=== PATIENT | female | born 1940 | race Caucasian/White ===

== ENCOUNTER → 2017-10-30 09:32 | Outpatient (CLI) | payer MEDICARE, OTHER, SELFPAY ==
--- NOTE | 2017-10-30 09:38 | RAD_ITS ---
STUDY: X-RAY CHEST REASON FOR EXAM: Female, 76 years old. Dyspnea. Chest pain. TECHNIQUE: PA and lateral views of the chest. COMPARISON: Comparison is made with prior study dated September 09, 2012. FINDINGS: Hyperinflation. Scattered calcified granulomas. There is no demonstrated pleural abnormality. Normal size heart. Normal mediastinum and zaida. Normal visualized pulmonary arteries. Normal visualized aortic arch and descending thoracic aorta. There are diffuse degenerative changes of the visualized thoracic spine. Normal visualized ribs, clavicles, and shoulders. There is no demonstrated abnormality of the visualized soft tissue structures of the upper abdomen. RAD/Chest PA and Lateral IMPRESSION: Hyperinflation. No acute abnormality is seen. Electronically Signed: Franco Garcia MD at 20:01 EST Tel [phone], Service support ,
[2017-10-30 12:08] LABS: Absolute Lymphocyte Count 1.08 X10^3/ul (0.83-4.51); Absolute Neutrophil Count 3.4 X10^3/uL (2.0-7.7); Basophil# 0.01 X10^3/uL; Basophil% 0.2 % (0-1); Eosinophil# 0.13 X10^3/uL; Eosinophils% 2.6 % (0-5); Hematocrit 43.2 % (37-47); Hemoglobin 13.6 g/dl (12.0-15.0); Lymphocyte # 1.08 X10^3/ul (4.0); Lymphocyte % 21.3 % (19-41); Mean Corp Hgb Conc 31.5 g/gl (32-36); Mean Corpuscular Hgb 29.6 pg (27.0-32.0); Mean Corpuscular Volume 93.9 fL (81-99); Mean Platelet Vol. 11.4 fl (6.2-12.0); Monocyte# 0.46 X10^3/uL; Monocyte% 9.1 % (0-10); Neutrophil # 3.38 X10^3/uL (2.7-7.7); Neutrophil % 66.6 % (47-70); Platelet Count 188 K/mm3 (150-450); RBC Distribution Width CV 13.9 % (11.6-14.6); RBC Distribution Width SD 47.3 fl (35.1-43.9); White Blood Count 5.1 K/mm3 (4.4-11.0)
[2017-10-30 12:23] LABS: POSITIVE COUNT NO; POSITIVE DIFFERENTIAL NO; POSITIVE MORPHOLOGY NO
[2017-10-30 12:39] LABS: ALB/GLOB Ratio 0.9 RATIO (0.9-2.4); AST(SGOT) 26 U/L (15-37); Alanine Aminotransfer ALT/SGPT 31 U/L (13-56); Albumin, Serum 3.7 g/dL (3.2-5.0); Alkaline Phosphatase 64 U/L (45-117); Anion Gap 4 (5-15); BUN 15 mg/dL (7-18); BUN/Creat Ratio 12.7 RATIO (10-20); Chloride 104 mmol/L (98-107); Creatinine, Serum 1.18 mg/dL (0.55-1.02); EST Glomerular Filtration Rate 47 mL/min (>60); Est Glom Filt Rate - Afr Amer 57 mL/min (>60); Globulin 4.1 g/dL (2.2-4.2); Glucose 130 mg/dL (74-106); Lipase 356 U/L (73-393); Potassium 3.7 mmol/L (3.5-5.1); Protein, Total 7.8 g/dL (6.4-8.2); Sodium Level 140 mmol/L (136-145); Thyroid Stim Hormone (TSH) 3.09 uIU/mL (0.358-3.74)
[2017-10-31 10:29] LABS: Vitamin B12 413 pg/mL (211-911)
== END ==
PROVIDERS: Family Provider Family Medicine; PCP Family Medicine; Visit Provider Family Medicine
DX: K29.00 Acute gastritis without bleeding (principal); R07.89 Other chest pain; M54.9 Dorsalgia, unspecified; E88.81 Metabolic syndrome and other insulin resistance; E53.8 Deficiency of other specified B group vitamins
CPT/HCPCS: 36415; 71046; 80053; 82607; 83690; 84443; 85025; 87086

== ENCOUNTER 2017-12-14 14:00 | Outpatient (RCR) | payer MEDICARE, OTHER, SELFPAY ==
--- NOTE | 2017-11-14 16:36 | HP.PTEVAL_ITS ---
Patient's Visit Information BUD DIAMOND is a 76 year old F referred to Physical Therapy by Andrés ROMEO with a diagnosis of CHRONIC UPPER AND LOWER BACK PAIN. Date of Evaluation: 11/14/17 Physical Therapist: Edyta Aldana - Visit Plan Frequency: 1x/Week Duration: 7 WEEKS Plan: CONSIDER DRY NEEDLING. LAND AND AQUATIC THERAPY FOR POSTURE CORRECTION/ STRENGTHENING, INSTRUCTION IN APPROPRIATE BODY MECHANICS AND ACTIVITY MODIFICATIONS. DLS STARTING WITH A NEUTRAL SPINE PROGRESSING ROM TOLERATED. MAKENNA LE ROM, STRETCHING AND STRENGTHENING. HEP INSTRUCTION. INCLUDE VERTICAL HANG TRIAL IN POOL. 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 Disability: NO. Present symptoms: PATIENT REPORTS HER CONSTANT CHRONIC UPPER AND LOWER BACK PAIN WORSENING WITH PAIN, NUMBNESS AND TINGLING DOWN LEFT LE ALL THE WAY TO THE FOOT INTERMITTENTLY. Present since: MANY YEARS. Pain Scale: WORST 8/10, LEAST 2/10. Currently: 8/10. Commenced as a result of: NO APPARENT REASON. Symptoms at onset: LOW BACK. Worse: STANDING DOING DISHES, VACUMING, GROCERY SHOPPING, SWEEPING, HITTING BUMPS WHEN RIDING IN THE CAR. Better: GOING UP AND DOWN STAIRS RELEASES IT A LITTLE BIT. SOMETIMES ICY HOT. ALEVE. ICE PACK. Disturbed sleep: YES. Previous history/Previous treatment: PT A LONG TIME AGO - LAND AND POOL. POOL HELPED MORE. STATES SHE TRIED TENS IN THE PAST AND THERE WAS NO LASTING RELIEF. Coughing/sneezing/ straining: POSITIVE. Gait: OK FOR THE FIRST FEW MINUTES BUT THE LONGER SHE GOES THE WORSE IT GETS. Difficulty initiating urinatin: NO. Accidents: NO. Unexplained weight loss: NO. Imaging: X-RAYS FALL OF 2017 OF BACK SHOWING: Generalized osteopenia with stable postfusion changes at L4-5. There is intervertebral disc. space narrowing at L2-3, L3-4 and L4-5, relatively unchanged from the. comparison 2012 MRI study. No new or acute pathology identified. - Objective Sitting Posture: POOR. Standing Posture: POOR. STANDS WITH INCREASED TRUNK FLEXION. INCREASED KYPHOSIS, FORWARD HEAD AND ROUNDED SHOULDERS. Lordosis: DECREASED. Lateral shift: NO. Relevant shift: NO. Active Correction of posture: WORSE. Other Observations: INDEP GAIT INTO PT WITHOUT ASSITIVE DEVICE WITH DECREASED CADANCE, INCREASED TRUNK FLEXION AND DECREASED MAKENNA STRIDE LENGTH AND LEFT HIP HIKE. DECREASED LEFT HEEL STRIKE AND TOE OFF. INDEP TRANSFER SIT TO STAND WITHOUT UE ASSIST BUT VERY DIFFICULT. DIFFICULTY APPEARS TO COME MORE FROM LE WEAKNESS THAN BACK PAIN. Motor deficit: RIGHT LE 5/5 WITH MMT EXCEPT HIP 4/5. LLE: HIP FLEX 4-/5, KNEE EXT 4-/5, KNEE FLEX 4-/5, ANKLE DORSIFLEXION 2/5. Sensory deficit: MAKENNA LE LIGHT TOUCH SENSATION IS INTACT AND SYMMETRICAL WITH TESTING IN CLINIC TODAY - EVEN LEFT FOOT. ROM deficit: TIGHT MAKENNA HS'S AND GASTROC SOLEUS COMPLEX'S ALONG WITH HIP FLEXORS AND ROTATORS. Reflexes: 2/2 MAKENNA LE'S EXCEPT LEFT ACHILLES - ABSENT. Dural Signs: POSITIVE LLE. Lumbar mvmt loss: flex - MOD. ext - SAÚL. R SG - SAÚL. L SG - SAÚL. T/S MVMT LOSS: MAKENNA ROTATION - MODERATE. FLEX - MOD. EXT - SAÚL. PATIENT WITH C/O INCREASED BACK PAIN - ESPECIALLY LOW BACK, WITH SPINE ROM TESTING ALL PLANES. Core strength: POOR. Palpation: PATIENT IS VERY TENDER TODAY IN LUMBAR SPINE BUT NOT THORACIC. INCREASED MUSCLE TONE MAKENNA PARASPINALS THROUGHOUT. - Goals Goal 1:: DECREASE C/O BACK PAIN Goal Time Frame: 6-8 Weeks Goal 2:: IMPROVE LIFTING, WALKING, SITTING, STANDING, SOCIAL LIFE, TRAVEL AND HOMEMAKING FUNCTION Goal Time Frame: 6-8 Weeks Goal 3:: INSTRUCT IN PROPHYLAXIS Goal Time Frame: 6-8 Weeks - Rehabilitation Potential Rehabilitation Potential: Fair - Anticipated Interventions Patient/Client Instruction: Educate patient on: Condition, Plan of Care, Risk Factors, Benefits of Fitness Program For the Purpose of:: To improve self management Therapeutic Exercise to Include: Strength training, Body mechanics, Postural training, Flexibilty training, In an aquatic setting, Dynamic Lumbar Stabilization, Scapular Strength/Stabilization For the Purpose of:: To decrease pain, To improve ability of physical actions for home/community/work/leisure Manual Therapy Techniques to Include: Functional dry needling For the Purpose of:: To decrease pain Pelvic traction supine: Yes For the Purpose of:: To decrease pain Thank you for the opportunity to evaluate your patient. For Medicare and Medicare HMO plans, please review the plan of care and approve it. It will need to be FAXED BACK to us at [phone] for Medicare purposes. Please let me know if there are questions or concerns regarding this plan of care. Physician Signature: Date:
--- NOTE | 2017-12-14 14:44 | HP.PTDCSUM ---
HP - PT D/C Summary It has been my pleasure to treat BUD DIAMOND under orders from DR.ESMITH Zach for the diagnosis of CHRONIC UPPER AND LOWER BACK PAIN for a total of 10 visit(s). Discharge Date: 12/14/17 Please see the following information for a summary of their discharge status. - Subjective Subjective: PATIENT REPORTS SHE IS DOING A LOT BETTER. PATIENT REPORTS SHE FEELS MORE LIMBER AND ALL OF THE THERAPY HAS HELPED. PATIENT REPORTS SHE IS MUCH MORE AWARE OF HER POSTURE AND BODY MECHANICS NOW AND SHE PLANS TO CONTINUE HER HEP AND EX IN A POOL WHEN SHE CAN. - Pain LOW BACK Pain Intensity (Out of 10): 1 UPPER BACK Pain Intensity (Out of 10): 0 NECK\ Pain Intensity (Out of 10): 0 LEFT ANKLE/HEEL Pain Intensity (Out of 10): 0 - Overall Improvement % Improvement: 80 - Objective Objective/Function: ALL GOALS MET. UPON EXAM: INDEP GAIT INTO PT WITHOUT ASSITIVE DEVICE FAIR CADANCE AND SYMMETRICAL GAIT. SHE IS NO LONGER HIKING HER HIP OR LIMPING ON THE LLE. SHE STATES IT IS GOOD TODAY. INDEP TRANSFER SIT TO STAND WITHOUT UE ASSIST WITH EASE TODAY. Motor deficit: RIGHT LE 5/5 WITH MMT. LLE: HIP FLEX 4/5, KNEE EXT 4/5, KNEE FLEX 4/5, ANKLE DORSIFLEXION 3/5. PATIENT IS NOW ABLE TO FULLY DORSIFLEX HER LEFT ANKLE AGAINST GRAVITY. Sensory deficit: MAKENNA LE LIGHT TOUCH SENSATION IS INTACT AND SYMMETRICAL WITH TESTING IN CLINIC TODAY - EVEN LEFT FOOT. ROM deficit: MILD LE TIGHTNESS BUT IMPROVING. Reflexes: 2/2 MAKENNA LE'S EXCEPT LEFT ACHILLES - ABSENT. Dural Signs: NEGATIVE MAKENNA LE'S. Lumbar mvmt loss: flex - NIL. ext - SAÚL - PROVOKES INCREASED LBP. R SG - MOD. L SG - MOD - PROVOKES MILD RIGHT LOW BACK PAIN. T/S MVMT LOSS: MAKENNA ROTATION - MODERATE. FLEX - MOD. EXT - SAÚL - NO INCREASED PAIN WITH THORACIC ROM TESTING. Core strength: POOR. 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 PATIENT IS NOW ABLE TO SLS ON MAKENNA LE'S WITHOUT UE ASSIST X > 20 SEC EACH BUT A LITTLE MORE UNSTEADY ON LLE. - Goals Goal 1:: DECREASE C/O BACK PAIN Goal Progress: Goal Met Goal 2:: IMPROVE LIFTING, WALKING, SITTING, STANDING, SOCIAL LIFE, TRAVEL AND HOMEMAKING FUNCTION Goal Progress: Goal Met Goal 3:: INSTRUCT IN PROPHYLAXIS Goal Progress: Goal Met - Plan Plan: D/C TO INDEP EX - PATIENT IS CONSIDERING WATER EX AT THE [facility]. - D/C Information Discharge Comments: PATIENT IS LEAVING FOR VACATION TOMORROW. If there are questions or concerns regarding this patient's physical therapy, please feel free to call me at [phone]. Thank you for the referral of this patient. Sincerely, Edyta Aldana
== END 2017-12-14 19:00 | disposition home or self-care (01) ==
LOC: PT 14:00
PROVIDERS: Family Provider Family Medicine; PCP Family Medicine; Visit Provider Family Medicine
DX: M54.9 Dorsalgia, unspecified (principal); M54.5 Low back pain; G89.29 Other chronic pain
CPT/HCPCS: 97110; 97113; 97162; 97530

== ENCOUNTER → 2018-01-31 08:03 | Outpatient (CLI) | payer MEDICARE, OTHER, SELFPAY ==
[2018-01-31 10:15] LABS: Absolute Lymphocyte Count 1.19 X10^3/ul (0.83-4.51); Absolute Neutrophil Count 2.6 X10^3/uL (2.0-7.7); Basophil# 0.01 X10^3/uL; Basophil% 0.2 % (0-1); Eosinophil# 0.14 X10^3/uL; Eosinophils% 3.2 % (0-5); Hematocrit 40.6 % (37-47); Hemoglobin 13.1 g/dl (12.0-15.0); Lymphocyte # 1.19 X10^3/ul (4.0); Lymphocyte % 27.2 % (19-41); Mean Corp Hgb Conc 32.3 g/gl (32-36); Mean Corpuscular Volume 92.9 fL (81-99); Mean Platelet Vol. 11.5 fl (6.2-12.0); Monocyte# 0.43 X10^3/uL; Monocyte% 9.8 % (0-10); Neutrophil # 2.59 X10^3/uL (2.7-7.7); Neutrophil % 59.4 % (47-70); POSITIVE COUNT NO; POSITIVE DIFFERENTIAL NO; POSITIVE MORPHOLOGY NO; Platelet Count 162 K/mm3 (150-450); RBC Distribution Width CV 14.1 % (11.6-14.6); RBC Distribution Width SD 46.4 fl (35.1-43.9); Red Blood Count 4.37 M/mm3 (4.2-5.4); White Blood Count 4.4 K/mm3 (4.4-11.0)
[2018-01-31 11:26] LABS: Cholesterol 236 mg/dL (200); High Density Lipoprotein 38 mg/dL; Thyroid Stim Hormone (TSH) 0.54 uIU/mL (0.358-3.74); Triglycerides 157 mg/dL; Uric Acid 5.1 mg/dL (2.6-6.0); Very Low Density Lipoprotein 31 mg/dL (5-40)
[2018-01-31 11:40] LABS: Hemoglobin A1c 6.2 % (4.2-6.3)
[2018-02-01 10:34] LABS: Vitamin B12 357 pg/mL (211-911); Vitamin D,25 Hydroxy 33.1 ng/mL (29.95-100.01)
[2018-02-01 10:40] LABS: PTHIN 103.5 pg/mL (18.4-80.1)
== END ==
PROVIDERS: Family Provider Family Medicine; PCP Family Medicine; Visit Provider Family Medicine
DX: N18.3 Chronic kidney disease, stage 3 (moderate) (principal); E03.9 Hypothyroidism, unspecified; E53.8 Deficiency of other specified B group vitamins; E88.81 Metabolic syndrome and other insulin resistance; E78.00 Pure hypercholesterolemia, unspecified
CPT/HCPCS: 36415; 80061; 82043; 82306; 82570; 82607; 82746; 83036; 83970; 84443; 84550; 85025

== ENCOUNTER → 2018-02-11 10:10 | Outpatient (CLI) | payer MEDICARE, OTHER, SELFPAY ==
--- NOTE | 2018-02-11 10:10 | DT_ITS ---
This patient was seen during an EMR downtime February 11, 2018 - February 18, 2018. This patient may have a combination of paper and electronic documentation or all paper documentation. All documentation is viewable within the e-chart portion of [facility] for each patient visit.
--- NOTE | 2018-02-11 10:15 | US_ITS ---
STUDY: THYROID ULTRASOUND REASON FOR EXAM: Female, 77 years old. Hyperparathyroidism. TECHNIQUE: Ultrasound evaluation of the thyroid was performed with real-time and static cifuentes-scale imaging. COMPARISON: None. FINDINGS: RIGHT LOBE: The right lobe of the thyroid gland measures 3 x 0.9 x 0.9 cm. There is a heterogeneous echotexture. There are no demonstrated solid, cystic or complex lesions. There is normal vascularity on Doppler imaging. LEFT LOBE: The left lobe of the thyroid gland measures 2.3 x 0.7 x 0.6 cm. There is a heterogeneous echotexture. There are no demonstrated solid, cystic or complex lesions. There is normal vascularity on Doppler imaging. ISTHMUS: The isthmus measures 0.1 cm. The regional lymph nodes are normal. US/Thyroid IMPRESSION: Small heterogenous thyroid. There is no visualized masses. Electronically Signed: Leonard Howard DO at 16:10 EDT Tel [phone], Service support ,
== END ==
PROVIDERS: Family Provider Family Medicine; PCP Family Medicine; Visit Provider Family Medicine
DX: N25.81 Secondary hyperparathyroidism of renal origin (principal)
CPT/HCPCS: 76536

== ENCOUNTER → 2018-03-19 09:39 | Outpatient (CLI) | payer MEDICARE, OTHER, SELFPAY ==
[2018-03-19 09:47] VITALS: BP 162/84; PULSE 76; RESP 18; TEMP 36.1; O2SAT 96; BMI 31.5
[2018-03-19] MEDS: Zoledronic Acid 5 MG 100 ML 300 MG IV (10:04)
== END ==
PROVIDERS: Family Provider Family Medicine; PCP Family Medicine; Visit Provider Family Medicine
DX: M81.0 Age-related osteoporosis without current pathological fracture (principal)
CPT/HCPCS: 96365; A4216; J3489

== ENCOUNTER → 2018-03-25 15:15 | Outpatient (CLI) | payer MEDICARE, OTHER, SELFPAY ==
--- NOTE | 2018-03-25 15:17 | BI_ITS ---
MAMMOGRAPHY - BILATERAL SCREENING REASON FOR EXAM: Female, 77 years old. Routine annual screening examination. PERTINENT HISTORY: Non-contributory. TECHNIQUE: Digital bilateral breast nona (3D mammographic acquisition) in the CC and MLO projections. 2-D mediolateral oblique (MLO) and craniocaudad (CC) views of both breasts were obtained. CAD: Full Field Digital Mammography with Computer Added Detection was performed. COMPARISON: Comparison is made with prior study dated October 13, 2013 and December 14, 2011. FINDINGS: Breast Composition: The breasts are almost entirely fatty. There are no dominant masses or suspicious calcifications. Stable appearance of the benign-appearing bilateral axillary lymph nodes. No other significant abnormalities are identified. There has been no significant change since the prior study. BI/SCREENING MAMM (CAD), BILAT IMPRESSION: Stable bilateral screening mammogram. Yearly follow-up mammogram recommended. (A) ASSESSMENT CATEGORY: BIRADS Category 2: Benign. A letter regarding these results will be sent to the patient by the facility within 30 days. Approximately 10% of breast cancers are not detected by mammography. A normal mammogram should not delay biopsy of a clinically suspicious abnormality. [id number] Electronically Signed: Franco Garcia MD at 7:52 EDT Tel [phone], Service support ,
== END ==
PROVIDERS: Family Provider Family Medicine; PCP Family Medicine; Visit Provider Family Medicine
DX: Z12.31 Encounter for screening mammogram for malignant neoplasm of breast (principal)
CPT/HCPCS: 77063; 77067

== ENCOUNTER → 2018-09-13 08:17 | Outpatient (CLI) | payer MEDICARE, OTHER, SELFPAY ==
[2018-03-19 09:47] VITALS: BMI 31.5
[2018-09-13 10:18] LABS: Absolute Lymphocyte Count 1.32 X10^3/ul (0.83-4.51); Absolute Neutrophil Count 2.5 X10^3/uL (2.0-7.7); Eosinophil# 0.15 X10^3/uL; Eosinophils% 3.4 % (0-5); Hematocrit 41.2 % (37-47); Lymphocyte # 1.32 X10^3/ul (4.0); Lymphocyte % 29.9 % (19-41); Mean Corp Hgb Conc 31.6 g/gl (32-36); Mean Corpuscular Hgb 29.1 pg (27.0-32.0); Mean Corpuscular Volume 92.2 fL (81-99); Mean Platelet Vol. 10.4 fl (6.2-12.0); Monocyte# 0.39 X10^3/uL; Monocyte% 8.8 % (0-10); Neutrophil # 2.54 X10^3/uL (2.7-7.7); Neutrophil % 57.7 % (47-70); Platelet Count 174 K/mm3 (150-450); RBC Distribution Width CV 14.2 % (11.6-14.6); RBC Distribution Width SD 48.4 fl (35.1-43.9); Red Blood Count 4.47 M/mm3 (4.2-5.4); White Blood Count 4.4 K/mm3 (4.4-11.0)
[2018-09-13 10:21] LABS: POSITIVE COUNT NO; POSITIVE DIFFERENTIAL NO; POSITIVE MORPHOLOGY NO
[2018-09-13 10:32] LABS: Vitamin D,25 Hydroxy 49.9 ng/mL (29.95-100.01)
[2018-09-13 10:34] LABS: BUN 16 mg/dL (7-18); BUN/Creat Ratio 13.6 RATIO (10-20); Calcium,Total 8.8 mg/dL (8.5-10.1); Chloride 105 mmol/L (98-107); Cholesterol 266 mg/dL (200); Creatinine, Serum 1.18 mg/dL (0.55-1.02); EST Glomerular Filtration Rate 47 mL/min (>60); Est Glom Filt Rate - Afr Amer 57 mL/min (>60); Glucose 112 mg/dL (74-106); Potassium 4.2 mmol/L (3.5-5.1); Sodium Level 142 mmol/L (136-145); Triglycerides 186 mg/dL
[2018-09-13 10:35] LABS: Anion Gap 9 (5-15); High Density Lipoprotein 39 mg/dL; Thyroid Stim Hormone (TSH) 2.07 uIU/mL (0.358-3.74); Very Low Density Lipoprotein 37 mg/dL (5-40)
[2018-09-13 10:43] LABS: Microalbumin,Random Urine 12.4 mg/L (NO RANGE EST.)
== END ==
PROVIDERS: Family Provider Family Medicine; PCP Family Medicine; Visit Provider Family Medicine
DX: E03.9 Hypothyroidism, unspecified (principal); N18.3 Chronic kidney disease, stage 3 (moderate); N25.81 Secondary hyperparathyroidism of renal origin
CPT/HCPCS: 36415; 80048; 80061; 82043; 82306; 83970; 84443; 85025

== ENCOUNTER → 2019-01-23 | Outpatient (CLI) | payer MEDICARE, OTHER, SELFPAY ==
[2018-03-19 09:47] VITALS: BMI 31.5
[2019-01-23 17:39] LABS: Hematocrit 40.3 % (37-47); Hemoglobin 12.9 g/dl (12.0-15.0); Mean Corpuscular Hgb 29.2 pg (27.0-32.0); Mean Corpuscular Volume 91.2 fL (81-99); Platelet Count 163 K/mm3 (150-450); RBC Distribution Width CV 14.5 % (11.6-14.6); RBC Distribution Width SD 47.6 fl (35.1-43.9); Red Blood Count 4.42 M/mm3 (4.2-5.4); White Blood Count 5.2 K/mm3 (4.4-11.0)
[2019-01-23 17:44] LABS: Scan Indicated on CBC? Y/N NO
[2019-01-23 18:00] LABS: Albumin, Serum 3.6 g/dL (3.2-5.0); BUN 19 mg/dL (7-18); BUN/Creat Ratio 15.1 RATIO (10-20); Creatinine, Serum 1.26 mg/dL (0.55-1.02); EST Glomerular Filtration Rate 44 mL/min (>60); Est Glom Filt Rate - Afr Amer 53 mL/min (>60); Glucose 145 mg/dL (74-106); Protein, Total 6.9 g/dL (6.4-8.2)
[2019-01-23 18:01] LABS: ALB/GLOB Ratio 1.1 RATIO (0.9-2.4); AST(SGOT) 40 U/L (15-37); Alanine Aminotransfer ALT/SGPT 36 U/L (13-56); Alkaline Phosphatase 58 U/L (45-117); Anion Gap 7 (5-15); Calcium,Total 8.9 mg/dL (8.5-10.1); Chloride 105 mmol/L (98-107); Globulin 3.3 g/dL (2.2-4.2); Magnesium 2.4 mg/dL (1.6-2.6); Potassium 4.1 mmol/L (3.5-5.1); Sodium Level 142 mmol/L (136-145); Thyroid Stim Hormone (TSH) 1.16 uIU/mL (0.358-3.74)
[2019-01-27 11:17] LABS: H. PYLORI STOOL AG Negative (Negative)
== END | disposition home or self-care (01) ==
LOC: MFPLAB 15:39
PROVIDERS: Family Provider Family Medicine; PCP Family Medicine; Referring Provider Family Medicine; Visit Provider Family Medicine
DX: K21.9 Gastro-esophageal reflux disease without esophagitis (principal); R19.7 Diarrhea, unspecified
CPT/HCPCS: 36415; 80053; 83735; 84443; 85027

== ENCOUNTER → 2019-09-04 09:33 | Outpatient (CLI) | payer MEDICARE, OTHER, SELFPAY ==
[2019-09-04 10:51] LABS: Anion Gap 5 (5-15); BUN 15 mg/dL (7-18); BUN/Creat Ratio 13.9 RATIO (10-20); Calcium,Total 8.7 mg/dL (8.5-10.1); Chloride 108 mmol/L (98-107); Cholesterol 229 mg/dL (200); Creatinine, Serum 1.08 mg/dL (0.55-1.02); EST Glomerular Filtration Rate 52 mL/min (>60); Est Glom Filt Rate - Afr Amer 63 mL/min (>60); Glucose 101 mg/dL (74-106); High Density Lipoprotein 41 mg/dL; Potassium 3.9 mmol/L (3.5-5.1); Sodium Level 142 mmol/L (136-145); Thyroid Stim Hormone (TSH) 0.18 uIU/mL (0.358-3.74); Triglycerides 170 mg/dL; Very Low Density Lipoprotein 34 mg/dL (5-40)
== END ==
PROVIDERS: Nurse Practitioner Family; Family Provider Family Medicine; PCP Family Medicine; Visit Provider Family Medicine
DX: N18.3 Chronic kidney disease, stage 3 (moderate) (principal); E78.00 Pure hypercholesterolemia, unspecified; E03.9 Hypothyroidism, unspecified
CPT/HCPCS: 36415; 80048; 80061; 84443

== ENCOUNTER 2019-09-23 19:50 | Observation (INO) | payer MEDICARE, OTHER, SELFPAY ==
[2019-09-23 19:51] VITALS: BP 218/102; PULSE 121; RESP 17; TEMP 36.9; O2SAT 98; BMI 27.4
--- NOTE | 2019-09-23 19:53 | ED.RN ---
RN CALLED FOR EKG, PULLED OLD EKGS FOR
--- NOTE | 2019-09-23 20:42 | EKG12_ITS ---
Test Reason : CP Blood Pressure : / mmHG Vent. Rate : 144 BPM Atrial Rate : 144 BPM P-R Int : 130 ms QRS Dur : 082 ms QT Int : 288 ms P-R-T Axes : 076 042 033 degrees QTc Int : [address] & T wave abnormality, consider inferior ischemia Abnormal ECG Confirmed by ARPIT HOPSON, MILLIE ([id number]), sound editor ARMINDA MEDINA ([id number]) on 09/26/2019 9:57:43 AM Referred By: HEBERT Confirmed By:CLARISSA MUNSON MD
--- NOTE | 2019-09-23 20:44 | RAD_ITS ---
STUDY: X-RAY CHEST REASON FOR EXAM: Female, 78 years old. chest pain TECHNIQUE: AP COMPARISON: September 09, 2012 FINDINGS: Lungs are mildly hyperinflated but clear.. There is no demonstrated pleural abnormality. Normal size heart. Normal mediastinum and zaida. Normal visualized pulmonary arteries. Normal visualized aortic arch and descending thoracic aorta. Dorsal spine demonstrates mild degenerative change. Normal visualized ribs, clavicles, and shoulders. There is no demonstrated abnormality of the visualized soft tissue structures of the upper abdomen. RAD/Chest 1 View (Portable) IMPRESSION: Mild hyperinflation. No acute disease Electronically Signed: Jin Maxwell MD at 21:12 EST , Service support ,
[2019-09-23 20:53] LABS: Absolute Lymphocyte Count 2.96 X10^3/uL (0.83-4.51); Basophil# 0.02 X10^3/uL; Basophil% 0.3 % (0-1); Eosinophil# 0.15 X10^3/uL; Eosinophils% 2.2 % (0-5); Hematocrit 44.5 % (37-47); Hemoglobin 14.3 g/dL (12.0-15.0); Lymphocyte # 2.96 X10^3/ul (4.0); Lymphocyte % 43.9 % (19-41); Mean Corp Hgb Conc 32.1 g/dL (32-36); Mean Corpuscular Hgb 29.7 pg (27.0-32.0); Mean Corpuscular Volume 92.5 fL (81-99); Mean Platelet Vol. 11.1 fl (6.2-12.0); Monocyte# 0.59 X10^3/uL; Monocyte% 8.7 % (0-10); NRBC Flagged by Analyzer 0 % (0-5); Neutrophil # 3.02 X10^3/uL (2.7-7.7); Neutrophil % 44.8 % (47-70); Platelet Count 185 K/mm3 (150-450); RBC Distribution Width CV 13.3 % (11.6-14.6); RBC Distribution Width SD 44.9 fl (35.1-43.9); Red Blood Count 4.81 M/mm3 (4.2-5.4); White Blood Count 6.8 K/mm3 (4.4-11.0)
[2019-09-23] MEDS: Aspirin 81 MG TAB.CHEW 324 MG PO (20:54)
[2019-09-23 21:07] LABS: Anion Gap 7 (5-15); BUN 14 mg/dL (7-18); BUN/Creat Ratio 10.1 RATIO (10-20); Calcium,Total 9.4 mg/dL (8.5-10.1); Chloride 106 mmol/L (98-107); Creatinine, Serum 1.38 mg/dL (0.55-1.02); EST Glomerular Filtration Rate 39 mL/min (>60); Est Glom Filt Rate - Afr Amer 48 mL/min (>60); Glucose 151 mg/dL (74-106); Potassium 3.2 mmol/L (3.5-5.1); Sodium Level 140 mmol/L (136-145)
[2019-09-23 22:00] VITALS: BP 149/89; PULSE 99; RESP 14; O2SAT 95
--- NOTE | 2019-09-23 22:31 | ED.DCSUM_ITS ---
- ER Visit Summary Date of Service: 09/23/19 Chief Complaint: Left shoulder pain History of Present Illness: The patient is a 78 F presenting with left shoulder pain and elevated blood pressure. Her symptoms been intermittent for the past 2 days. She has left shoulder pain that radiates to her left arm and left side of her jaw. She has intermittent left arm tingling. She denies shortness of breath. She has nausea with no vomiting. She has had a mild headache. She has a history of hypertension, hypercholesterolemia. She is not a smoker. No recent injury Physical Examination: Vitals are stable. Blood pressure 218/102. Patient is afebrile. Alert no acute distress. HEENT exam is unremarkable. Neck is supple. Lungs are clear and equal bilaterally. Heart is regular rate and rhythm. Abdomen is soft nontender nondistended. Extremities are unremarkable. Skin is warm and dry. No focal neurologic deficit. Remainder of exam is unremarkable. Emergency Department Course and Treatment: EKG is sinus tachycardia rate of 114 with no acute ischemic changes. Chest x-ray shows no acute process. CBC, chemistries unremarkable other than potassium 3.2, creatinine 1.38. Troponin is negative. Patient was given aspirin on arrival. She is pain-free on reevaluation. Discussed with hospitalist for admission. Disposition: Admission Impression: Left shoulder and jaw pain, hypertension This note was generated with [employer] dictation software. It may contain incorrect words, spelling, and punctuation that were not noted in review of the chart prior to signing ED Disposition - Plan for ED Patient: Referrals: Andrés Sagastume MD [Primary Care Provider] -
--- NOTE | 2019-09-23 22:50 | HP.PCM_ITS ---
Problem List (1) Chest pain Status: Acute Qualifiers: Ischemic chest pain type: unspecified angina pectoris type (2) GERD (gastroesophageal reflux disease) Status: Chronic Qualifiers: Esophagitis presence: esophagitis presence not specified Qualified Code(s): K21.9 - Gastro-esophageal reflux disease without esophagitis (3) HLD (hyperlipidemia) Status: Chronic Qualifiers: Hyperlipidemia type: unspecified Qualified Code(s): E78.5 - Hyperlipidemia, unspecified (4) HTN (hypertension) Status: Chronic Qualifiers: Hypertension type: essential hypertension Qualified Code(s): I10 - Essential (primary) hypertension (5) Hypothyroidism Status: Chronic Qualifiers: Hypothyroidism type: unspecified Qualified Code(s): E03.9 - Hypothyroidism, unspecified (6) History of throat cancer Status: Chronic History of Present Illness Date of Admission: 09/23/19 Chief Complaint: Chest pain, neck pain The patient is a 78 y/o F w/ PMHx: Hx Throat CA s/p resection and radiation, HTN, Hypothyroidism, CKD stage III who presents to the [facility] ED on 09/23/19 with history of intermittent diffuse L shoulder pain, LUE and L jaw, nausea without emesis with malaise, fatigue, noted she felt terrible but no specific descriptor, not worse with movement nor any improvement with interventions, no associated dyspnea, diaphoresis, worse on day of ED presentation, described as a tightness and a pressure, 2-3 out of 10 at its worse noted is in discomfort more than a pain. Upon evaluation patient noted she had mildly improved to 0-1 out of 10 in severity. Work-up in the ED included T 98.5, heart rate initially 121 with improvement to 99, BP initially 218/102 with improvement to 149/89, respiratory rate 17, 98% on room air, CBC with WBC 6.8, hemoglobin 14.3, platelet 185 without evidence of left shift, BMP with potassium 3.2, BUN/creatinine 14/1.38, glucose 151, troponin less than 0.015, chest x-ray with mild hyperinflation with no acute cardiopulmonary findings, EKG with sinus tachycardia with no acute evidence of ischemia. In the ED patient ministered aspirin 324 mg p.o. x1. Past Medical History Past Medical History (Chronic Problems): Chronic Problems History of throat cancer (Chronic) History of chest pain (Chronic) Osteoporosis (Chronic) Lumbago (Chronic) Hypothyroidism (Chronic) HTN (hypertension) (Chronic) HLD (hyperlipidemia) (Chronic) GERD (gastroesophageal reflux disease) (Chronic) Type II diabetes mellitus, uncontrolled (Chronic) Allergies No Known Allergies Allergy (Verified 09/23/19 19:58) Home Medications: Ambulatory Orders Medication Instructions Recorded Aspirin 81 mg PO DAILY 03/19/18 Febuxostat [Uloric] 20 mg PO DAILY 03/19/18 Levothyroxine [Synthroid] 75 mcg PO DAILY 03/19/18 Lisinopril [Zestril] 10 mg PO DAILY 03/19/18 Metoprolol Tartrate [Lopressor 25 mg PO DAILY 03/19/18 (Beta Mathew)] Surgical History: cholecystectomy, - - Cataract surgery, lumbar back surgery with hardware, cholecystectomy. 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 Denies: Chills, Fever, Weight Change HEENT: Reports: Head Aches. Denies: Sinus Congestion, Sinus Drainage Cardiovascular: Reports: Chest Pain, Chest Pressure, Chest Tightness. Denies: Edema, Heaviness, Light Headedness, Orthopnea, Palpitations, Syncope Respiratory: Denies: Cough, Shortness of Breath, Shortness of breath at rest, Shortness of breath upon exertion, Sputum production, Wheezing Gastrointestinal: Denies: Abdominal Pain, Nausea, Vomiting Genitourinary: Denies: Dysuria Musculoskeletal: Reports: Arm Pain, Joint Pain, Neck Pain, Shoulder Pain. Denies: Joint Tenderness Skin: Denies: Rash, Wounds Neurological: Denies: Numbness, Tingling, Focal weakness Psychiatric: Denies: Anxiety, Depression, Homicidal Ideations, Suicidal Ideations Hematologic/ Lymphatic: Denies: Easy Bruising, Easy Bleeding VTE Information - Inpt Only VTE Present on Admission: No VTE Mechan Device Prophylaxis: SCD's VTE Pharm Prophylaxis ordered?: Yes Patient Problems: Active and Suspected Problems Chest pain (Acute) Subjective: Seated upright in ED bed, mildly fatigued appearance, notes chest discomfort has mildly improved, 0-1 out of 10 in severity currently. Objective: Physical Examination: General: awake, alert, oriented x 3 and cooperative, seated upright in the ED bed in no apparent distress, notes chest discomfort has lessened, fatigued appearing. Skin: normal color, turgor, no icterus, cyanosis. HEENT: AT/NC, EOMI, PERRLA, dry MM, no carotid bruits or JVD noted, no reproducible discomfort with palpation of the neck and upper back as well as shoulder on the left side. Lungs: CTA bilaterally, moderate effort, daughter at decrease BL bases, no rales, ronchi or wheezing. Heart: Regular rate and rhythm; no gallop, rub audible. Abdomen: soft, NTTP, ND, normal BS, no HSM. Extremities: no cyanosis, clubbing, or edema. Neurological: patient awake, alert, oriented x 3; cognitive function intact; pupils equally reactive to light and accomodation; cranial nerves II-XII grossly normal, moving all 4 extremities, no focal deficits, strength mildly globally Carmita secondary to acute presentation and complaints. Psychiatric: affect appears fatigued, no acute evidence of depressive or anxiety feelings. - Physical Exam Vitals/I&O's: Vital Signs Temp Pulse Resp BP Pulse Ox 98.5 F 99 14 149/89 H 95 09/23/19 19:51 09/23/19 22:00 09/23/19 22:00 09/23/19 22:00 09/23/19 22:00 Oxygen Delivery Method Room Air Weight: 150 lb Body Mass Index (BMI) 27.4 Laboratory Results 09/23/19 20:00: WBC 6.8, RBC 4.81, Hgb 14.3, Hct 44.5, MCV 92.5, MCH 29.7, MCHC 32.1, RDW Std Deviation 44.9 H, RDW Coeff of Claude 13.3, Plt Count 185, MPV 11.1, Immature Gran % (Auto) 0.100, Neut % (Auto) 44.8 L, Lymph % (Auto) 43.9 H, Hinds % (Auto) 8.7, Eos % (Auto) 2.2, Baso % (Auto) 0.3, Absolute Neuts (auto) 3.0, Absolute Lymphs (auto) 2.96, Nucleated RBC % 0 01/14/20 20:00: Sodium 140, Potassium 3.2 L, Chloride 106, Carbon Dioxide 27.0, Anion Gap 7, BUN 14, Creatinine 1.38 H, Estim Creat Clear Calc 27.00, Est GFR (MDRD) Af Amer 48 L, Est GFR (MDRD) Non-Af 39 L, BUN/Creatinine Ratio 10.1, Glucose 151 H, Calcium 9.4, Troponin I < 0.015 Assessment/Plan All Active Problems Chest pain (Acute) The patient is a 78 y/o F w/ PMHx: Hx Throat CA s/p resection and radiation, HTN, Hypothyroidism, CKD stage III who presents to the [facility] ED on 09/23/19 with history of intermittent diffuse L shoulder pain, LUE and L jaw, nausea without emesis with malaise, fatigue, noted she felt terrible but no specific descriptor, not worse with movement nor any improvement with interventions, no associated dyspnea, diaphoresis, worse on day of ED presentation. 1. Chest Pain: EKG in ED with sinus tachycardia with no acute evidence of ischemia, CXR w/ no acute cardiopulmonary findings, initial trop x1. Will admit to CCU, place on a monitored bed to assure no acute myocardial infarction with serial cardiac enzymes and EKGs. If repeat EKGs and cardiac enzymes remain unremarkable will pursue a.m. cardiac stress testing. ASA, NG, morphine. FLP in AM. Mag pending. 2. Hypokalemia: Admission K+ 3.2, supplementation given, repeat level in AM. 3. Hyperglycemia w/ ? Prior Noted Diabetes mellitus type II: Prior noted DM in the chart, not on regimen, discussed and did not admit to DM history. Admission glucose 151, likely stress response, will obtain hemoglobin A1c to be cautious. 4. Chronic Kidney Disease Stage III: Admission BUN/Cr 14/1.38, baseline renal function 1.1-1.2, repeat BMP in AM. 5. Hypertension: Continue home regimen including metoprolol, lisinopril, PRN hydralazine. 6. Hypothyroidism: Continue home synthroid regimen, TSH and FT4 pending. 7. History of throat cancer: Status post resection as well as radiation, remission. 8. DVT prophylaxis: SCDs, heparin. 9. CODE status: Patient's who is present is her healthcare power of claims attorney and she does have a living will in place. Discussed CODE status at length including difference between FULL code, DNR-CCA and DNR-CC status. Following discussions about the differences in these status, requested Full Code status; however, notes that if her prognosis was poor she would prefer to then transition to a DNR CCA. Discussed that if this were the case her living will and her will take over decision making at that time she notes understanding and agrees. Advanced Care Planning Face to Face Time: 16 minutes. Code Visit OBSV E&M: [id number] Initial observation care L3 Procedures: [id number] Advncd Care Plan 30 Min
[2019-09-23 23:30] VITALS: BP 187/93; PULSE 100; RESP 18; O2SAT 98
[2019-09-23] MEDS: hydrALAZINE 20 MG/ML Vial 10 MG IV (23:57)
[2019-09-24] VITALS (18 sets, daily range): BP systolic 128–208; BP diastolic 68–99; PULSE 79–149; RESP 10–27; TEMP 36.3–37.1; O2SAT 95–100; BMI 26.7
[2019-09-24] MEDS: Ondansetron 4 MG/2 ML Vial IV (00:35)
[2019-09-24] MEDS: Morphine 4 MG/ML Syringe IV (00:35)
--- NOTE | 2019-09-24 00:36 | ED.RN ---
pt called out with sudden onset chest tightness, flushing, and shivering. Dr lee called to bedside. RT at bedside for EKG. pt HR 140's. Pt in moderate amount distress. order received for zofran and morphine. See NOV.
--- NOTE | 2019-09-24 00:51 | EKG12_ITS ---
Test Reason : CP ADMISSION Blood Pressure : / mmHG Vent. Rate : 099 BPM Atrial Rate : 099 BPM P-R Int : 178 ms QRS Dur : 092 ms QT Int : 370 ms P-R-T Axes : 076 046 056 degrees QTc Int : 474 ms Normal sinus rhythm Normal ECG When compared with ECG of 09-SEP-2012 07:18, T wave inversion no longer evident in Inferior leads Nonspecific T wave abnormality no longer evident in Anterior leads Confirmed by LUMA KELLEY ([id number]), news copy editor ARMINDA MEDINA ([id number]) on 09/25/2019 8:50:25 AM Referred By: LANNY Confirmed By:LUMA KELLEY
--- NOTE | 2019-09-24 00:55 | CT_ITS ---
HISTORY: CP. Hx of hypothyroid, HTN, diabetes(uncontrolled) and cancer of vocal cordsI TECHNIQUE: Helically acquired images were obtained of the chest following the intravenous administration of 75 ML of Isovue-370 Iodinated contrast. as per pulmonary angiogram protocol with 2D MIP reconstructions. A radiation dose optimization technique was used for this scan. COMPARISON: Chest x-ray from just over 4 hours earlier. Abdomen pelvis CT most recently is from July 24, 2017. No previous chest CT is available at this institution FINDINGS: # of images incl. paperwork: [id number] The vocal cords are more cranial than imaged. Lungs are clear and hyperexpanded. Evidence for mild chronic bronchitis. Right lower lobe and to a lesser degree left lateral costophrenic sulcal scarring. No effusions. Within the thoracic spinethere is a mild kyphosis. Degenerative disc disease is present at several levels. Many bridging anterior enthesophytes. Endplate sclerosis. Vertebral body height is normal. Facets are well aligned. No rib lesions are perceived. Heart is not enlarged. Thoracic aorta disease with minimal atherosclerotic plaque. Calcific plaque is also present within the coronary arteries. No aneurysms, stenoses, dissections, nor occlusions. No axillary or mediastinal adenopathy. No pulmonary emboli. The thyroid gland is not identified. This could be that it is more cranial than imaged, or that it is severely atrophic Visualized portions of the upper abdomen are without identified acute pathology. CT/CTA Chest W/WO Contrast IMPRESSION: No pulmonary embolism, aortic aneurysm, or aortic dissection. Individualized dose optimization techniques were used for this CT. at 0219 Reported and signed by: Kimani Bedoya MD Electronically Signed: Kimani Bedoya MD at 2:18 EST Tel , Service support ,
--- NOTE | 2019-09-24 00:55 | ED.RN ---
Dr Alexander called and updated on patients change in status. Dr alexander states to give pt Nitro paste 1 inch and send her to PCU. Dr Kerns does not want Nitropaste given. States she will talk to Dr Alexander before patient going upstairs. Pt care reported to Samuel Pérez RN at this time.
--- NOTE | 2019-09-24 02:38 | EKG12_ITS ---
Test Reason : Blood Pressure : / mmHG Vent. Rate : 114 BPM Atrial Rate : 114 BPM P-R Int : 158 ms QRS Dur : 092 ms QT Int : 336 ms P-R-T Axes : 072 015 036 degrees QTc Int : 463 ms Sinus tachycardia Nonspecific ST abnormality Abnormal ECG Confirmed by ARPIT HOPSON, MILLIE ([id number]), news copy editor ARMINDA MEDINA ([id number]) on 09/26/2019 9:57:54 AM Referred By: Confirmed By:CLARISSA MUNSON MD
[2019-09-24] MEDS: 0.9% Normal Saline 1,000 ML 75 ML IV ×2 (03:52→14:46)
[2019-09-24 03:54] LABS: Prothrombin Time (Protime)PT. 13.4 SECONDS (11.7-14.9)
[2019-09-24] MEDS: Heparin Injection (Vial) 5,000 UNIT/ML VIAL 4500 UNIT IV (04:26)
[2019-09-24] MEDS: HEPARIN/D5w 25,000 UNITS 25,000 UNITS/250 ML IV.SOLN. 10 UNITS IV (04:32)
[2019-09-24 05:11] LABS: Magnesium 2.1 mg/dL (1.6-2.6); T4 Free Direct 1.02 ng/dL (0.76-1.46); Thyroid Stim Hormone (TSH) 3.78 uIU/mL (0.358-3.74)
[2019-09-24 06:44] LABS: Absolute Lymphocyte Count 1.71 X10^3/uL (0.83-4.51); Absolute Neutrophil Count 4.1 X10^3/uL (2.0-7.7); Basophil# 0.01 X10^3/uL; Basophil% 0.2 % (0-1); Eosinophils% 1.5 % (0-5); Hemoglobin 13.5 g/dL (12.0-15.0); Lymphocyte # 1.71 X10^3/ul (4.0); Lymphocyte % 26.1 % (19-41); Mean Corp Hgb Conc 32.1 g/dL (32-36); Mean Corpuscular Hgb 29.6 pg (27.0-32.0); Mean Corpuscular Volume 92.1 fL (81-99); Mean Platelet Vol. 10.3 fl (6.2-12.0); Monocyte% 9.1 % (0-10); NRBC Flagged by Analyzer 0 % (0-5); Neutrophil # 4.12 X10^3/uL (2.7-7.7); Neutrophil % 62.8 % (47-70); Platelet Count 159 K/mm3 (150-450); RBC Distribution Width CV 13.4 % (11.6-14.6); RBC Distribution Width SD 45.2 fl (35.1-43.9); Red Blood Count 4.56 M/mm3 (4.2-5.4); White Blood Count 6.6 K/mm3 (4.4-11.0)
[2019-09-24] MEDS: Aspirin 81 MG TAB.CHEW PO (06:49)
[2019-09-24] MEDS: Lisinopril 10 MG Tablet PO (06:49)
[2019-09-24] MEDS: Levothyroxine 75 MCG Tablet PO (06:49)
[2019-09-24 07:02] LABS: Anion Gap 5 (5-15); BUN 11 mg/dL (7-18); BUN/Creat Ratio 9.5 RATIO (10-20); Calcium,Total 8.6 mg/dL (8.5-10.1); Chloride 109 mmol/L (98-107); Cholesterol 241 mg/dL (200); Creatinine, Serum 1.16 mg/dL (0.55-1.02); EST Glomerular Filtration Rate 48 mL/min (>60); Est Glom Filt Rate - Afr Amer 58 mL/min (>60); Estimated Creatinine Clearance 32.12 ml/min; Glucose 109 mg/dL (74-106); High Density Lipoprotein 42 mg/dL; Potassium 3.8 mmol/L (3.5-5.1); Sodium Level 142 mmol/L (136-145); Triglycerides 85 mg/dL; Very Low Density Lipoprotein 17 mg/dL (5-40)
[2019-09-24 07:44] LABS: Hemoglobin A1c 6.2 % (4.2-6.3)
--- NOTE | 2019-09-24 08:32 | PCM.CONS.C ---
<Dane Pruitt - Last Filed: 09/24/19 09:01> Problem List (1) History of chest pain Status: Chronic (2) HTN (hypertension) Status: Chronic Qualifiers: Hypertension type: essential hypertension Qualified Code(s): I10 - Essential (primary) hypertension (3) HLD (hyperlipidemia) Status: Chronic Qualifiers: Hyperlipidemia type: unspecified Qualified Code(s): E78.5 - Hyperlipidemia, unspecified Reason for Consult Date of Consultation: 09/24/19 Reason for Consultation: Rule out CAD, HTN, HLD History of Present Illness: The patient is a 78 year old F who presented to [facility] emergency department 09/23/2019 for 2 days of left shoulder pain and elevated blood pressure associated with mild headache and nausea. He has a past medical history of hypertension, hyperlipidemia, throat cancer status post resection and radiation, hypothyroidism, and chronic kidney disease. Her Emergency Department work-up revealed a blood pressure of 218/102, EKG showing sinus tachycardia without acute ST or T wave changes, negative troponin, hemoglobin of 14.3, and creatinine of 1.38. Given her symptoms, there was concerns for coronary artery disease component. She was admitted for further evaluation. Cardiology was consulted for further input. Past Medical History Allergies/Adverse Reactions: Allergies No Known Allergies Allergy (Verified 09/23/19 19:58) Home Medications: Ambulatory Orders Medication Instructions Recorded Aspirin 81 mg PO DAILY 03/19/18 Febuxostat [Uloric] 20 mg PO DAILY 03/19/18 Levothyroxine [Synthroid] 75 mcg PO DAILY 03/19/18 Lisinopril [Zestril] 10 mg PO DAILY 03/19/18 Metoprolol Tartrate [Lopressor 25 mg PO DAILY 03/19/18 (Beta Mathew)] Past Medical History (Chronic Problems): Chronic Problems History of throat cancer (Chronic) History of chest pain (Chronic) Osteoporosis (Chronic) Lumbago (Chronic) Hypothyroidism (Chronic) HTN (hypertension) (Chronic) HLD (hyperlipidemia) (Chronic) GERD (gastroesophageal reflux disease) (Chronic) Type II diabetes mellitus, uncontrolled (Chronic) Surgical History: cholecystectomy, - - Cataract surgery, lumbar back surgery with hardware, cholecystectomy. Psychiatric History: No pertinent psych hx CLINICAL EXERCISE PHYSIOLOGIST History: No pertinent CLINICAL EXERCISE PHYSIOLOGIST history - *Family History Maternal History Items: Hypertension Paternal History Items: Heart Disease, Hypertension Lives: Spouse/ Significant Other Smoking Status: Never smoker Tobacco Use: Non-smoker Alcohol: None Drugs: None Review of Systems - Review of Systems General: Reports: Fatigue. Denies: Fever, Malaise HEENT: Denies: Vision Change Cardiovascular: Reports: Chest Discomfort, Chest Discomfort at Rest, Chest Heaviness, Dizziness. Denies: Chest Discomfort with Exertion, Chest Pressure, Chest Tightness, Shortness of Breath, Shortness of Breath at Rest, Shortness of Breath with Exertion, Orthopnea, PND, Peripheral Edema, Palpitations, Lightheadedness, Near Syncope, Syncope, Orthostatic Symptoms, Claudication Respiratory: Denies: Cough Neurological: Reports: Dizziness Subjectve: Patient seen and evaluated. She states that her left arm,jaw, and neck pain has resolved. She does acknowledge center chest discomfort of 2 out of 10. She denies any shortness of breath. She acknowledges a mild headache. She denies nausea. She acknowledges dizziness with position changes. Objective: Vital Signs Temp Pulse Resp BP Pulse Ox 98.4 F 95 16 156/86 H 96 09/24/19 08:04 09/24/19 08:04 09/24/19 08:04 09/24/19 08:04 09/24/19 08:04 Oxygen Delivery Method Room Air Weight: 146 lb 2.664 oz Body Mass Index (BMI) 26.7 Intake and Output for Last 24 Hours 09/22/19 09/23/19 09/24/19 23:59 23:59 23:59 Intake Total 0 / 0 Balance 0 / 0 General: Healthy Appearing, Awake, Alert, Oriented x 3, Cooperative HEENT: Atraumatic Oral: Moist Mucosa Neck: No JVD Lungs: Clear to auscultation Cardiovascular: Regular Rhythm, Normal S1, Normal S2, No Murmurs, No Rubs, No Gallops Vascular: No Carotid Bruits Extremities: No Cyanosis, No Clubbing, No edema, Normal Capillary Refill Neurological: No Focal Motor or Sensory Deficit Psych/Mental Status: Appropriate 09/23/19 20:00: WBC 6.8, RBC 4.81, Hgb 14.3, Hct 44.5, MCV 92.5, MCH 29.7, MCHC 32.1, Plt Count 185, MPV 11.1, Immature Gran % (Auto) 0.100, Neut % (Auto) 44.8 L, Lymph % (Auto) 43.9 H, [place] % (Auto) 8.7, Eos % (Auto) 2.2, Baso % (Auto) 0.3, Absolute Neuts (auto) 3.0, Nucleated RBC % 0 09/23/19 20:00: Sodium 140, Potassium 3.2 L, Chloride 106, Carbon Dioxide 27.0, Anion Gap 7, BUN 14, Creatinine 1.38 H, Est GFR (MDRD) Af Amer 48 L, Est GFR (MDRD) Non-Af 39 L, BUN/Creatinine Ratio 10.1, Glucose 151 H, Calcium 9.4, Troponin I < 0.015 09/24/19 00:45: Troponin I 0.029 09/24/19 03:08: Magnesium 2.1, Troponin I 0.038 09/24/19 03:08: PT 13.4, INR 1.0, APTT 29.0 09/24/19 06:35: Sodium 142, Potassium 3.8, Chloride 109 H, Carbon Dioxide 28.0, Anion Gap 5, BUN 11, Creatinine 1.16 H, Est GFR (MDRD) Af Amer 58 L, Est GFR (MDRD) Non-Af 48 L, BUN/Creatinine Ratio 9.5 L, Glucose 109 H, Calcium 8.6, Troponin I 0.031, Triglycerides 85, Cholesterol 241 H, LDL Cholesterol 182 H, VLDL Cholesterol 17, HDL Cholesterol 42 09/24/19 06:35: Hemoglobin A1c 6.2 09/24/19 06:35: WBC 6.6, RBC 4.56, Hgb 13.5, Hct 42.0, MCV 92.1, MCH 29.6, MCHC 32.1, Plt Count 159, MPV 10.3, Immature Gran % (Auto) 0.300, Neut % (Auto) 62.8, Lymph % (Auto) 26.1, [place]os % (Auto) 9.1, Eos % (Auto) 1.5, Baso % (Auto) 0.2, Absolute Neuts (auto) 4.1, Nucleated RBC % 0 Rhythm: EKG: ECHO: 09/09/2012 Ejection action 55%. Negative for ischemia. Stress Test: Cardiac Cath: PCI: CT Surgery: Holter monitor: EPS: PPM: CXR: Chest CT Scan: Assessment/Plan 1. Chest pain Patient's troponin has remained relatively flat. She does note improvement in symptoms that initially brought her to the Emergency Department. However, she acknowledges center chest pain this morning, which she did not note previously. She does acknowledge previous cardiac work-up prior to back surgery approximately 15 years ago and denies needed future cardiac follow-up. She denies history of diabetes or smoking. She continues with fatigue. She denies significant family history of coronary artery disease. Her EKG has not revealed any acute ST or T wave changes. Her CTA of the chest showed mild chronic bronchitis and was negative for pulmonary embolism, aneurysm, and dissection. Her blood pressure is improved this morning. She will undergo stress test this morning to further evaluate coronary artery disease component. If this considered to be negative and her echocardiogram is unremarkable, her symptoms may be related to hypertension. She will continue with heparin therapy in the interim. She received aspirin 325 mg p.o. in the Emergency Department. 2. Hypertension Patient's blood pressure is improved this morning. However, it remains elevated. She may require further advancements of her lisinopril, bearing in mind history of chronic kidney disease, and appropriate adjustment with her metoprolol to twice a day. Currently she takes metoprolol 25 mg p.o. daily and is unsure as to why daily versus BID. She will also undergo an echocardiogram to evaluate LV function and structural changes associated with longstanding hypertension. 3. Hyperlipidemia Lipid panel from 09/24/2019 showed cholesterol: 241, HDL: 42, LDL: 182, and triglycerides: 85. She states that she has tried statin medications previously but did not tolerate this due to myalgia. She should be considered for non-statin cholesterol-lowering medication such as Zetia 10 mg p.o. daily. Patient's case will be discussed further with Dr. Wheeler, who will also personally evaluate patient. Thank you for allowing us to participate in the patients plan of care, if you have any questions please do not hesitate to call. This note was generated using a voice recognition system and there may be incorrect words, spelling or punctuation that were not noted when reviewing the office note prior to saving. <Alberto Wheeler - Last Filed: 09/24/19 09:27> Problem List (1) Chest pain Status: Acute Qualifiers: Ischemic chest pain type: unspecified angina pectoris type (2) HTN (hypertension) Status: Chronic Qualifiers: Hypertension type: essential hypertension Qualified Code(s): I10 - Essential (primary) hypertension (3) HLD (hyperlipidemia) Status: Chronic Qualifiers: Hyperlipidemia type: unspecified Qualified Code(s): E78.5 - Hyperlipidemia, unspecified (4) Type II diabetes mellitus, uncontrolled Status: Chronic Reason for Consult History of Present Illness: The patient is a 78 year old F, with above past medical history, hypertension, hypercholesterolemia, diabetes, no previous known coronary artery disease, previous catheterization about 15 years ago at an outside facility where she was told that at that time she discovered she had a hole in her heart. This was under the auspices of back surgery. Apparently she did not require any angioplasty, stenting, or bypass surgery. Patient states that over the last several days she has had both exertional and nonexertional chest pain, and finally took her blood pressure at home where was found to be about 235/115. At the beckoning of her she came to the emergency room where she was evaluated. Patient was ruled out for myocardial infarction EKG was performed showed normal sinus rhythm, no acute changes, no previous myocardial infarction. Echocardiogram and stress test are pending. Patient states that she has not missed any of her antihypertensive medications. [] Objective: Vital Signs Temp Pulse Resp BP Pulse Ox 98.4 F 95 16 156/86 H 96 09/24/19 08:04 09/24/19 08:04 09/24/19 08:04 09/24/19 08:04 09/24/19 08:04 Oxygen Delivery Method Room Air Weight: 146 lb 2.664 oz Body Mass Index (BMI) 26.7 Intake and Output for Last 24 Hours 09/22/19 09/23/19 09/24/19 23:59 23:59 23:59 Intake Total 0 / 0 Balance 0 / 0 09/23/19 20:00: WBC 6.8, RBC 4.81, Hgb 14.3, Hct 44.5, MCV 92.5, MCH 29.7, MCHC 32.1, Plt Count 185, MPV 11.1, Immature Gran % (Auto) 0.100, Neut % (Auto) 44.8 L, Lymph % (Auto) 43.9 H, [place] % (Auto) 8.7, Eos % (Auto) 2.2, Baso % (Auto) 0.3, Absolute Neuts (auto) 3.0, Nucleated RBC % 0 09/23/19 20:00: Sodium 140, Potassium 3.2 L, Chloride 106, Carbon Dioxide 27.0, Anion Gap 7, BUN 14, Creatinine 1.38 H, Est GFR (MDRD) Af Amer 48 L, Est GFR (MDRD) Non-Af 39 L, BUN/Creatinine Ratio 10.1, Glucose 151 H, Calcium 9.4, Troponin I < 0.015 09/24/19 00:45: Troponin I 0.029 09/24/19 03:08: Magnesium 2.1, Troponin I 0.038 09/24/19 03:08: PT 13.4, INR 1.0, APTT 29.0 09/24/19 06:35: Sodium 142, Potassium 3.8, Chloride 109 H, Carbon Dioxide 28.0, Anion Gap 5, BUN 11, Creatinine 1.16 H, Est GFR (MDRD) Af Amer 58 L, Est GFR (MDRD) Non-Af 48 L, BUN/Creatinine Ratio 9.5 L, Glucose 109 H, Calcium 8.6, Troponin I 0.031, Triglycerides 85, Cholesterol 241 H, LDL Cholesterol 182 H, VLDL Cholesterol 17, HDL Cholesterol 42 09/24/19 06:35: Hemoglobin A1c 6.2 09/24/19 06:35: WBC 6.6, RBC 4.56, Hgb 13.5, Hct 42.0, MCV 92.1, MCH 29.6, MCHC 32.1, Plt Count 159, MPV 10.3, Immature Gran % (Auto) 0.300, Neut % (Auto) 62.8, Lymph % (Auto) 26.1, [place] % (Auto) 9.1, Eos % (Auto) 1.5, Baso % (Auto) 0.2, Absolute Neuts (auto) 4.1, Nucleated RBC % 0 Rhythm: EKG: ECHO: Pending Stress Test: Pending Cardiac Cath: PCI: CT Surgery: Holter monitor: EPS: PPM: CXR: Chest CT Scan: Assessment/Plan Interventional cardiology addendum: Patient seen and examined and agree with above findings by Dane pruitt. Patient has been evaluated with an EKG which showed no acute changes, no previous myocardial infarction. Troponins are negative. Patient is currently on a heparin drip. I agree with proceeding with 2D echo with Doppler to evaluate her LV function and pulmonary pressures as well as a noninvasive nuclear stress test to evaluate for possible coronary ischemia. If either 1 of these are grossly abnormal, the patient may require diagnostic coronary angiogram. If her stress test is negative, I would recommend medical management. In addition I would recommend discontinuation of her metoprolol and switch her to Coreg 6.25 mg p.o. twice daily and titrate up from there to a maximum 25 mg p.o. twice daily. In addition I would recommend increasing her lisinopril to 40 mg a day combined with hydrochlorothiazide 12.5 mg daily. Would recommend a follow-up blood pressure in 2 weeks time. If the patient's echo and stress test did not show any overt abnormalities, and that she does not require catheterization, she may be discharged home tomorrow morning after blood pressures been optimized. 2. Hyperlipidemia: Her lipid profile from 09/24/2019 showed an LDL of 182. Recommend starting p.o. twice daily and repeat lipid profile in 6 weeks time. 3. Thank you very much for the opportunity to participate in the cardiac care of your patient. Consultation time took place between 9 AM and 9:30 AM. Code Visit Inpatient E&M: 26661 Init Hosp L2
--- NOTE | 2019-09-24 08:54 | ECHOD_ITS ---
Reason For Study: CHEST PAIN Procedure This was a 2D Doppler, Color Flow transthoracic echocardiogram. Exam performed in department. Left Ventricle Normal size and thickness. The estimated ejection fraction is 65 %. Stage 1 diastolic dysfunction. No regional wall motion abnormalities noted. Right Ventricle Normal size and thickness. Normal systolic function. Atria Normal left atrium. Normal right atrium. Normal atrial septum. Mitral Valve The mitral valve is structurally normal. No prolapse or stenosis seen. Trivial mitral valve insufficiency. Tricuspid Valve Normal tricuspid valve. Trivial tricuspid valve insufficiency. Right ventricular systolic pressure estimated to be 29 mmHg. Aortic Valve Normal aortic valve. Trisinus/trileaflet aortic valve. Pulmonic Valve Normal pulmonic valve. Great Vessels Normal aortic root. Normal arch. Normal inferior vena cava. Inferior vena cava collapse with sniff. Pericardium/Pleural No pericardial effusion. MMode/2D Measurements & Calculations LVIDd: 3.9 cm IVSd: 1.00 cm Ao root diam: 2.3 cm LVIDs: 2.6 cm LVPWd: 1.1 cm RVDd: 2.8 cm FS: 33.3 % LAV(MOD-bp): 35.0 ml LA A4 area: 15.9 cm2 LA dimension(2D): 2.8 cm LAV(MOD-bp) Indexed: 20.9 ml/m2 LAV(MOD-sp2): 25.9 ml LAV(MOD-sp4): 44.4 ml RA A4 area: 9.5 cm2 Time Measurements MV dec time: 0.29 sec Doppler Measurements & Calculations MV E max kevin: 62.1 cm/sec Lat Peak E' Kevin: 6.3 cm/sec Med Peak E' Kevin: 5.2 cm/sec MV A max kevin: 101.5 cm/sec E/E' lat: 9.8 E/E' med: 11.9 MV E/A: 0.61 Ao V2 max: 111.6 cm/sec LV V1 max: 91.9 cm/sec TR max kevin: 234.4 cm/sec Ao max P.0 mmHg LV V1 max P.4 mmHg TR max P.0 mmHg Interpretation Summary The estimated ejection fraction is 65 %. Stage 1 diastolic dysfunction. Trivial mitral valve insufficiency. Trivial tricuspid valve insufficiency. Right ventricular systolic pressure estimated to be 29 mmHg. Compared to echo report dated 12/02/2009, no appreciable changes noted. Ordering Physician: Alberto Wheeler Referring Physician: KAM VALERO Performed By: Merle Holcomb RDCS, RVT
--- NOTE | 2019-09-24 10:11 | STRESSREP ---
Stress Test Report Date: 09-24-2019 Procedure: Pharmacologic stress nuclear imaging study Indications: Chest pain/jaw pain/shoulder pain Consent: Per the patient Procedure: The patient underwent pharmacologic (Regadenoson) evaluation with a peak heart rate of 127 beats per minute (88 %predicted maximal heart rate) and a peak blood pressure of 170/62 mmHg. The baseline ECG demonstrated normal sinus rhythm. The peak pharmacologic ECG demonstrated no obvious ECG changes. There was an isolated premature ectopic complex during infusion. There was no complaint of chest discomfort during pharmacologic infusion or recovery. The examination was discontinued secondary to completion of protocol. Impression: 1. Pharmacologic (Regadenoson) evaluation 2. Peak pharmacologic ECG with no obvious ECG changes. 3. There was an isolated premature ectopic complex during infusion. 4. Nuclear images pending Myocardial perfusion imaging study: Technique: The patient was injected with millicuries of technetium 99m Cardiolite and subsequently rest SPECT Cardiolite nuclear imaging was obtained in the horizontal long, vertical long, and short axis views. The patient underwent pharmacologic (Regadenoson) evaluation with a peak heart rate of 127 beats per minute (88 % percent predicted maximal heart rate) and a peak blood pressure of 170/62 mmHg. The patient was injected with millicuries of technetium 99m Cardiolite and subsequently stress SPECT Cardiolite nuclear imaging was obtained in the horizontal long, vertical long, and short axis views. A gated Cardiolite study at peak stress was obtained. Interpretation: Rest and stress SPECT Cardiolite nuclear imaging status post realignment, normalization, and attenuation correction demonstrate relative uniform tracer uptake and myocardial perfusion appearing within normal limits. There is end systolic thickening and brightening. The gated Cardiolite study demonstrates myocardial thickening and inward wall motion. The reported LVEF is 69 %. Impression: 1. Rest and stress SPECT Cardiolite nuclear imaging demonstrate relative uniform tracer uptake and myocardial perfusion appearing within normal limits. 2. The gated Cardiolite study reports an LVEF of 69 %. This note was generated with [employer] software. It may contain incorrect words, spelling, and punctuation that were not noted in checking the note before signing.
[2019-09-24 11:59] LABS: Partial Thromboplast Time 179.7 Seconds (24.1-36.2)
[2019-09-24] MEDS: Mag Hydrox/Al Hydrox/Simeth 30 ML UDC PO (12:24)
[2019-09-24] MEDS: hydroCHLOROthiazide 12.5mg 12.5 MG PO (12:28)
[2019-09-24] MEDS: Carvedilol 6.25 MG Tablet PO ×2 (12:28→21:55)
[2019-09-24] MEDS: Lisinopril 40 MG Tablet PO (12:29)
--- NOTE | 2019-09-24 13:06 | CASEMGMT ---
LW/POA not on chart. Pt had said when she came in this morning to admitting RN she would bring them in, and that her Dane Martin is healthcare POA. LIAM Fitzgerald
--- NOTE | 2019-09-24 13:30 | PCM.PN.HOSP ---
<Sukhwinder Green - Last Filed: 09/24/19 13:30> Patient Problems: Active and Suspected Problems Chest pain (Acute) Reason for Visit: chest pain Subjective: ongoing chest pain this AM described as 4/10 midsternal aching and stabbing. She did also have SOB with LH yesterday when chest pain occurred. Today she had chest pain and SOB with stress test, however the stress was negative. She denies recent illness/infection. She is resting comfortably in bed NAD. Vitals/I&O's: Vital Signs Temp Pulse Resp BP Pulse Ox 97.3 F L 89 16 141/68 H 97 09/24/19 12:21 09/24/19 12:21 09/24/19 12:21 09/24/19 12:21 09/24/19 12:21 Oxygen Delivery Method Room Air Weight: 146 lb 2.664 oz Body Mass Index (BMI) 26.7 Intake and Output for Last 24 Hours 09/22/19 09/23/19 09/24/19 23:59 23:59 23:59 Intake Total 74.67 / 74.67 Balance 74.67 / 74.67 General: Alert, Oriented x3, Cooperative HEENT: Atraumatic, PERRLA, EOMI, Normocephalic Neck: Supple, No JVD, Negative Carotid Bruits Lungs: Clear to auscultation, Normal air movement Cardiovascular: Regular rate, No murmurs Abdomen: Bowel Sounds Present, Soft, Non Tender Extremities: No edema, Capillary Refill Less than 3 Seconds Skin: No rashes, No breakdown Musculoskeletal: No Tenderness to Palpation of Joints or Extremities Neurological: Cranial nerves II-XII grossly intact Psych/Mental Status: Normal Affect, Appropriate, Alert and oriented to time, place, person, mood and affect Laboratory Results 09/23/19 20:00: WBC 6.8, RBC 4.81, Hgb 14.3, Hct 44.5, MCV 92.5, MCH 29.7, MCHC 32.1, RDW Std Deviation 44.9 H, RDW Coeff of Claude 13.3, Plt Count 185, MPV 11.1, Immature Gran % (Auto) 0.100, Neut % (Auto) 44.8 L, Lymph % (Auto) 43.9 H, Evangeline % (Auto) 8.7, Eos % (Auto) 2.2, Baso % (Auto) 0.3, Absolute Neuts (auto) 3.0, Absolute Lymphs (auto) 2.96, Nucleated RBC % 0 09/23/19 20:00: Sodium 140, Potassium 3.2 L, Chloride 106, Carbon Dioxide 27.0, Anion Gap 7, BUN 14, Creatinine 1.38 H, Estim Creat Clear Calc 27.00, Est GFR (MDRD) Af Amer 48 L, Est GFR (MDRD) Non-Af 39 L, BUN/Creatinine Ratio 10.1, Glucose 151 H, Calcium 9.4, Troponin I < 0.015 09/24/19 00:45: Troponin I 0.029 09/24/19 03:08: Magnesium 2.1, Troponin I 0.038, TSH 3.78 H, Free T4 1.02 09/24/19 03:08: PT 13.4, INR 1.0, APTT 29.0 09/24/19 06:35: Sodium 142, Potassium 3.8, Chloride 109 H, Carbon Dioxide 28.0, Anion Gap 5, BUN 11, Creatinine 1.16 H, Estim Creat Clear Calc 32.12, Est GFR (MDRD) Af Amer 58 L, Est GFR (MDRD) Non-Af 48 L, BUN/Creatinine Ratio 9.5 L, Glucose 109 H, Calcium 8.6, Troponin I 0.031, Triglycerides 85, Cholesterol 241 H, LDL Cholesterol 182 H, VLDL Cholesterol 17, HDL Cholesterol 42 09/24/19 06:35: Hemoglobin A1c 6.2 09/24/19 06:35: WBC 6.6, RBC 4.56, Hgb 13.5, Hct 42.0, MCV 92.1, MCH 29.6, MCHC 32.1, RDW Std Deviation 45.2 H, RDW Coeff of Claude 13.4, Plt Count 159, MPV 10.3, Immature Gran % (Auto) 0.300, Neut % (Auto) 62.8, Lymph % (Auto) 26.1, Evangeline % (Auto) 9.1, Eos % (Auto) 1.5, Baso % (Auto) 0.2, Absolute Neuts (auto) 4.1, Absolute Lymphs (auto) 1.71, Nucleated RBC % 0 09/24/19 11:38: APTT 179.7 H* Current Medications Acetaminophen (Tylenol) 650 mg PO Q4H PRN PRN PRN Reason: Pain Score 1-10/Temp > 100.7 F Al Hydroxide/Mg Hydroxide (Mylanta Ii) 30 ml PO Q6H PRN PRN PRN Reason: Gastric Burning Albuterol Sulfate (Ventolin Aerosols) 2.5 mg INHALATION Q2H PRN PRN PRN Reason: SOB/Wheezing Aspirin ([facility], [facility]) [facility] Last Admin: 09/24/19 06:49 Dose: 81 mg Documented by: Carvedilol (Coreg) 6.25 mg PO BID [facility] Last Admin: 09/24/19 12:28 Dose: 6.25 mg Documented by: Gemfibrozil (Lopid) 600 mg PO BIDAC [facility] Glucagon () 1 mg IM .X1 PRN PRN Reason: Hypoglycemia Guaifenesin (Robitussin) 20 ml PO Q4H PRN PRN PRN Reason: COUGH Hydralazine HCl (Apresoline Iv) 10 mg IV Q4H PRN PRN PRN Reason: SBP > 160 Hydrochlorothiazide () 12.5 mg PO DAILY [facility] Last Admin: 09/24/19 12:28 Dose: 12.5 mg Documented by: Sodium Chloride () 1,000 mls @ 75 mls/hr IV .[id number] [facility] Last Admin: 09/24/19 03:52 Dose: 75 mls/hr Documented by: Dextrose (Dextrose 10%-Water) 250 mls @ 999 mls/hr IV .Q16M PRN; Protocol PRN Reason: HYPOGLYCEMIA Sodium Chloride () 250 mls @ 15 mls/hr IV .[id number] PRN PRN Reason: Saline Flush Sodium Chloride () 250 mls @ 15 mls/hr IV .[id number] PRN PRN Reason: Additional IVPB Infusion Levothyroxine Sodium (Synthroid) 75 mcg PO DAILY@0600 [facility] Last Admin: 09/24/19 06:49 Dose: 75 mcg Documented by: Lisinopril (Zestril) 40 mg PO DAILY [facility] Last Admin: 09/24/19 12:29 Dose: 40 mg Documented by: Melatonin (Melatonin) 3 mg PO QHS PRN PRN PRN Reason: INSOMNIA Morphine Sulfate () 2 mg IV Q3H PRN PRN PRN Reason: Pain Score 6-10/10 Nitroglycerin (Nitrobid) 1 inch TRANSDERM. Q6 JOSE L Last Admin: 09/24/19 12:29 Dose: Not Given Documented by: Ondansetron HCl (Zofran) 4 mg IV Q8H PRN PRN PRN Reason: NAUSEA/VOMITING Oxycodone HCl (Oxyir) 5 mg PO Q4H PRN PRN PRN Reason: Pain Score 4-5/10 Prochlorperazine Edisylate (Compazine Iv) 5 mg IV Q4H PRN PRN PRN Reason: Breakthrough Nausea/Vomiting Psyllium Hydrophilic Mucilloid (Metamucil) 1 packet PO DAILY PRN PRN PRN Reason: Constipation Sodium Chloride () 10 - 40 ml IV UD PRN PRN Reason: SALINE FLUSH Throat Lozenges (Cepacol Sore Throat Lozenge) 1 lozenge MUCOUS MEM Q2H PRN PRN PRN Reason: Sore Throat/Cough STROKE Vital Signs/Narrative: Vital Signs Temp Pulse Resp BP Pulse Ox 09/24/19 12:21 97.3 F L 89 16 141/68 H 97 Medical Necessity - Tobacco Use Smoking Status: Never smoker Tobacco Use: Non-smoker Assessment/Plan All Active Problems Chest pain (Acute) 1. Chest pain - suspect 2/2 uncontrolled HTN. Cardiology is following and medication changes have been made. Stress test negative. Echo with EF65%, St1 diastolic dysfunction. RVSP 29mmHg. CXR mild hyperinflation. CTA chest negative. DC heparin. Trial GI cocktail. 2. HLD - cardiology started gemfibrozil as she has myalgias from statins. 3. hypothyroid - synthroid. tsh mildly elevated but ft4 normal. 4. gout - uloric DVT ppx: dc heparin drip. SCDs tonight DC planning: monitor on tele overnight, trend BP This patient was seen by Sukhwinder Grene PA-C under the supervision of Doctor Lakshmi. <Aleksandar Martins E - Last Filed: 09/24/19 13:58> Vitals/I&O's: Vital Signs Temp Pulse Resp BP Pulse Ox 97.3 F L 89 16 141/68 H 97 09/24/19 12:21 09/24/19 12:21 09/24/19 12:21 09/24/19 12:21 09/24/19 12:21 Oxygen Delivery Method Room Air Weight: 146 lb 2.664 oz Body Mass Index (BMI) 26.7 Intake and Output for Last 24 Hours 09/22/19 09/23/19 09/24/19 23:59 23:59 23:59 Intake Total 74.67 / 74.67 Balance 74.67 / 74.67 Laboratory Results 09/23/19 20:00: WBC 6.8, RBC 4.81, Hgb 14.3, Hct 44.5, MCV 92.5, MCH 29.7, MCHC 32.1, RDW Std Deviation 44.9 H, RDW Coeff of Claude 13.3, Plt Count 185, MPV 11.1, Immature Gran % (Auto) 0.100, Neut % (Auto) 44.8 L, Lymph % (Auto) 43.9 H, Evangeline % (Auto) 8.7, Eos % (Auto) 2.2, Baso % (Auto) 0.3, Absolute Neuts (auto) 3.0, Absolute Lymphs (auto) 2.96, Nucleated RBC % 0 09/23/19 20:00: Sodium 140, Potassium 3.2 L, Chloride 106, Carbon Dioxide 27.0, Anion Gap 7, BUN 14, Creatinine 1.38 H, Estim Creat Clear Calc 27.00, Est GFR (MDRD) Af Amer 48 L, Est GFR (MDRD) Non-Af 39 L, BUN/Creatinine Ratio 10.1, Glucose 151 H, Calcium 9.4, Troponin I < 0.015 09/24/19 00:45: Troponin I 0.029 09/24/19 03:08: Magnesium 2.1, Troponin I 0.038, TSH 3.78 H, Free T4 1.02 09/24/19 03:08: PT 13.4, INR 1.0, APTT 29.0 09/24/19 06:35: Sodium 142, Potassium 3.8, Chloride 109 H, Carbon Dioxide 28.0, Anion Gap 5, BUN 11, Creatinine 1.16 H, Estim Creat Clear Calc 32.12, Est GFR (MDRD) Af Amer 58 L, Est GFR (MDRD) Non-Af 48 L, BUN/Creatinine Ratio 9.5 L, Glucose 109 H, Calcium 8.6, Troponin I 0.031, Triglycerides 85, Cholesterol 241 H, LDL Cholesterol 182 H, VLDL Cholesterol 17, HDL Cholesterol 42 09/24/19 06:35: Hemoglobin A1c 6.2 09/24/19 06:35: WBC 6.6, RBC 4.56, Hgb 13.5, Hct 42.0, MCV 92.1, MCH 29.6, MCHC 32.1, RDW Std Deviation 45.2 H, RDW Coeff of Claude 13.4, Plt Count 159, MPV 10.3, Immature Gran % (Auto) 0.300, Neut % (Auto) 62.8, Lymph % (Auto) 26.1, Evangeline % (Auto) 9.1, Eos % (Auto) 1.5, Baso % (Auto) 0.2, Absolute Neuts (auto) 4.1, Absolute Lymphs (auto) 1.71, Nucleated RBC % 0 09/24/19 11:38: APTT 179.7 H* Current Medications Acetaminophen (Tylenol) 650 mg PO Q4H PRN PRN PRN Reason: Pain Score 1-10/Temp > 100.7 F Al Hydroxide/Mg Hydroxide (Mylanta Ii) 30 ml PO Q6H PRN PRN PRN Reason: Gastric Burning Albuterol Sulfate (Ventolin Aerosols) 2.5 mg INHALATION Q2H PRN PRN PRN Reason: SOB/Wheezing Aspirin [facility], Baby) [facility] Last Admin: 09/24/19 06:49 Dose: 81 mg Documented by: Carvedilol (Coreg) 6.25 mg PO BID [facility] Last Admin: 09/24/19 12:28 Dose: 6.25 mg Documented by: Gemfibrozil (Lopid) 600 mg PO BIDAC [facility] Glucagon () 1 mg IM .X1 PRN PRN Reason: Hypoglycemia Guaifenesin (Robitussin) 20 ml PO Q4H PRN PRN PRN Reason: COUGH Hydralazine HCl (Apresoline Iv) 10 mg IV Q4H PRN PRN PRN Reason: SBP > 160 Hydrochlorothiazide () 12.5 mg PO DAILY [facility] Last Admin: 09/24/19 12:28 Dose: 12.5 mg Documented by: Sodium Chloride () 1,000 mls @ 75 mls/hr IV .[id number] [facility] Last Admin: 09/24/19 03:52 Dose: 75 mls/hr Documented by: Dextrose (Dextrose 10%-Water) 250 mls @ 999 mls/hr IV .Q16M PRN; Protocol PRN Reason: HYPOGLYCEMIA Sodium Chloride () 250 mls @ 15 mls/hr IV .[id number] PRN PRN Reason: Saline Flush Sodium Chloride () 250 mls @ 15 mls/hr IV .[id number] PRN PRN Reason: Additional IVPB Infusion Levothyroxine Sodium (Synthroid) 75 mcg PO DAILY@0600 [facility] Last Admin: 09/24/19 06:49 Dose: 75 mcg Documented by: Lisinopril (Zestril) 40 mg PO DAILY [facility] Last Admin: 09/24/19 12:29 Dose: 40 mg Documented by: Melatonin (Melatonin) 3 mg PO QHS PRN PRN PRN Reason: INSOMNIA Nitroglycerin (Nitrobid) 1 inch TRANSDERM. Q6 [facility] Last Admin: 09/24/19 12:29 Dose: Not Given Documented by: Ondansetron HCl (Zofran) 4 mg IV Q8H PRN PRN PRN Reason: NAUSEA/VOMITING Oxycodone HCl (Oxyir) 5 mg PO Q4H PRN PRN PRN Reason: Pain Score 4-5/10 Prochlorperazine Edisylate (Compazine Iv) 5 mg IV Q4H PRN PRN PRN Reason: Breakthrough Nausea/Vomiting Psyllium Hydrophilic Mucilloid (Metamucil) 1 packet PO DAILY PRN PRN PRN Reason: Constipation Sodium Chloride () 10 - 40 ml IV UD PRN PRN Reason: SALINE FLUSH Throat Lozenges (Cepacol Sore Throat Lozenge) 1 lozenge MUCOUS MEM Q2H PRN PRN PRN Reason: Sore Throat/Cough STROKE Vital Signs/Narrative: Vital Signs Temp Pulse Resp BP Pulse Ox 09/24/19 12:21 97.3 F L 89 16 141/68 H 97 Assessment/Plan Hospitalist note: I am seeing this patient in conjunction with Sukhwinder Green. I independently seen and examined the patient. Progress note above, laboratory data and imaging studies reviewed and I concur with the above treatment and work-up plan. Patient still complaining of chest pain, retrosternal, constant, no associated symptoms. Blood pressure improved, it was very high upon admission. Other vital signs are stable. EKG revealed no acute hemic changes. Patient mentioned that she had a history of GERD. - Physical Exam General: Alert, Oriented x3, Cooperative, No apparent distress. HEENT: Atraumatic, PERRLA, EOMI. Neck: Supple, No JVD, Negative Carotid Bruits, Trachea Midline, Thyroid Normal. Lungs: Clear to auscultation, Normal air movement, No rhonchi, No wheeze, No rales. Cardiovascular: Regular rate, Regular Rhythm, Normal S1, Normal S2, PMI Normal. Abdomen: Bowel Sounds Present, Soft, Non Tender, Non-Distended, No Hepato-splenomegaly. Extremities: No clubbing, No cyanosis, No edema Skin: No rashes, No breakdown Neurological: Cranial nerves are intact, neuro grossly intact. Assessment and plan: #1 chest pain: Probably due to uncontrolled hypertension versus GERD. EKG without acute chronic changes. Troponin was negative. Stress test reported as negative without evidence of stress-induced myocardial ischemia. ACS ruled out. CTA chest showed no evidence of PE or dissection. Will give her a trial of GI cocktail and Mylanta as needed. #2 hypertensive urgency: Upon arrival to ED, blood pressure was 218/102. Today, it is improving, systolic down to 150. She is on Coreg, lisinopril increased to 40 mg p.o. daily and started on HCTZ. She is on IV hydralazine PRN. Plan to monitor blood pressure, adjust medication as needed, possible DC home tomorrow. #3 other chronic medical problems: Stable, continue current medications as above. This note was generated with [employer] software. It may contain incorrect words, spelling, and punctuation that were not noted in checking the note before signing. Code Visit OBSV E&M: 83842 Subsequent observation care L2
[2019-09-24] MEDS: Gemfibrozil 600 MG Tablet PO (18:03)
[2019-09-24] MEDS: Acetaminophen 325 MG Tablet 650 MG PO (22:00)
[2019-09-25 03:04] VITALS: PULSE 78
[2019-09-25 03:57] VITALS: BP 126/64; PULSE 92; RESP 14; TEMP 37.5; O2SAT 95
[2019-09-25] MEDS: 0.9% Normal Saline 1,000 ML 75 ML IV (04:07)
[2019-09-25] MEDS: Levothyroxine 75 MCG Tablet PO (06:48)
[2019-09-25] MEDS: Gemfibrozil 600 MG Tablet PO (06:48)
[2019-09-25 07:02] VITALS: PULSE 87
[2019-09-25 08:00] VITALS: O2SAT 92
--- NOTE | 2019-09-25 08:39 | PCM.PN.CARD ---
Subjectve: Patient doing very well, no 24-hour events. Blood pressure is much better controlled today. Telemetry negative. Stress test yesterday negative. Objective: Vital Signs Temp Pulse Resp BP Pulse Ox 99.5 F H 87 14 126/64 H 92 09/25/19 03:57 09/25/19 07:02 09/25/19 03:57 09/25/19 03:57 09/25/19 08:00 Oxygen Delivery Method Room Air Weight: 146 lb 2.664 oz Body Mass Index (BMI) 26.7 Intake and Output for Last 24 Hours 09/23/19 09/24/19 09/25/19 23:59 23:59 23:59 Intake Total 1392.17 / 1392.17 1170 / 1170 Balance 1392.17 / 1392.17 1170 / 1170 General: Awake, Alert, Oriented x 3 HEENT: PERRL, EOMI, Sclera Non Icteric Neck: Supple, Good ROM, No Lymph Node Enlargement Lungs: Clear to auscultation Cardiovascular: Regular Rhythm, Normal S1, Normal S2, No Murmurs, No Rubs, No Gallops Vascular: No Carotid Bruits, Normal Femoral Pulses, Normal Radial Pulses, Normal Dorsalis Pedal Pulse, Normal Posterior Tibial Pulses Abdomen: Bowel Sounds Present, Soft, Non Tender, No HSM, No Organomegaly Extremities: No Cyanosis, No Clubbing, No edema Neurological: No Focal Motor or Sensory Deficit 09/24/19 11:38: APTT 179.7 H* Rhythm: EKG: ECHO:The estimated ejection fraction is 65 %. Stage 1 diastolic dysfunction. Trivial mitral valve insufficiency. Trivial tricuspid valve insufficiency. Right ventricular systolic pressure estimated to be 29 mmHg. Compared to echo report dated 12/02/2009, no appreciable changes noted. Stress Test: Cardiac Cath: PCI: CT Surgery: Holter monitor: EPS: PPM: CXR: Chest CT Scan: Medical Necessity - Tobacco Use Smoking Status: Never smoker Tobacco Use: Non-smoker Assessment/Plan 1. Hypertension: The patient's blood pressure is much better controlled on her antihypertensive therapy as outlined in the [facility]. Her echocardiogram showed normal LV size and function with an RVSP of 29 mmHg. Her stress test is negative for inducible ischemia. Would not recommend catheterization at this time. In addition I would recommend discontinuation of her metoprolol and switch her to Coreg 6.25 mg p.o. twice daily and titrate up from there to a maximum 25 mg p.o. twice daily. In addition I would recommend increasing her lisinopril to 40 mg a day combined with hydrochlorothiazide 12.5 mg daily. Would recommend a follow-up blood pressure in 2 weeks time. 2. Hyperlipidemia: Her lipid profile from 09/24/2019 showed an LDL of 182. Recommend starting gemfibrozil p.o. twice daily and repeat lipid profile in 6 weeks time. 3. Thank you very much for the opportunity to participate in the cardiac care of your patient. Patient may be discharged home. Code Visit Inpatient E&M: 59590 Subs Hosp L2
[2019-09-25 09:29] VITALS: BP 157/71; PULSE 89; RESP 16; TEMP 37.3; O2SAT 95
[2019-09-25] MEDS: Carvedilol 6.25 MG Tablet PO (09:33)
[2019-09-25] MEDS: Aspirin 81 MG TAB.CHEW PO (09:33)
[2019-09-25] MEDS: hydroCHLOROthiazide 12.5mg 12.5 MG PO (09:33)
[2019-09-25] MEDS: Lisinopril 40 MG Tablet PO (09:33)
[2019-09-25 13:51] VITALS: BP 122/62; PULSE 78; RESP 16; TEMP 37.3; O2SAT 95
--- NOTE | 2019-09-25 14:27 | PCM.DC ---
- Discharge Diagnoses Current Active Problems: Current Active and Chronic Problems Chest pain (Acute) History of throat cancer (Chronic) You will use the following diet at home:: No restrictions Your food should be the consistency of: Regular Your liquids should be the consistency of: Regular/Thin Discharge Activity: Return to Normal Activity Weight Bearing Status: Full weight bearing Allergies/Adverse Reactions: Allergies No Known Allergies Allergy (Verified 09/23/19 19:58) Medications to take at Discharge Levothyroxine [Synthroid] 75 mcg PO DAILY 03/19/18 Carvedilol [Coreg (Beta Mathew)] 6.25 mg PO BID #60 tab 09/25/19 Gemfibrozil [Lopid] 600 mg PO BIDAC #60 tab 09/25/19 Lisinopril [Zestril] 40 mg PO DAILY #30 tab 09/25/19 hydroCHLOROthiazide [Hydrochlorothiazide] 12.5 mg PO DAILY #30 cap 09/25/19 The following prescriptions were given: Carvedilol [Coreg (Beta Mathew)] 6.25 mg PO BID #60 tab Transmission Status: Pending to [facility]/pharmacy #[id number] hydroCHLOROthiazide [Hydrochlorothiazide] 12.5 mg PO DAILY #30 cap Transmission Status: Pending to [facility]/pharmacy #[id number] Gemfibrozil [Lopid] 600 mg PO BIDAC #60 tab Transmission Status: Pending to [facility]/pharmacy #[id number] Lisinopril [Zestril] 40 mg PO DAILY #30 tab Transmission Status: Pending to [facility]/pharmacy #[id number] Primary Care Physician: Andrés Sagastume MD [Primary Care Provider] - Please follow up with your Primary Care Physician in: next appointment Test Results: Test results from this visit will be discussed in further detail at your follow-up appointment, if applicable. Please Follow Up With: Dane Chairez NP-C
--- NOTE | 2019-09-28 09:06 | PCM.DC.SUM ---
Discharge Date and Diagnosis Date of Admission: 09/23/19 Date of Discharge: 09/25/19 - Primary Discharge Diagnosis #1 chest pain-musculoskeletal in nature #2 uncontrolled hypertension #3 hyperlipidemia #4 hypokalemia #5 chronic kidney disease stage III - Secondary Discharge Diagnosis Chronic Problems History of throat cancer (Chronic) History of chest pain (Chronic) Osteoporosis (Chronic) Lumbago (Chronic) Hypothyroidism (Chronic) HTN (hypertension) (Chronic) HLD (hyperlipidemia) (Chronic) GERD (gastroesophageal reflux disease) (Chronic) Type II diabetes mellitus, uncontrolled (Chronic) Hospital Course and Treatment Operations: None Procedures: 2-D Echocardiogram, Stress test Summary of Care Provided: The patient is a 78 year old F emergency room at [facility] with a chief complaint of left shoulder pain radiating into her left arm and left side of her jaw. Admitting physician also stated the patient had chest pain. Work-up in the emergency room revealed the patient to be hypertensive with a blood pressure of 218/102, potassium was low at 3.2, troponin was unremarkable. EKG showed a sinus tachycardia with no evidence of ischemia, chest x-ray showed no acute finding. Patient was placed in observation status on Medrg 3, she underwent an echocardiogram which was unremarkable, serial cardiac isoenzymes were unremarkable, and her blood pressure medications were adjusted. Patient underwent a nuclear stress test which was negative for reversible ischemia. On 09/25/2019, patient was seen and examined: On examination she appeared in good health and spirits. Vital signs as documented. Skin warm and dry and without overt rashes. Neck without JVD. Lungs clear. Heart exam notable for regular rhythm, normal sounds and absence of murmurs, rubs or gallops. Abdomen unremarkable and without evidence of organomegaly, masses, or abdominal aortic enlargement. Extremities nonedematous. Neuro: Cranial nerves II through XII are grossly intact, no focal motor deficits were noted, sensation to light touch and pinprick is intact. Psych: Patient is alert and oriented x3, she does not appear anxious or depressed On 09/25/2019, patient was seen and examined and felt to be in stable condition for discharge home - Physical Exam Vitals/I&O's: Vital Signs Temp Pulse Resp BP Pulse Ox 99.2 F H 78 16 122/62 H 95 09/25/19 13:51 09/25/19 13:51 09/25/19 13:51 09/25/19 13:51 09/25/19 13:51 Oxygen Delivery Method Room Air Weight: 66.3 kg Body Mass Index (BMI) 26.7 Discharge Activity: Return to Normal Activity Weight Bearing Status: Full weight bearing Home Medications: Medications to take at Discharge Levothyroxine [Synthroid] 75 mcg PO DAILY 03/19/18 Carvedilol [Coreg (Beta Mathew)] 6.25 mg PO BID #60 tab 09/25/19 Gemfibrozil [Lopid] 600 mg PO BIDAC #60 tab 09/25/19 Lisinopril [Zestril] 40 mg PO DAILY #30 tab 09/25/19 hydroCHLOROthiazide [Hydrochlorothiazide] 12.5 mg PO DAILY #30 cap 09/25/19 Following Prescrptions Were Given to Patient: Carvedilol [Coreg (Beta Mathew)] 6.25 mg PO BID #60 tab Transmission Status: Received by [facility]/pharmacy #[id number] hydroCHLOROthiazide [Hydrochlorothiazide] 12.5 mg PO DAILY #30 cap Transmission Status: Received by [facility]/pharmacy #[id number] Gemfibrozil [Lopid] 600 mg PO BIDAC #60 tab Transmission Status: Received by [facility]/pharmacy #[id number] Lisinopril [Zestril] 40 mg PO DAILY #30 tab Transmission Status: Received by [facility]/pharmacy #[id number] Primary Care Physician: Andrés Sagastume MD [Primary Care Provider] - Please follow up with your Primary Care Physician in: next appointment Please Follow Up With: Dane Chairez, FELTMAKER[employer]C Disposition: Home Minutes spent on discharge:: 30 Patient Condition:: Stable Medical Necessity - Tobacco Use Smoking Status: Never smoker Tobacco Use: Non-smoker Meaningful Use Info Meaningful Use Diagnoses (Choose all that apply): None applicable Code Visit OBSV E&M: 19217 Observation care discharge
== END 2019-09-25 14:28 | disposition home or self-care (01) ==
LOC: ED 20:23 → PCU 23:17
PROVIDERS: Admitting Provider Family Medicine; Emergency Provider Emergency Medicine; Family Provider Family Medicine; PCP Family Medicine; Visit Provider Internal Medicine
DX: R07.89 Other chest pain (principal); I16.0 Hypertensive urgency; Z23 Encounter for immunization; E78.5 Hyperlipidemia, unspecified; I12.9 Hypertensive chronic kidney disease with stage 1 through stage 4 chronic kidney disease, or unspecified chronic kidney disease; N18.3 Chronic kidney disease, stage 3 (moderate); M10.9 Gout, unspecified; E87.6 Hypokalemia; M25.512 Pain in left shoulder; R20.2 Paresthesia of skin; E11.22 Type 2 diabetes mellitus with diabetic chronic kidney disease; E11.65 Type 2 diabetes mellitus with hyperglycemia; R00.0 Tachycardia, unspecified; R68.84 Jaw pain; K21.9 Gastro-esophageal reflux disease without esophagitis; E03.9 Hypothyroidism, unspecified; Z79.899 Other long term (current) drug therapy; Z79.82 Long term (current) use of aspirin; Z85.819 Personal history of malignant neoplasm of unspecified site of lip, oral cavity, and pharynx
CPT/HCPCS: 36415; 71045; 71275; 78452; 80048; 80061; 83036; 83735; 84439; 84443; 84484; 85025; 85610; 85730; 93005; 93017; 93306; 96361; 96365; 96366; 96375; 96376; 99218; 99251; 99285; A9500; G0008; J7030; Q9967; 90686; A4216; G0378; G0463; J2405; J2785

== ENCOUNTER → 2019-10-03 11:09 | Outpatient (CLI) | payer MEDICARE, OTHER, SELFPAY ==
[2019-09-24 03:04] VITALS: BMI 26.7
[2019-10-03 11:54] LABS: AST(SGOT) 18 U/L (15-37); Alanine Aminotransfer ALT/SGPT 22 U/L (13-56); Albumin, Serum 3.6 g/dL (3.2-5.0); Alkaline Phosphatase 64 U/L (45-117); Amylase 117 U/L (25-115); Bilirubin, Direct 0.16 mg/dL (0.00-0.30); Globulin 4.1 g/dL (2.2-4.2); Lipase 911 U/L (73-393); Protein, Total 7.7 g/dL (6.4-8.2)
== END ==
PROVIDERS: PCP Family Medicine; Referring Provider Nurse Practitioner Family; Visit Provider Nurse Practitioner Family
DX: K80.50 Calculus of bile duct without cholangitis or cholecystitis without obstruction (principal); R19.5 Other fecal abnormalities; R14.2 Eructation; R11.0 Nausea; M25.512 Pain in left shoulder
CPT/HCPCS: 36415; 80076; 82150; 83690

== ENCOUNTER 2019-10-03 12:37 | Observation (INO) | payer MEDICARE, OTHER, SELFPAY ==
[2019-09-24 03:04] VITALS: BMI 26.7
[2019-10-03 12:38] VITALS: BP 171/90; PULSE 78; RESP 18; TEMP 36.6; O2SAT 100; BMI 26.2
--- NOTE | 2019-10-03 13:40 | US_ITS ---
STUDY: ABDOMINAL ULTRASOUND - RIGHT UPPER QUADRANT REASON FOR VISIT: Female, 78 years old ELEVATED LIPASE TECHNIQUE: Ultrasound evaluation of the right upper quadrant was performed with real-time and static cifuentes-scale imaging. TECHNICAL QUALITY: Limited. Examination limited by bowel gas. COMPARISON: None. FINDINGS: Liver: The liver measures 13.2 cm. There is normal echogenicity of the liver. The bile ducts are within normal limits. There is hepatic color flow. The direction of portal flow is hepatopetal. There is no demonstrated mass lesion. Gallbladder: The patient is status post cholecystectomy. Common Bile Duct (C.B.D.): The common bile duct measures 5.4 mm. Pancreas: Normal size of the head, body and tail of the pancreas. There is increased echogenicity of the pancreas. There is no demonstrated pancreatic mass or cyst. Right Kidney: Normal size of the right kidney. The right kidney measures 9.2 cm x 5.4 cm x 4.3 cm. Normal renal cortex. The right cortex measures 1.2 cm. There is no demonstrated renal mass or cyst. There is no right hydronephrosis. US/Abdomen Limited IMPRESSION: Normal right upper quadrant ultrasound examination. Electronically Signed: Franco Garcia, at 15:42 EST , Service support ,
--- NOTE | 2019-10-03 13:41 | ED.VIS.GEN ---
History of Present Illness Chief Complaint: Abn Labs Informant: Patient Narrative: Patient has not felt well for the past week and a half or so. She was admitted to the hospital last week with significantly elevated blood pressure and chest pain. Blood pressure medications were adjusted. She states since discharge in the hospital she has had episodes of lightheadedness. This morning her blood pressure was low at 106/64. Patient states she continues to have upper abdominal pain with some intermittent nausea. She called her cardiology office this morning because she was feeling lightheaded and her blood pressure was so much lower than it had been. In talking with the nurse there patient believes the nurse felt she may be having trouble with her gallbladder. Nurse practitioner from the cardiology office ordered the patient to have liver function test and lipase. Lipase returns elevated at 911. Primary care physician gets these lab results and send the patient to the emergency room. Patient reports having a prior cholecystectomy. - Past Medical History (1) GERD (gastroesophageal reflux disease) Status: Chronic (2) HLD (hyperlipidemia) Status: Chronic (3) History of throat cancer Status: Chronic (4) Hypothyroidism Status: Chronic (5) Lumbago Status: Chronic (6) Osteoporosis Status: Chronic (7) Type II diabetes mellitus, uncontrolled Status: Chronic Past Medical History - Allergies and Home Meds Allergies/Adverse Reactions: Allergies No Known Allergies Allergy (Verified 10/03/19 12:40) Primary Care Physician: Andrés Sagastume MD [Primary Care Provider] - Prior records reviewed: Yes Surgical History: cholecystectomy, - - Cataract surgery, lumbar back surgery with hardware, cholecystectomy. Lives: Spouse/ Significant Other Smoking Status: Never smoker Alcohol: None - Family History Maternal Family History: Reports: Hypertension Paternal Family History: Reports: Heart Disease, Hypertension Review of Systems General: Denies: Chills, Fever Eyes: Denies: Visual changes - bilaterally ENT: Denies: Bilateral ear pain Cardiovascular: Reports: Chest pain - Pain radiates to left shoulder and chest. Respiratory: Denies: Dyspnea, Cough Gastrointestinal: Reports: Abdominal pain, Nausea. Denies: Vomiting Musculoskeletal: Reports: Back pain. Denies: Extremity Pain Skin: Denies: Rash Neurological: Denies: Headache Allergy: Denies: Uticaria Physical Exam Vital Signs/Narrative: Vital Signs Temp Pulse Resp BP Pulse Ox 10/03/19 12:38 98 F 78 18 171/90 H 100 Inital Vital Signs reviewed: Yes General: Well nourished, Well developed Head: Normocephalic ENT: Moist mucous membranes Neck: Supple Cardiovascular: Regular rate, Regular rhythm Respiratory: No distress, CTA bilaterally Abdomen: Soft, Tender - Tenderness in the epigastrium., Hypoactive bowel sounds. Negative for: Guarding, Rebound tenderness Extremities: Nontender Skin: Normal color Neurological: Alert, Oriented x3 Psychological: Normal affect Diagnostic/Tx/Re-eval Impressions Abdomen Ultrasound 10/03/19 13:40 IMPRESSION: Normal right upper quadrant ultrasound examination. Electronically Signed: Franco Garcia, at 15:42 EST , Service support , 10/03/19 13:40 US Abd [Abdomen Limited] [US] Stat Laboratory Results 10/03/19 10/03/19 14:00 14:00 WBC 4.6 RBC 4.42 Hgb 13.3 Hct 40.8 MCV 92.3 MCH 30.1 MCHC 32.6 RDW Std Deviation 46.5 H RDW Coeff of Claude 13.5 Plt Count 185 MPV 10.8 Immature Gran % (Auto) 0.400 Neut % (Auto) 55.9 Lymph % (Auto) 31.2 [place] % (Auto) 10.3 H Eos % (Auto) 2.0 Baso % (Auto) 0.2 Absolute Neuts (auto) 2.6 Absolute Lymphs (auto) 1.43 Nucleated RBC % 0 Sodium 139 Potassium 4.2 Chloride 105 Carbon Dioxide 27.0 Anion Gap 7 BUN 26 H Creatinine 1.75 H Estim Creat Clear Calc 21.29 Est GFR (MDRD) Af Amer 36 L Est GFR (MDRD) Non-Af 30 L BUN/Creatinine Ratio 14.9 Glucose 90 Calcium 9.3 - Medical Decision Making Patient declined pain or nausea medication. CBC and chemistry studies today are unremarkable. Ultrasound of the pancreas is unremarkable. Patient does not have her gallbladder and she does not drink alcohol. I reviewed her medication list and do not see that on her current list that would typically trigger pancreatitis. I will speak with hospitalist regarding admission for further treatment. ED Disposition - Plan for ED Patient: Disposition: Acute Care Hospital [facility] Diagnosis: Pancreatitis Referrals: Andrés Sagastume MD [Primary Care Provider] -
[2019-10-03 14:09] LABS: Absolute Lymphocyte Count 1.43 X10^3/uL (0.83-4.51); Absolute Neutrophil Count 2.6 X10^3/uL (2.0-7.7); Basophil# 0.01 X10^3/uL; Basophil% 0.2 % (0-1); Eosinophil# 0.09 X10^3/uL; Hematocrit 40.8 % (37-47); Hemoglobin 13.3 g/dL (12.0-15.0); Lymphocyte # 1.43 X10^3/ul (4.0); Lymphocyte % 31.2 % (19-41); Mean Corp Hgb Conc 32.6 g/dL (32-36); Mean Corpuscular Hgb 30.1 pg (27.0-32.0); Mean Corpuscular Volume 92.3 fL (81-99); Mean Platelet Vol. 10.8 fl (6.2-12.0); Monocyte# 0.47 X10^3/uL; Monocyte% 10.3 % (0-10); NRBC Flagged by Analyzer 0 % (0-5); Neutrophil # 2.56 X10^3/uL (2.7-7.7); Neutrophil % 55.9 % (47-70); Platelet Count 185 K/mm3 (150-450); RBC Distribution Width CV 13.5 % (11.6-14.6); RBC Distribution Width SD 46.5 fl (35.1-43.9); Red Blood Count 4.42 M/mm3 (4.2-5.4); White Blood Count 4.6 K/mm3 (4.4-11.0)
[2019-10-03] MEDS: 0.9% Normal Saline 1,000 ML 150 ML IV (14:15)
[2019-10-03 14:17] LABS: Anion Gap 7 (5-15); BUN 26 mg/dL (7-18); BUN/Creat Ratio 14.9 RATIO (10-20); Calcium,Total 9.3 mg/dL (8.5-10.1); Chloride 105 mmol/L (98-107); Creatinine, Serum 1.75 mg/dL (0.55-1.02); EST Glomerular Filtration Rate 30 mL/min (>60); Est Glom Filt Rate - Afr Amer 36 mL/min (>60); Estimated Creatinine Clearance 21.29 ml/min; Glucose 90 mg/dL (74-106); Potassium 4.2 mmol/L (3.5-5.1); Sodium Level 139 mmol/L (136-145)
--- NOTE | 2019-10-03 16:21 | PCM.HP.STD ---
Problem List (1) DAGO (acute kidney injury) Status: Acute (2) Medication reaction Status: Acute (3) Hypothyroidism Status: Chronic Qualifiers: Hypothyroidism type: unspecified Qualified Code(s): E03.9 - Hypothyroidism, unspecified (4) HTN (hypertension) Status: Chronic Qualifiers: Hypertension type: essential hypertension Qualified Code(s): I10 - Essential (primary) hypertension (5) HLD (hyperlipidemia) Status: Chronic Qualifiers: Hyperlipidemia type: unspecified Qualified Code(s): E78.5 - Hyperlipidemia, unspecified (6) GERD (gastroesophageal reflux disease) Status: Chronic Qualifiers: Esophagitis presence: esophagitis presence not specified Qualified Code(s): K21.9 - Gastro-esophageal reflux disease without esophagitis (7) Type II diabetes mellitus, uncontrolled Status: Chronic History of Present Illness Date of Admission: 10/03/19 Chief Complaint: abnormal labs The patient is a 78 year old F with pmhx of HTN, HLD, CKDIII, who presents to the ER with abnormal labs. She went to go see her granulating blender today because she checked her Blood pressure this morning and it was 104/60 which she thought was too low. The granulating blender had lipase and CMP drawn and she was found to have mildly elevated Lipase, BUN, and Creatinine. This past week she has had increased nausea without vomiting, diarrhea, and some mid abdominal discomfort when having diarrhea. About a week prior she started taking lopid, HCTZ, and coreg. She has no hx of pancreatitis. She does not have a gall bladder. She does not drink any alcohol. She does not take statins. [] Past Medical History Past Medical History (Chronic Problems): Chronic Problems (Last Updated 10/03/19 @ 10:47 by Anitha Jones) History of throat cancer (Chronic) History of chest pain (Chronic) Osteoporosis (Chronic) Lumbago (Chronic) Hypothyroidism (Chronic) HTN (hypertension) (Chronic) HLD (hyperlipidemia) (Chronic) GERD (gastroesophageal reflux disease) (Chronic) Type II diabetes mellitus, uncontrolled (Chronic) Medical History: Medical History (Last Updated 10/03/19 @ 10:47 by Anitha Jones) Stool color abnormal (Acute) R19.5 Belching (Acute) R14.2 Nausea (Acute) R11.0 Left shoulder pain (Acute) M25.512 Biliary colic symptom (Acute) K80.50 Chest pain (Acute) R07.9 Allergies No Known Allergies Allergy (Verified 10/03/19 12:40) Home Medications: Ambulatory Orders Medication Instructions Recorded Levothyroxine [Synthroid] 75 mcg PO DAILY 03/19/18 Carvedilol [Coreg (Beta Mathew)] 6.25 mg PO BID 10/03/19 Gemfibrozil [Lopid] 600 mg PO BIDAC 10/03/19 Lisinopril [Zestril] 40 mg PO DAILY 10/03/19 hydroCHLOROthiazide 12.5 mg PO DAILY 10/03/19 [Hydrochlorothiazide] Surgical History: cholecystectomy, - - Cataract surgery, lumbar back surgery with hardware, cholecystectomy. 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 Denies: Vomiting Genitourinary: Denies: Dysuria Musculoskeletal: Denies: Joint Pain, Joint Tenderness Skin: Denies: Rash, Wounds Neurological: Denies: Numbness, Tingling, Focal weakness Psychiatric: Denies: Anxiety, Depression, Homicidal Ideations, Suicidal Ideations Hematologic/ Lymphatic: Denies: Easy Bruising, Easy Bleeding VTE Information - Inpt Only VTE Present on Admission: No VTE Mechan Device Prophylaxis: None VTE Pharm Prophylaxis ordered?: Yes Patient Problems: Active and Suspected Problems (Last Updated 10/03/19 @ 10:47 by Anitha Jones) Pancreatitis (Acute) DAGO (acute kidney injury) (Acute) Medication reaction (Acute) - Physical Exam Vitals/I&O's: Vital Signs Temp Pulse Resp BP Pulse Ox 98 F 78 18 171/90 H 100 10/03/19 12:38 10/03/19 12:38 10/03/19 12:38 10/03/19 12:38 10/03/19 12:38 Oxygen Delivery Method Room Air Weight: 143 lb Body Mass Index (BMI) 26.2 General: Alert, Oriented x3, Cooperative HEENT: Atraumatic, PERRLA, EOMI, Normocephalic Neck: Supple, No JVD, Negative Carotid Bruits Lungs: Clear to auscultation, Normal air movement Cardiovascular: Regular rate, No murmurs Abdomen: Bowel Sounds Present, Soft, Non Tender Extremities: No edema, Capillary Refill Less than 3 Seconds Skin: No rashes, No breakdown Musculoskeletal: No Tenderness to Palpation of Joints or Extremities Neurological: Cranial nerves II-XII grossly intact Psych/Mental Status: Normal Affect, Appropriate, Alert and oriented to time, place, person, mood and affect Laboratory Results 10/03/19 14:00: WBC 4.6, RBC 4.42, Hgb 13.3, Hct 40.8, MCV 92.3, MCH 30.1, MCHC 32.6, RDW Std Deviation 46.5 H, RDW Coeff of Claude 13.5, Plt Count 185, MPV 10.8, Immature Gran % (Auto) 0.400, Neut % (Auto) 55.9, Lymph % (Auto) 31.2, [place] % (Auto) 10.3 H, Eos % (Auto) 2.0, Baso % (Auto) 0.2, Absolute Neuts (auto) 2.6, Absolute Lymphs (auto) 1.43, Nucleated RBC % 0 10/03/19 14:00: Sodium 139, Potassium 4.2, Chloride 105, Carbon Dioxide 27.0, Anion Gap 7, BUN 26 H, Creatinine 1.75 H, Estim Creat Clear Calc 21.29, Est GFR (MDRD) Af Amer 36 L, Est GFR (MDRD) Non-Af 30 L, BUN/Creatinine Ratio 14.9, Glucose 90, Calcium 9.3 Current Medications Sodium Chloride () 1,000 mls @ 150 mls/hr IV .[id number] [facility] Last Admin: 10/03/19 14:15 Dose: 150 mls/hr Documented by: Assessment/Plan All Active Problems (Last Updated 10/03/19 @ 10:47 by Anitha Jones) Pancreatitis (Acute) DAGO (acute kidney injury) (Acute) Medication reaction (Acute) Stool color abnormal (Acute) Belching (Acute) Nausea (Acute) Left shoulder pain (Acute) Biliary colic symptom (Acute) Chest pain (Acute) 1. Abnormal labs, mildly elevated lipase, elevated BUN / CR - pt started taking lopid 1 week ago and has since had diarrhea with associated mild abd discomfort and nausea without vomiting. She appears to have DAGO (on CKDIII) likely 2/2 diarrhea, which is likely a medication reaction to the lopid. Hold HCTZ/Lefty. She will be given IV fluids overnight and supportive care. Recheck lipase and BMP in AM. -Abd US is negative. No fever/leukocytosis. -LFTs normal. -Lipase 911 -recent LDL 182, total cholesterol 241, triglycerides 85. 2. HTN - she went to see the granulating blender for low bp today (104/60). She started taking coreg and hctz earlier this week and they seem to be working well, I explained that 104/60 is much better controlled than her normal which she says is 140s systolic. HCTZ and LEFTY held for DAGO. Consider alternative agent like norvasc. 3. HLD - statin intolerant - severe muscle aches. Lopid stopper per #1. 4. Hypothyroidism - continue synthroid. recent thyroid studies slightly elevated TSH and normal T4. DVT ppx: heparin DC planning: home no needs possibly tomorrow This patient was seen by Sukhwinder Green PA-C under the supervision of Dr. Pavon.
[2019-10-03 16:23] VITALS: RESP 18
[2019-10-03 17:16] VITALS: BMI 26.4
[2019-10-03 17:23] VITALS: BMI 26.5
[2019-10-03 17:42] VITALS: BP 158/83; PULSE 71; RESP 16; TEMP 36.6; O2SAT 97
[2019-10-03 20:56] VITALS: BP 149/78; PULSE 68; RESP 15; TEMP 36.6; O2SAT 95
[2019-10-03 21:30] VITALS: PULSE 68; RESP 15; O2SAT 95
[2019-10-03] MEDS: 0.9% Normal Saline 1,000 ML 125 ML IV (22:45)
[2019-10-04 04:00] VITALS: PULSE 76; RESP 15; O2SAT 98
[2019-10-04 04:01] VITALS: BP 125/70; PULSE 76; RESP 15; TEMP 36.6; O2SAT 98
[2019-10-04] MEDS: 0.9% Normal Saline 1,000 ML 125 ML IV (07:34)
[2019-10-04 07:55] LABS: AST(SGOT) 17 U/L (15-37); Alanine Aminotransfer ALT/SGPT 20 U/L (13-56); Albumin, Serum 3.1 g/dL (3.2-5.0); Alkaline Phosphatase 55 U/L (45-117); Anion Gap 5 (5-15); BUN 18 mg/dL (7-18); BUN/Creat Ratio 14.2 RATIO (10-20); Calcium,Total 8.6 mg/dL (8.5-10.1); Chloride 112 mmol/L (98-107); Creatinine, Serum 1.27 mg/dL (0.55-1.02); EST Glomerular Filtration Rate 43 mL/min (>60); Est Glom Filt Rate - Afr Amer 52 mL/min (>60); Estimated Creatinine Clearance 29.34 ml/min; Globulin 3.2 g/dL (2.2-4.2); Glucose 89 mg/dL (74-106); Lipase 505 U/L (73-393); Potassium 4.1 mmol/L (3.5-5.1); Protein, Total 6.3 g/dL (6.4-8.2); Sodium Level 144 mmol/L (136-145)
[2019-10-04 09:31] VITALS: BP 150/85; PULSE 77; RESP 14; TEMP 36.6; O2SAT 97
--- NOTE | 2019-10-04 11:46 | DCINST_ITS ---
- Discharge Diagnoses Current Active Problems: Current Active and Chronic Problems (Last Updated 10/03/19 @ 10:47 by Anitha Jones) Pancreatitis (Acute) DAGO (acute kidney injury) (Acute) Medication reaction (Acute) You will use the following diet at home:: Cardiac Your food should be the consistency of: Regular Your liquids should be the consistency of: Regular/Thin Discharge Activity: Return to Normal Activity Allergies/Adverse Reactions: Allergies No Known Allergies Allergy (Verified 10/03/19 12:40) Medications to take at Discharge Levothyroxine [Synthroid] 75 mcg PO DAILY 03/19/18 Carvedilol [Coreg (Beta Mathew)] 6.25 mg PO BID 10/03/19 Acetaminophen [Tylenol Tablet] 650 mg PO Q6H PRN PRN tablet 10/04/19 Amlodipine [Norvasc] 5 mg PO DAILY #30 tab 10/04/19 The following prescriptions were given: Amlodipine [Norvasc] 5 mg PO DAILY #30 tab Transmission Status: Pending to [facility]/pharmacy #[id number] Primary Care Physician: Andrés Sagastume MD [Primary Care Provider] - Please follow up with your Primary Care Physician in: 1-2 weeks Test Results: Test results from this visit will be discussed in further detail at your follow- up appointment, if applicable. Please Follow Up With: Alberto Wheeler MD When: as directed Proposed Discharge Date: 10/04/19
--- NOTE | 2019-10-04 12:45 | PCM.DC.SUM ---
<Sukhwinder Green - Last Filed: 10/04/19 12:45> Discharge Date and Diagnosis - Problem List Patient Problems: Active and Suspected Problems (Last Updated 10/03/19 @ 10:47 by Anitha Jones) DAGO (acute kidney injury) (Acute) Medication reaction (Acute) Date of Admission: 10/03/19 Date of Discharge: 10/04/19 - Primary Discharge Diagnosis Active and Suspected Problems (Last Updated 10/03/19 @ 10:47 by Anitha Jones) DAGO Elevated lipase Medication reaction HTN HLD Hypothyroidism - Secondary Discharge Diagnosis Chronic Problems (Last Updated 10/03/19 @ 10:47 by Anitha Jones) History of throat cancer (Chronic) History of chest pain (Chronic) Osteoporosis (Chronic) Lumbago (Chronic) Hypothyroidism (Chronic) HTN (hypertension) (Chronic) HLD (hyperlipidemia) (Chronic) GERD (gastroesophageal reflux disease) (Chronic) Type II diabetes mellitus, uncontrolled (Chronic) Hospital Course and Treatment Imaging Results: US/Abdomen Limited IMPRESSION: Normal right upper quadrant ultrasound examination. Operations: None Procedures: None Summary of Care Provided: Hospital Course: The patient is a 78 year old F with pmhx of HTN, HLD, hypothyroidism who presented to the ER with c/o abnormal labs. She went to her retail stock clerk because she thought her BP was low at 104/60. Cardiology checked lipase and CMP finding a lipase of 911 and BMP c/w DAGO. She was sent to the ER. Abdominal US was unremarkable. She does not drink, does not have a gallbladder, does not take statins and does not have significant hypertriglyceridemia. The patient a week prior had started new meds including lopid, HCTZ, and lisinopril. After starting these she had nausea, and diarrhea associated with crampy abdominal pain. She was taken off of these and admitted for DAGO. She was placed on clear liquids She did well overnight and had no symptoms by the AM. Lipase and Renal function all improved. Coreg was continued, and norvasc was added as an alternative to HCTZ and lisinopril. Lopid is discontinued for now as it may be the source of her diarrhea and dehydration resulting in DAGO and elevated lipase, HCTZ may also increase the lipase or cause pancreatitis and should not be resumed. She should follow up with her PCP in 1-2 weeks. She should follow up with cardiology as directed. She was discharged home in stable condition. This patient was seen by Sukhwinder Green PA-C under the supervision of Dr. Martins. [] Patient Problems: Active and Suspected Problems (Last Updated 10/03/19 @ 10:47 by Anitha Jones) DAGO (acute kidney injury) (Acute) Medication reaction (Acute) - Physical Exam Vitals/I&O's: Vital Signs Temp Pulse Resp BP Pulse Ox 97.9 F 77 14 150/85 H 97 10/04/19 09:31 10/04/19 09:31 10/04/19 09:31 10/04/19 09:31 10/04/19 09:31 Oxygen Delivery Method Room Air Weight: 144 lb 11.2 oz Body Mass Index (BMI) 26.4 Intake and Output for Last 24 Hours 10/02/19 10/03/19 10/04/19 23:59 23:59 23:59 Intake Total 1000 / 1100 1100 / 1100 Output Total 350 / 350 Balance 1000 / 900 750 / 750 General: Alert, Oriented x3, Cooperative HEENT: Atraumatic, PERRLA, EOMI, Normocephalic Neck: Supple, No JVD, Negative Carotid Bruits Lungs: Clear to auscultation, Normal air movement Cardiovascular: Regular rate, No murmurs Abdomen: Bowel Sounds Present, Soft, Non Tender Extremities: No edema, Capillary Refill Less than 3 Seconds Skin: No rashes, No breakdown Musculoskeletal: No Tenderness to Palpation of Joints or Extremities Neurological: Cranial nerves II-XII grossly intact Psych/Mental Status: Normal Affect, Appropriate Laboratory Results 10/03/19 14:00: WBC 4.6, RBC 4.42, Hgb 13.3, Hct 40.8, MCV 92.3, MCH 30.1, MCHC 32.6, RDW Std Deviation 46.5 H, RDW Coeff of Claude 13.5, Plt Count 185, MPV 10.8, Immature Gran % (Auto) 0.400, Neut % (Auto) 55.9, Lymph % (Auto) 31.2, Monroe % (Auto) 10.3 H, Eos % (Auto) 2.0, Baso % (Auto) 0.2, Absolute Neuts (auto) 2.6, Absolute Lymphs (auto) 1.43, Nucleated RBC % 0 10/03/19 14:00: Sodium 139, Potassium 4.2, Chloride 105, Carbon Dioxide 27.0, Anion Gap 7, BUN 26 H, Creatinine 1.75 H, Estim Creat Clear Calc 21.29, Est GFR (MDRD) Af Amer 36 L, Est GFR (MDRD) Non-Af 30 L, BUN/Creatinine Ratio 14.9, Glucose 90, Calcium 9.3 10/04/19 06:15: Sodium 144, Potassium 4.1, Chloride 112 H, Carbon Dioxide 27.0, Anion Gap 5, BUN 18, Creatinine 1.27 H, Estim Creat Clear Calc 29.34, Est GFR (MDRD) Af Amer 52 L, Est GFR (MDRD) Non-Af 43 L, BUN/Creatinine Ratio 14.2, Glucose 89, Calcium 8.6, Total Bilirubin 0.50, AST 17, ALT 20, Alkaline Phosphatase 55, Total Protein 6.3 L, Albumin 3.1 L, Globulin 3.2, Albumin/Globulin Ratio 1.0, Lipase 505 H Current Medications Acetaminophen (Tylenol) 650 mg PO Q6H PRN PRN PRN Reason: Pain or Fever Carvedilol (Coreg) 6.25 mg PO BID [facility] Sodium Chloride () 1,000 mls @ 125 mls/hr IV .Q8H [facility] Last Admin: 10/04/19 07:34 Dose: 125 mls/hr Documented by: Ondansetron HCl (Zofran) 4 mg IV Q6H PRN PRN PRN Reason: NAUSEA Oxycodone HCl (Oxyir) 5 mg PO Q6H PRN PRN PRN Reason: Pain Score 6-10/10 Sodium Chloride () 10 - 40 ml IV UD PRN PRN Reason: SALINE FLUSH Zolpidem Tartrate (Ambien (Generic)) 5 mg PO QHS PRN PRN PRN Reason: INSOMNIA Discharge Diet: Low fat/ Low Cholesterol, 2000 mg Sodium Diet Discharge Activity: Return to Normal Activity Home Medications: Medications to take at Discharge Levothyroxine [Synthroid] 75 mcg PO DAILY 03/19/18 Carvedilol [Coreg (Beta Mathew)] 6.25 mg PO BID 10/03/19 Acetaminophen [Tylenol Tablet] 650 mg PO Q6H PRN PRN tab 10/04/19 Amlodipine [Norvasc] 5 mg PO DAILY #30 tab 10/04/19 Following Prescrptions Were Given to Patient: Amlodipine [Norvasc] 5 mg PO DAILY #30 tab Transmission Status: Received by [facility]/pharmacy #[id number] Primary Care Physician: Andrés Sagastume MD [Primary Care Provider] - Please follow up with your Primary Care Physician in: 1-2 weeks Please Follow Up With: Alberto Wheeler MD When: as directed Disposition: Home Patient Condition:: Stable Medical Necessity - Tobacco Use Smoking Status: Never smoker Tobacco Use: Non-smoker Meaningful Use Info Meaningful Use Diagnoses (Choose all that apply): None applicable <Aleksandar Martins E - Last Filed: 10/04/19 13:04> Discharge Date and Diagnosis - Primary Discharge Diagnosis Active and Suspected Problems (Last Updated 10/03/19 @ 10:47 by Anitha Jones) Pancreatitis (Acute) DAGO (acute kidney injury) (Acute) Medication reaction (Acute) - Secondary Discharge Diagnosis Chronic Problems (Last Updated 10/03/19 @ 10:47 by Anitha Jones) History of throat cancer (Chronic) History of chest pain (Chronic) Osteoporosis (Chronic) Lumbago (Chronic) Hypothyroidism (Chronic) HTN (hypertension) (Chronic) HLD (hyperlipidemia) (Chronic) GERD (gastroesophageal reflux disease) (Chronic) Type II diabetes mellitus, uncontrolled (Chronic) Hospital Course and Treatment Summary of Care Provided: Hospitalist note: Discharge summary above reviewed and I concur with the above treatment and discharge plan. Patient was sent to ED by her retail stock clerk because of abnormal blood work. 1 week ago, patient was started on Lopid, HCTZ and lisinopril. After started on those medications, she started having nausea with diarrhea. She was found to have BUN of 26, creatinine of 1.75 and lipase of 911. She was found to have acute kidney injury which was treated with IV fluids and her new medications held including HCTZ and lisinopril as well as Lopid. Ultrasound liver and gallbladder revealed normal liver, status post cholecystectomy, CBD is 5.4 mm, normal pancreas and normal kidneys. With IV fluids, kidney function improved. Creatinine came down from 1.75 on admission to 1.27 today. Lipase came down from 911 down to 505. LFT was unremarkable. Patient denied any significant pain. This elevated lipase attributed to hydrochlorothiazide. Acute kidney injury attributed to lisinopril and HCTZ. Patient did very well. Her vital signs were stable. She was started on Norvasc for hypertension and continued on Coreg. Patient discharged home in a stable condition, discharged on Norvasc and Coreg for hypertension, HCTZ and lisinopril discontinued, recommended follow-up with PCP in 1 to 2 weeks. - Physical Exam General: Alert, Oriented x3, Cooperative, No apparent distress. HEENT: Atraumatic, PERRLA, EOMI. Neck: Supple, No JVD, Negative Carotid Bruits, Trachea Midline, Thyroid Normal. Lungs: Clear to auscultation, Normal air movement, No rhonchi, No wheeze, No rales. Cardiovascular: Regular rate, Regular Rhythm, Normal S1, Normal S2, PMI Normal. Abdomen: Bowel Sounds Present, Soft, Non Tender, Non-Distended, No Hepato-splenomegaly. Extremities: No clubbing, No cyanosis, No edema Skin: No rashes, No breakdown Neurological: Neuro grossly intact Vital Signs are stable. This note was generated with [employer] dictation software. It may contain incorrect words, spelling, and punctuation that were not noted in checking the note before signing. - Physical Exam Vitals/I&O's: Vital Signs Temp Pulse Resp BP Pulse Ox 97.9 F 77 14 150/85 H 97 10/04/19 09:31 10/04/19 09:31 10/04/19 09:31 10/04/19 09:31 10/04/19 09:31 Oxygen Delivery Method Room Air Weight: 144 lb 11.2 oz Body Mass Index (BMI) 26.4 Intake and Output for Last 24 Hours 10/02/19 10/03/19 10/04/19 23:59 23:59 23:59 Intake Total 1000 / 1100 1756.25 / 1756.25 Output Total 350 / 350 Balance 1000 / 900 1406.25 / 1406.25 Laboratory Results 10/03/19 14:00: WBC 4.6, RBC 4.42, Hgb 13.3, Hct 40.8, MCV 92.3, MCH 30.1, MCHC 32.6, RDW Std Deviation 46.5 H, RDW Coeff of Claude 13.5, Plt Count 185, MPV 10.8, Immature Gran % (Auto) 0.400, Neut % (Auto) 55.9, Lymph % (Auto) 31.2, Monroe % (Auto) 10.3 H, Eos % (Auto) 2.0, Baso % (Auto) 0.2, Absolute Neuts (auto) 2.6, Absolute Lymphs (auto) 1.43, Nucleated RBC % 0 10/03/19 14:00: Sodium 139, Potassium 4.2, Chloride 105, Carbon Dioxide 27.0, Anion Gap 7, BUN 26 H, Creatinine 1.75 H, Estim Creat Clear Calc 21.29, Est GFR (MDRD) Af Amer 36 L, Est GFR (MDRD) Non-Af 30 L, BUN/Creatinine Ratio 14.9, Glucose 90, Calcium 9.3 10/04/19 06:15: Sodium 144, Potassium 4.1, Chloride 112 H, Carbon Dioxide 27.0, Anion Gap 5, BUN 18, Creatinine 1.27 H, Estim Creat Clear Calc 29.34, Est GFR (MDRD) Af Amer 52 L, Est GFR (MDRD) Non-Af 43 L, BUN/Creatinine Ratio 14.2, Glucose 89, Calcium 8.6, Total Bilirubin 0.50, AST 17, ALT 20, Alkaline Phosphatase 55, Total Protein 6.3 L, Albumin 3.1 L, Globulin 3.2, Albumin/Globulin Ratio 1.0, Lipase 505 H Current Medications Acetaminophen (Tylenol) 650 mg PO Q6H PRN PRN PRN Reason: Pain or Fever Carvedilol (Coreg) 6.25 mg PO BID [facility] Sodium Chloride () 1,000 mls @ 125 mls/hr IV .Q8H [facility] Last Infusion: 10/04/19 12:49 Dose: Infused Documented by: Ondansetron HCl (Zofran) 4 mg IV Q6H PRN PRN PRN Reason: NAUSEA Oxycodone HCl (Oxyir) 5 mg PO Q6H PRN PRN PRN Reason: Pain Score 6-10/10 Sodium Chloride () 10 - 40 ml IV UD PRN PRN Reason: SALINE FLUSH Zolpidem Tartrate (Ambien (Generic)) 5 mg PO QHS PRN PRN PRN Reason: INSOMNIA Disposition: Home Minutes spent on discharge:: 26 Patient Condition:: Stable Meaningful Use Info Meaningful Use Diagnoses (Choose all that apply): None applicable Code Visit OBSV E&M: 91412 Observation care discharge
[2019-10-04 12:56] VITALS: BP 151/80; PULSE 86; RESP 16; TEMP 36.9; O2SAT 96
== END 2019-10-04 13:09 | disposition home or self-care (01) ==
LOC: ED 16:51 → MS3 16:55
PROVIDERS: Physician Assistant; Admitting Provider Internal Medicine; Emergency Provider Emergency Medicine; PCP Family Medicine; Visit Provider Hospitalist
DX: N17.9 Acute kidney failure, unspecified (principal); R74.8 Abnormal levels of other serum enzymes; E78.5 Hyperlipidemia, unspecified; K21.9 Gastro-esophageal reflux disease without esophagitis; E03.9 Hypothyroidism, unspecified; I12.9 Hypertensive chronic kidney disease with stage 1 through stage 4 chronic kidney disease, or unspecified chronic kidney disease; E11.22 Type 2 diabetes mellitus with diabetic chronic kidney disease; N18.3 Chronic kidney disease, stage 3 (moderate); Z79.899 Other long term (current) drug therapy; Z85.819 Personal history of malignant neoplasm of unspecified site of lip, oral cavity, and pharynx; T46.4X5A Adverse effect of angiotensin-converting-enzyme inhibitors, initial encounter; T50.2X5A Adverse effect of carbonic-anhydrase inhibitors, benzothiadiazides and other diuretics, initial encounter; K80.50 Calculus of bile duct without cholangitis or cholecystitis without obstruction; R19.5 Other fecal abnormalities; R14.2 Eructation; M25.512 Pain in left shoulder; R11.0 Nausea
CPT/HCPCS: 36415; 76705; 80048; 80053; 80076; 82150; 83690; 85025; 96360; 96361; 99218; 99284; J7030; A4216; G0378

== ENCOUNTER → 2019-10-20 07:57 | Outpatient (CLI) | payer MEDICARE, OTHER, SELFPAY ==
[2019-10-16 13:15] VITALS: BMI 27.4
[2019-10-20 10:14] LABS: Absolute Lymphocyte Count 1.03 X10^3/uL (0.83-4.51); Absolute Neutrophil Count 2.2 X10^3/uL (2.0-7.7); Basophil# 0.01 X10^3/uL; Basophil% 0.3 % (0-1); Eosinophils% 2.7 % (0-5); Hematocrit 38.4 % (37-47); Lymphocyte # 1.03 X10^3/ul (4.0); Lymphocyte % 28.2 % (19-41); Mean Corp Hgb Conc 31.3 g/dL (32-36); Mean Corpuscular Hgb 29.1 pg (27.0-32.0); Mean Platelet Vol. 11.1 fl (6.2-12.0); Monocyte# 0.33 X10^3/uL; NRBC Flagged by Analyzer 0 % (0-5); Neutrophil # 2.18 X10^3/uL (2.7-7.7); Neutrophil % 59.8 % (47-70); Platelet Count 147 K/mm3 (150-450); RBC Distribution Width SD 47.3 fl (35.1-43.9); Red Blood Count 4.13 M/mm3 (4.2-5.4); White Blood Count 3.7 K/mm3 (4.4-11.0)
[2019-10-20 10:52] LABS: AST(SGOT) 19 U/L (15-37); Alanine Aminotransfer ALT/SGPT 23 U/L (13-56); Albumin, Serum 3.6 g/dL (3.2-5.0); Alkaline Phosphatase 48 U/L (45-117); Anion Gap 4 (5-15); BUN 16 mg/dL (7-18); BUN/Creat Ratio 15.2 RATIO (10-20); CRP < 2.90 mg/L (0.0-3.0); Calcium,Total 8.9 mg/dL (8.5-10.1); Chloride 107 mmol/L (98-107); Creatinine, Serum 1.05 mg/dL (0.55-1.02); EST Glomerular Filtration Rate 54 mL/min (>60); Est Glom Filt Rate - Afr Amer 65 mL/min (>60); Globulin 3.7 g/dL (2.2-4.2); Glucose 107 mg/dL (74-106); Lipase 347 U/L (73-393); Magnesium 2.2 mg/dL (1.6-2.6); Protein, Total 7.3 g/dL (6.4-8.2); Sodium Level 141 mmol/L (136-145); T4 Total, Thyroxin 8.7 ug/dL (4.8-13.9); Uric Acid 7.6 mg/dL (2.6-6.0)
== END ==
PROVIDERS: PCP Family Medicine; Referring Provider Family Medicine; Visit Provider Family Medicine
DX: K85.90 Acute pancreatitis without necrosis or infection, unspecified (principal); I10 Essential (primary) hypertension; E03.9 Hypothyroidism, unspecified; N28.9 Disorder of kidney and ureter, unspecified; M10.9 Gout, unspecified
CPT/HCPCS: 36415; 80053; 83690; 83735; 84436; 84481; 84550; 85025; 86140

== ENCOUNTER → 2020-03-17 09:16 | Outpatient (CLI) | payer MEDICARE, OTHER, SELFPAY ==
[2019-10-16 13:15] VITALS: BMI 27.4
--- NOTE | 2020-03-17 09:20 | RAD_ITS ---
STUDY: X-RAY - LUMBAR SPINE REASON FOR EXAM: Female, 79 years old. Worsening back pain TECHNIQUE: 3 view(s) of the lumbar spine were obtained. COMPARISON: 06/26/2017 FINDINGS: There are stable post surgical changes from posterior fusion of L4/L5. The hardware is intact and alignment is satisfactory. There is no evidence of fracture or dislocation in the lumbar spine. The vertebral body heights are well-maintained. There is stable mild multilevel degenerative changes. RAD/L/S Spine Min 4 Views IMPRESSION: No fracture or dislocation in the lumbar spine. Stable postsurgical and degenerative change. Electronically Signed: Lm Springer, at 17:37 EDT Tel , Service support ,
== END ==
PROVIDERS: PCP Family Medicine; Referring Provider Family Medicine; Visit Provider Family Medicine
DX: M54.5 Low back pain (principal)
CPT/HCPCS: 72110

== ENCOUNTER → 2020-04-21 08:32 | Outpatient (CLI) | payer MEDICARE, OTHER, SELFPAY ==
[2019-10-16 13:15] VITALS: BMI 27.4
[2020-04-21 10:03] LABS: Absolute Lymphocyte Count 1.36 X10^3/uL (0.83-4.51); Absolute Neutrophil Count 3.4 X10^3/uL (2.0-7.7); Basophil# 0.02 X10^3/uL; Basophil% 0.4 % (0-1); Eosinophil# 0.16 X10^3/uL; Eosinophils% 2.9 % (0-5); Hematocrit 39.8 % (37-47); Hemoglobin 12.3 g/dL (12.0-15.0); Lymphocyte # 1.36 X10^3/ul (4.0); Lymphocyte % 24.6 % (19-41); Mean Corp Hgb Conc 30.9 g/dL (32-36); Mean Corpuscular Hgb 29.5 pg (27.0-32.0); Mean Corpuscular Volume 95.4 fL (81-99); Monocyte# 0.53 X10^3/uL; Monocyte% 9.6 % (0-10); NRBC Flagged by Analyzer 0 % (0-5); Neutrophil # 3.43 X10^3/uL (2.7-7.7); Neutrophil % 62.1 % (47-70); Platelet Count 201 K/mm3 (150-450); RBC Distribution Width CV 13.6 % (11.6-14.6); RBC Distribution Width SD 48.1 fl (35.1-43.9); Red Blood Count 4.17 M/mm3 (4.2-5.4); White Blood Count 5.5 K/mm3 (4.4-11.0)
[2020-04-21 10:52] LABS: AST(SGOT) 19 U/L (15-37); Alanine Aminotransfer ALT/SGPT 23 U/L (13-56); Albumin, Serum 3.6 g/dL (3.2-5.0); Alkaline Phosphatase 58 U/L (45-117); Anion Gap 8 (5-15); BUN 14 mg/dL (7-18); BUN/Creat Ratio 10.3 RATIO (10-20); CRP 4.82 mg/L (0.0-3.0); Calcium,Total 8.6 mg/dL (8.5-10.1); Chloride 104 mmol/L (98-107); Creatinine, Serum 1.36 mg/dL (0.55-1.02); EST Glomerular Filtration Rate 40 mL/min (>60); Est Glom Filt Rate - Afr Amer 48 mL/min (>60); Globulin 3.7 g/dL (2.2-4.2); Glucose 107 mg/dL (74-106); Potassium 3.8 mmol/L (3.5-5.1); Protein, Total 7.3 g/dL (6.4-8.2); Sodium Level 140 mmol/L (136-145)
== END ==
PROVIDERS: PCP Family Medicine; Referring Provider Family Medicine; Visit Provider Family Medicine
DX: R10.31 Right lower quadrant pain (principal)
CPT/HCPCS: 36415; 80053; 85025; 86140

== ENCOUNTER → 2020-04-26 14:43 | Outpatient (CLI) | payer MEDICARE, OTHER, SELFPAY ==
[2019-10-16 13:15] VITALS: BMI 27.4
--- NOTE | 2020-04-26 14:45 | CT_ITS ---
STUDY: CT ABDOMEN AND PELVIS WITHOUT CONTRAST REASON FOR EXAM: Female, 79 years old. RLQ PAIN X MONTHS. Oral contrast only. Prior cholecystectomy and lumbar surgery. HTN-rx controlled. Hx of vocal cord cancer RADIATION DOSAGE (If Supplied By Facility): CTDIvol = ( 10.92 ) mGy, DLP = ( 524.87 ) mGycm TECHNIQUE: Transaxial images were obtained from the dome of the diaphragm to the symphysis pubis with oral contrast, and without intravenous contrast. Sagittal and coronal images were reconstructed. Individualized dose optimization techniques were used for this CT. COMPARISON: 2016 FINDINGS: There are chronic interstitial fibrotic changes of the lung bases. The visualized portions of the heart are within normal limits. Normal liver. There is non-visualization of the gallbladder, which may be secondary to either contraction or a prior cholecystectomy. Normal spleen. Normal pancreas. Normal bilateral adrenal glands. Normal right kidney. Normal left kidney. Normal visualized stomach. Normal small intestine. Retained stool noted throughout the colon. There is non-visualization of the appendix. Normal abdominal aorta. Normal inferior vena cava. Normal retroperitoneum. Normal urinary bladder. Uterus is still present, the endometrium cannot be accurately evaluated with CT Bilateral fat-containing inguinal hernias. There are diffuse degenerative changes of the visualized lumbar spine, and pelvis. Surgical hardware in the lumbar spine free of complication CT/Abdomen/Pelvis without Cont IMPRESSION: No suspicious solid organ abnormality No free intraperitoneal fluid, air, or suspicious adenopathy Retained stool in the colon Uterus is still present, the endometrium cannot be accurately evaluated with CT. Electronically Signed: Jose Boyd MD at 10:54 EDT , Service support ,
== END ==
PROVIDERS: PCP Family Medicine; Referring Provider Family Medicine; Visit Provider Family Medicine
DX: R10.31 Right lower quadrant pain (principal)
CPT/HCPCS: 74176

== ENCOUNTER 2020-04-27 13:30 | Outpatient (RCR) | payer MEDICARE, OTHER, SELFPAY ==
[2019-10-16 13:15] VITALS: BMI 27.4
--- NOTE | 2020-03-23 09:58 | HP.PTEVAL_ITS ---
Patient's Visit Information BUD DIAMOND is a 79 year old F referred to Physical Therapy by Dr. Andrés Sagastume MD with a diagnosis of CHRONIC LUMBAR PAIN AND SEVERE SPASMS. Date of Evaluation: 03/23/20 Physical Therapist: Edyta Aldana PT, Cert MDT - Visit Plan Frequency: 2-3x /Week Duration: 4-6 Weeks Plan: AQUATIC THERAPY FOR POSTURE CORRECTION/STRENGTHENING, INSTRUCTION IN APPROPRIATE BODY MECHANICS AND ACTIVITY MODIFICATIONS. DLS STARTING WITH A NEUTRAL SPINE PROGRESSING ROM TOLERATED. MAKENNA LE ROM, STRETCHING AND STRENGTHENING. HEP INSTRUCTION. 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 Present symptoms: MAKENNA LOW BACK AND HIP PAIN. MAKENNA THIGH PAIN, NUMBNESS AND TINGLING. IT HURTS ALL THE WAY THROUGH FROM THE FRONT TO THE BACK AND IN THE HIP SOCKETS. TODAY IT IS WORSE ON THE RIGHT. Present since: CHRONIC. FLARED UP IN SEP 2019. Pain Scale: WORSE 9/10, LEAST 2/10. Currently: 5/10. Commenced as a result of: NO APPARENT REASON. Symptoms at onset: LOW BACK. Worse: STOOPING, BENDING, LIFTING, DARLENE ENING, PULLING WEEDS, CHANGING MACK LITTER, STANDING TO COOK, WALKING - GOING TO THE STORE IS HORRIBLE. ANYTIME I AM ON MY FEET. Better: SITTING DOWN, JUST GETTING OFF MY FEET, LYING DOWN. Disturbed sleep: YES. Previous history/Previous treatment: TENS, ICY HOT, PAIN MEDICINE, INJECTIONS YEARS AGO DIDN'T PHASE IT, BACK SURGERY 2012 FUSION IN [place] - HELPED. PATIENT REPORTS THIS IS THE SECOND FLARE UP SHE HAS HAD SINCE SURGERY AND PT HELPED THE OTHER TIME. Treatment this episode: OXICODONE - HELPING - TAKES THE EDGE OFF DURING THE DAY AND HELPS SLEEP. Coughing/sneezing/straining: POSITIVE. Gait: SLOW AND PAINFUL. DISTANCE LIMITED. I NOTICE I DON'T LIFT MY FEET UP AND I TRIP GOING UP THE STAIRS A LOT'. Difficulty initiating urinatin: NO. Accidents: NO. Unexplained weight loss: NO. Imaging: RECENT LUMBAR X-RAY: IMPRESSION: No fracture or dislocation in the lumbar spine. . Stable postsurgical and degenerative change. . PMH: HTN - PATIENT REPORTS SHE WAS IN THE ED Sep FOR HTN. - Objective Sitting Posture: POOR. Standing Posture: POOR. STANDS WITH INCREASED TRUNK FLEXION. INCREASED KYPHOSIS, FORWARD HEAD AND ROUNDED SHOULDERS. Lordosis: DECREASED. Lateral shift: NO. Relevant shift: NO. Active Correction of posture: WORSE. Other Observations: INDEP GAIT INTO PT WITHOUT ASSITIVE DEVICE WITH DECREASED CADANCE, INCREASED TRUNK FLEXION AND DECREASED MAKENNA STRIDE LENGTH. LIMPING ON RIGHT LE. INDEP TRANSFER SIT TO STAND WITHOUT UE ASSIST BUT VERY DIFFICULT. DIFFICULTY APPEARS TO COME MORE FROM LE WEAKNESS THAN BACK PAIN. Motor deficit: RIGHT LE: HIP 3+/5, KNEE EXT 4-/5, KNEE FLEX 4-/5, ANKLE 4/5. LLE: HIP FLEX 4-/5, KNEE EXT 4-/5, KNEE FLEX 4/5, ANKLE DORSIFLEXION 3- /5. Sensory deficit: MAKENNA LE LIGHT TOUCH SENSATION IS INTACT AND SYMMETRICAL WITH TESTING IN CLINIC TODAY - EVEN LEFT FOOT. ROM deficit: TIGHT MAKENNA HS'S AND GASTROC SOLEUS COMPLEX'S ALONG WITH HIP FLEXORS AND ROTATORS. Reflexes: QUADS 2/2, ABSENT MAKENNA ACHILLES. Dural Signs: POSITIVE MAKENNA LE'S. Lumbar mvmt loss: flex - MOD TO SAÚL. ext - SAÚL. R SG - SAÚL. L SG - SAÚL. INCREASED LOW BACK WITH SPINE ROM TESTING ALL PLANES. Core strength: POOR. Palpation: PATIENT IS VERY TENDER TODAY IN LUMBAR SPINE REGION R>L AND INCREASED MUSCLE TONE MAKENNA PARASPINALS THROUGHOUT. TREATMENT: NEUROMUSCULAR REEDUCATION - RETRAINING OF MVMT AND POSTURE FOR SITTING, LYING AND STANDING ACTIVITIES. - Goals Goal 1:: DECREASE C/O BACK AND MAKENNA LE SX'S. Goal Time Frame: 4-6 Weeks Goal 2:: IMPROVE PERSONAL CARE, LIFTING, WALKING, SITTING, STANDING, SLEEP, SOCIAL LIFE TRAVEL AND HOMEMAKING FUNCTION Goal Time Frame: 4-6 Weeks Goal 3:: INSTRUCT IN PROPHYLAXIS Goal Time Frame: 4-6 Weeks - Anticipated Interventions Patient/Client Instruction: Educate patient on: Condition, Plan of Care, Risk Factors, Benefits of Fitness Program For the Purpose of:: To improve self management Therapeutic Exercise to Include: Strength training, Body mechanics, Postural training, Flexibilty training, Gait and locomotor training, Neuromotor development, Dynamic Lumbar Stabilization For the Purpose of:: To decrease pain, To increase ROM, To improve muscle performance and motor function, To increase tolerance to activity/condition/position, To improve ability of physical actions for home/community/work/leisure, To improve gait and locomotor functions Cryotherapy (ice pack, ice massage): Yes Thermo therapy (hot pack): Yes Ultrasound (thermal/non thermal): Yes For the Purpose of:: To decrease pain, To decrease swelling/inflammation, To improve nutrient delivery to tissue Thank you for the opportunity to evaluate your patient. For Medicare and Medicare HMO plans, please review the plan of care and approve it. It will need to be FAXED BACK to us at [phone] for Medicare purposes. For Medicare only, by signing this I certify the plan of care. Please let me know if there are questions or concerns regarding this plan of care. Physician Signature: Date:
--- NOTE | 2020-04-27 13:55 | HP.PTDCSUM ---
It has been my pleasure to treat BUD DIAMOND referred by Dr. Andrés Sagastume MD, with the diagnosis of CHRONIC LUMBAR PAIN AND SEVERE SPASMS for a total of 10 visit(s). Discharge Date: 04/27/20 Please see the following information for a summary of their discharge status. Subjective: PATIENT REPORTS THE STRETCHING IN THE POOL SEEMED TO EASE UP HER PAIN BUT THE PAIN WOULD COME BACK. DOING THE STRETCHES ON LAND MAKES THE PAIN WORSE. STATES SE WENT BACK TO DR. SAGASTUME LAST WEEK AND HE ORDERED A CAT SCAN. SHE REPORTS SHE CAN'T GO ON LIKE THIS. STATES SHE IS STILL VERY LIMITED BY PAIN WALKING TO TRY TO DO THINGS LIKE GROCERY SHOPPING. SHE REPROTS IF SHE PUSHES IT TOO HARD SHE GETS NAUSEATED. SHE REPORTS DR. SAGASTUME THINKS SHE MIGHT HAVE A HERNIA OR A PINCHED NERVE. PATIENT REPORTS THAT OVER-ALL SHE IS NO BETTER SINCE STARTING PT AND RIDING IN TO PT CAUSES HER INCREASED PAIN. PATIENT REPORTS SHE IS NOT WORSE, SHE IS JUST NOT GETTING BETTER. LB Pain Intensity (Out of 10): 4 LLE Pain Intensity (Out of 10): 0 RLE Pain Intensity (Out of 10): 4 % Improvement: 0 Objective/Function: PATIENT WAS SEEN TODAY FOR RE-ASSESSMENT OF PROGRESS TOWARD THE SET PT GOALS AND THE NEED FOR FURTHER PHYSICAL THERAPY VS READINESS FOR DISCHARGE. PATIENT IS NOT GETTING BETTER. SHE REPORTS CONSTANT BURING PAIN WITH INTERMITTENT SHARP PAIN IN THE RIGHT HIP AREA. UPON EXAM TODAY THERE ARE NO SIGNIFICANT CHANGES SINCE INITIAL EVAL EXCEPT PATIENT IS NOW REPORTING DECREASED LIGHT TOUCH SENSATION OF THE RIGHT LE COMPARED TO THE LEFT WITH TESTING. SHE HAS HAD NUMBNESS AND TINGLING SINCE APPROX SEP 2019 IN THE RIGHT LEG PER PATIENT REPORT BUT LIGHT TOUCH APPEARED INTACT AND SYMMETRICAL AT EVAL AND NOW IT IS NOT. THIS PATIENT IS APPROPRIATE FOR DISCHARGE FROM PT AND FOR FOLLOW UP WITH DR. SAGASTUME DUE TO LACK OF IMPROVEMENT. PATIENT IS AWAITING CAT SCAN RESULTS. Goal 1:: DECREASE C/O BACK AND MAKENNA LE SX'S. Goal Progress: Not Progressing Goal 2:: ;. IMPROVE PERSONAL CARE, LIFTING, WALKING, SITTING, STANDING, SLEEP, SOCIAL LIFE TRAVEL AND HOMEMAKING FUNCTION Goal 3:: INSTRUCT IN PROPHYLAXIS Goal Progress: Not Progressing Plan: D/C DUE TO LACK OF IMPROVEMENT. PATIENT IS AGREEABLE. If there are questions or concerns regarding this patient's physical therapy, please feel free to call me at [phone]. Thank you for the referral of this patient. Sincerely, Edyta Aldana PT, Cert MDT
== END 2020-04-27 19:00 | disposition home or self-care (01) ==
LOC: PT 13:30
PROVIDERS: PCP Family Medicine; Referring Provider Family Medicine; Visit Provider Family Medicine
DX: M54.5 Low back pain (principal); G89.29 Other chronic pain; M62.830 Muscle spasm of back
CPT/HCPCS: 97112; 97113; 97162; 97164

== ENCOUNTER → 2020-05-25 12:21 | Outpatient (CLI) | payer MEDICARE, OTHER, SELFPAY ==
[2019-10-16 13:15] VITALS: BMI 27.4
--- NOTE | 2020-05-25 12:35 | RAD_ITS ---
STUDY: X-RAY - PELVIS AND BILATERAL HIPS REASON FOR EXAM: Female, 79 years old. Bilateral hip pain TECHNIQUE: AP view of the pelvis.? 2 views of the right hip, and 2 views of the left hip were obtained. COMPARISON: None. FINDINGS: There is a non-specific bowel gas pattern. Normal visualized soft tissue structures. Postoperative changes lower lumbar spine. Normal bilateral iliac wings, sacroiliac joints and visualized sacrum. Normal bilateral superior and inferior pubic rami. Normal pubic symphysis. Normal bilateral ischial tuberosities. . Normal visualized right femoral head. Normal right acetabulum. There is mild articular joint space narrowing of the right hip. Normal visualized left femoral head. There is osteoarthritic spur formation of the left acetabular rim. There is mild articular joint space narrowing of the left hip. RAD/Hips B/L min 2 views w/ Pelvis IMPRESSION: Degenerative change no visualized acute fracture. Electronically Signed: Rosalina Jeong MD at 6:03 EDT Tel , Service support ,
[2020-05-25 15:46] LABS: Absolute Lymphocyte Count 1.03 X10^3/uL (0.83-4.51); Absolute Neutrophil Count 3.8 X10^3/uL (2.0-7.7); Basophil# 0.01 X10^3/uL; Basophil% 0.2 % (0-1); Eosinophil# 0.12 X10^3/uL; Eosinophils% 2.2 % (0-5); Hematocrit 40.7 % (37-47); Hemoglobin 12.6 g/dL (12.0-15.0); Lymphocyte # 1.03 X10^3/ul (4.0); Lymphocyte % 18.6 % (19-41); Mean Corpuscular Hgb 30.2 pg (27.0-32.0); Mean Corpuscular Volume 97.6 fL (81-99); Mean Platelet Vol. 11.6 fl (6.2-12.0); Monocyte# 0.54 X10^3/uL; Monocyte% 9.7 % (0-10); NRBC Flagged by Analyzer 0 % (0-5); Neutrophil # 3.83 X10^3/uL (2.7-7.7); Neutrophil % 69.1 % (47-70); Platelet Count 197 K/mm3 (150-450); RBC Distribution Width CV 13.8 % (11.6-14.6); RBC Distribution Width SD 49.7 fl (35.1-43.9); Red Blood Count 4.17 M/mm3 (4.2-5.4); White Blood Count 5.5 K/mm3 (4.4-11.0)
[2020-05-25 16:18] LABS: ALB/GLOB Ratio 0.9 RATIO (0.9-2.4); AST(SGOT) 259 U/L (15-37); Alanine Aminotransfer ALT/SGPT 138 U/L (13-56); Albumin, Serum 3.7 g/dL (3.2-5.0); Alkaline Phosphatase 85 U/L (45-117); Anion Gap 6 (5-15); BUN 17 mg/dL (7-18); BUN/Creat Ratio 13.1 RATIO (10-20); CPK Total, Creatine Kinase 96 U/L (26-192); CRP 3.13 mg/L (0.0-3.0); Chloride 104 mmol/L (98-107); EST Glomerular Filtration Rate 42 mL/min (>60); Est Glom Filt Rate - Afr Amer 51 mL/min (>60); Free T3 1.6 pg/mL (2.18-3.98); Globulin 3.9 g/dL (2.2-4.2); Glucose 91 mg/dL (74-106); Magnesium 2.3 mg/dL (1.6-2.6); Potassium 4.4 mmol/L (3.5-5.1); Protein, Total 7.6 g/dL (6.4-8.2); Sodium Level 138 mmol/L (136-145); T4 Free Direct 0.81 ng/dL (0.76-1.46)
[2020-05-26 08:35] LABS: PTHIN 83.7 pg/mL (18.4-80.1)
[2020-05-28 02:13] LABS: ANTINUCLEAR ANTIBODIES DIRECT Negative (Negative)
== END ==
PROVIDERS: PCP Family Medicine; Referring Provider Family Medicine; Visit Provider Family Medicine
DX: R25.2 Cramp and spasm (principal); E03.9 Hypothyroidism, unspecified; M16.10 Unilateral primary osteoarthritis, unspecified hip
CPT/HCPCS: 36415; 73521; 80053; 82550; 83735; 83970; 84439; 84443; 84481; 85025; 86038; 86140

== ENCOUNTER 2020-05-26 04:00 | Emergency (ER) | payer MEDICARE, OTHER, SELFPAY ==
[2019-10-16 13:15] VITALS: BMI 27.4
[2020-05-26 04:01] VITALS: BP 142/78; PULSE 113; RESP 21; TEMP 39.5; O2SAT 91; BMI 28.6
[2020-05-26 04:08] VITALS: BP 142/78; PULSE 109; RESP 14; TEMP 39.5; O2SAT 95
--- NOTE | 2020-05-26 04:20 | EKG12_ITS ---
Test Reason : CP Blood Pressure : / mmHG Vent. Rate : 112 BPM Atrial Rate : 112 BPM P-R Int : 088 ms QRS Dur : 086 ms QT Int : 484 ms P-R-T Axes : 000 008 047 degrees QTc Int : 660 ms Sinus tachycardia with short MA Low voltage QRS (Limb Leads) Nonspecific ST abnormality Prolonged QT Abnormal ECG Confirmed by KATIE HOPSON, BETH ([id number]), movie editor SHELLY SOLIS ([id number]) on 05/27/2020 1:06:18 PM Referred By: KING Confirmed By:BETH WILSON MD
--- NOTE | 2020-05-26 04:20 | RAD_ITS ---
STUDY: X-RAY CHEST REASON FOR EXAM: Female, 79 years old. FEVER, WEAKNESS IN BLE, CHEST PAIN, MUSCLE ACHES, HEADACHE. TECHNIQUE: Single AP portable view of the chest. COMPARISON: September 23, 2019 chest x-ray FINDINGS: The lungs are clear and expanded. There is no demonstrated pleural abnormality. Normal size heart. Normal mediastinum and zaida. Normal visualized pulmonary arteries. Normal visualized aortic arch and descending thoracic aorta. There are diffuse degenerative changes of the visualized thoracic spine. Normal visualized ribs, clavicles, and shoulders. There is no demonstrated abnormality of the visualized soft tissue structures of the upper abdomen. RAD/Chest 1 View (Portable) IMPRESSION: Normal x-ray examination of the chest. Electronically Signed: Rosalina Jeong MD at 5:12 EDT Tel , Service support ,
--- NOTE | 2020-05-26 04:22 | ED.DCSUM_ITS ---
History of Present Illness Chief Complaint: Fever Informant: Patient, Family Narrative: Patient stated she started having fevers and chills and shakes approximately 5 hours ago at home at rest. She felt fine before this came on. She did not take her temperature. No home treatment. She was unable to get warm. She has had some mild weakness. She has a scratchy throat thinks that is from her hypothyroidism. She has had a frontal achy headache this evening. Mild in nature. Gradual onset. Patient stated she has some mild substernal chest tightness. No history of acute coronary syndrome. Stated she had a negative stress test in September of this year. Denies any history of cardiac disease. Denies any sick contacts including coronavirus. Denies any urinary symptoms. Patient stated she had a similar event and earlier this year with no specific cause of her fever found. - Past Medical History (1) DAGO (acute kidney injury) Status: Acute (2) Medication reaction Status: Acute (3) GERD (gastroesophageal reflux disease) Status: Chronic (4) HLD (hyperlipidemia) Status: Chronic (5) HTN (hypertension) Status: Chronic (6) History of chest pain Status: Chronic (7) History of throat cancer Status: Chronic (8) Hypothyroidism Status: Chronic (9) Lumbago Status: Chronic (10) Osteoporosis Status: Chronic (11) Type II diabetes mellitus, uncontrolled Status: Chronic Past Medical History - Allergies and Home Meds Allergies/Adverse Reactions: Allergies No Known Allergies Allergy (Verified 05/26/20 04:04) Primary Care Physician: Andrés Sagastume MD [Primary Care Provider] - Prior records reviewed: Yes Past Medical History: - - See problem list Surgical History: cholecystectomy, - - Cataract surgery, lumbar back surgery with hardware, cholecystectomy. Lives: With Family Smoking Status: Never smoker Alcohol: None Drugs: None - Family History Maternal Family History: Reports: Hypertension Paternal Family History: Reports: Heart Disease, Hypertension Review of Systems General: Reports: Chills, Fever, Malaise. Denies: Sweats Eyes: Denies: Visual changes - bilaterally, Diplopia ENT: Denies: Rhinorrhea, Sore throat Cardiovascular: Reports: Chest pain. Denies: Palpitations Respiratory: Denies: Dyspnea, Cough, Dyspnea on exertion Gastrointestinal: Denies: Abdominal pain, Nausea, Vomiting, Diarrhea, Melena, Hematochezia Genitourinary: Denies: Dysuria, Hematuria, Frequency Musculoskeletal: Reports: Back pain - Patient has chronic back pain. Denies: Extremity Pain Skin: Denies: Rash, Wounds Neurological: Reports: Headache, Weakness. Denies: Numbness Physical Exam Vital Signs/Narrative: Vital Signs Temp Pulse Resp BP Pulse Ox 05/26/20 04:08 103.1 F H 109 H 14 142/78 H 95 05/26/20 04:01 103.1 F H 113 H 21 H 142/78 H 91 General: Well nourished, Well developed, No Acute Distress Head: Normocephalic, Atraumatic Eyes: Perrl, EOMI ENT: Moist mucous membranes, No rhinorrhea Neck: Supple, Nontender Cardiovascular: Regular rate, Regular rhythm, No murmurs Respiratory: No distress, CTA bilaterally, Chest nontender Abdomen: Soft, Nontender, Nondistended, Normal bowel sounds Back: Nontender, Normal Inspection Extremities: Nontender, No edema Skin: Normal color, No rash Neurological: Alert, Oriented x3, Cranial nerves II-XII grossly intact, Normal Strength, Normal Sensation Psychological: Normal affect, Normal Mood Diagnostic/Tx/Re-eval - Medical Decision Making EKG obtained shows sinus tachycardia rate of 112 with no acute ischemia or arrhythmia. I do not appreciate a murmur to suggest endocarditis. Patient g iven IV fluids and Tylenol. Lab work and chest x-ray obtained. Lab work shows no leukocytosis. Positive left shift. Liver function test shows very slight abnormalities in AST and ALT. Lactate negative. Urinalysis shows 3+ bacteria with white blood cells consistent with urinary tract infection. COVID negative. Chest x-ray normal. Patient's fever went away after treatment. She was given IV fluids resting comfortably. Heart rate down to normal rate. Given a dose of ceftriaxone for her urine infection. Blood cultures were sent initially upon arrival. At this time the patient has a complicated urinary tract infection. I offered her admission for IV antibiotic therapy. She declined this. She wants to try oral therapy. She understands if she worsens she needs to return. I did explain to her that we did send a culture but it takes 48 hours to return. She understands is and continues to want to try home treatment. ED Disposition - Plan for ED Patient: Disposition: Home or Assisted Living Diagnosis: Complicated urinary tract infection, Sepsis secondary to UTI Instructions: Understanding Urinary Tract Infections (UTIs) Prescriptions: Amox/Clavulanate Tablet [Augmentin Tablet] 875 mg PO Q12H #20 tab Transmission Status: Pending to [facility]/pharmacy #[id number] Referrals: Andrés Sagastume MD [Primary Care Provider] -
[2020-05-26 04:31] LABS: Absolute Neutrophil Count 9.2 X10^3/uL (2.0-7.7); Basophil# 0.01 X10^3/uL; Basophil% 0.1 % (0-1); Eosinophil# 0.01 X10^3/uL; Eosinophils% 0.1 % (0-5); Hematocrit 38.6 % (37-47); Hemoglobin 12.8 g/dL (12.0-15.0); Lymphocyte % 4.8 % (19-41); Mean Corp Hgb Conc 33.2 g/dL (32-36); Mean Corpuscular Hgb 30.5 pg (27.0-32.0); Mean Corpuscular Volume 91.9 fL (81-99); Mean Platelet Vol. 10.6 fl (6.2-12.0); Monocyte# 0.75 X10^3/uL; Monocyte% 7.1 % (0-10); NRBC Flagged by Analyzer 0 % (0-5); Neutrophil # 9.19 X10^3/uL (2.7-7.7); Neutrophil % 87.4 % (47-70); POSITIVE DIFFERENTIAL YES; Platelet Count 153 K/mm3 (150-450); RBC Distribution Width CV 13.5 % (11.6-14.6); RBC Distribution Width SD 46.4 fl (35.1-43.9); White Blood Count 10.5 K/mm3 (4.4-11.0)
[2020-05-26 04:35] LABS: Differential Indicated SCAN CRITERIA MET
[2020-05-26] MEDS: 0.9% Normal Saline 1,000 ML 999 ML IV (04:42)
[2020-05-26] MEDS: oxyCODONE 5 MG Tablet PO (04:42)
[2020-05-26] MEDS: Acetaminophen 500 MG Tablet 1000 MG PO (04:42)
[2020-05-26 04:46] LABS: AST(SGOT) 95 U/L (15-37); Alanine Aminotransfer ALT/SGPT 96 U/L (13-56); Albumin, Serum 3.9 g/dL (3.2-5.0); Alkaline Phosphatase 82 U/L (45-117); Anion Gap 9 (5-15); BUN 18 mg/dL (7-18); BUN/Creat Ratio 12.4 RATIO (10-20); Calcium,Total 8.7 mg/dL (8.5-10.1); Chloride 99 mmol/L (98-107); Creatinine, Serum 1.45 mg/dL (0.55-1.02); EST Glomerular Filtration Rate 37 mL/min (>60); Est Glom Filt Rate - Afr Amer 45 mL/min (>60); Estimated Creatinine Clearance 25.29 ml/min; Globulin 4.1 g/dL (2.2-4.2); Glucose 181 mg/dL (74-106); Potassium 3.9 mmol/L (3.5-5.1); Sodium Level 134 mmol/L (136-145)
[2020-05-26 04:47] LABS: Lactic Acid 1.6 mmol/L (0.4-1.9)
[2020-05-26 04:51] LABS: International Normalized Ratio 1.1; Prothrombin Time (Protime)PT. 13.9 SECONDS (11.7-14.9)
[2020-05-26 05:00] LABS: Mucous, Urine 0 SEEN /hpf (<or=2+); Squamous Epithelial Cells - UA 0 SEEN /hpf (5-10)
[2020-05-26 05:03] LABS: Color, Urine Yellow (Yellow); Glucose, Dipstick Normal (Normal); Ketone-Dipstick 5 mg/dl (Negative); Leukocyte Esterase-Dipstick 500 /ul (Negative); Nitrite-Dipstick Positive (Negative); Occult Blood-Urine 50 /ul (Negative); Protein-Dipstick 15 mg/dl (Negative); Urine Bilirubin Dipstick Negative (Negative); Urine Clarity Cloudy (Clear); Urine Urobilinogen Normal (Normal)
[2020-05-26 05:04] LABS: Differential Comment SCANNED
[2020-05-26 05:09] LABS: Bacteria 3+ /hpf (None Seen); Red Blood Cells-Urine 0-5 SEEN /hpf (0-5); White Blood Cells 10-25 SEEN /hpf (0-5)
[2020-05-26] MEDS: Ceftriaxone 1 GM/50 ML BAG IV (05:25)
[2020-05-26 06:15] VITALS: BP 111/73; PULSE 89; RESP 17; TEMP 36.6; O2SAT 93
[2020-05-26 06:43] LABS: Probe Check PASS; Specimen Processing Control PASS
[2020-05-26 06:55] VITALS: BP 106/67; PULSE 87; RESP 14; O2SAT 93
== END 2020-05-26 07:14 | disposition home or self-care (01) ==
PROVIDERS: Emergency Provider Emergency Medicine; PCP Family Medicine
DX: N39.0 Urinary tract infection, site not specified (principal); A41.9 Sepsis, unspecified organism; E03.9 Hypothyroidism, unspecified; I10 Essential (primary) hypertension
CPT/HCPCS: 71045; 80053; 81001; 83605; 84484; 85025; 85610; 85730; 87040; 87077; 87086; 87088; 87186; 87635; 93005; 96365; 99285; C9803; J7030; A4216; U0003

== ENCOUNTER → 2020-06-07 09:59 | Outpatient (CLI) | payer MEDICARE, OTHER, SELFPAY ==
[2020-05-26 04:01] VITALS: BMI 28.6
--- NOTE | 2020-06-07 10:03 | MRI_ITS ---
STUDY: MRI LUMBAR SPINE WITHOUT CONTRAST REASON FOR EXAM: Female, 79 years old. pain low back and bilat hips, hx lumbar fusion, and cancer larynx TECHNIQUE: Standardized fat and water weighted pulse sequences were obtained in the sagittal and axial planes. COMPARISON: 09/25/2011 FINDINGS: Normal lumbar lordosis. There is no substantial scoliosis. Normal conus medullaris that terminates at the T12 L1-2: There is minimal disc space narrowing and endplate spondylosis. There is no significant disc herniation, central canal or foraminal stenosis. L2-3: There is increased severe disc space narrowing and endplates spondylosis. There is a increased moderate disc osteophyte complex and hypertrophic facet arthropathy with moderate central canal stenosis. There is mild right and mild left foraminal stenosis. L3-4: There is moderate disc space narrowing and endplates spondylosis. There is mild disc osteophyte complex and moderate facet arthropathy with mild central canal stenosis. There is mild right and mild left foraminal stenosis. Findings are increased since prior examination L4-5: There is mild disc space narrowing and endplates spondylosis. Again noted is the posterior transpedicular screw fusion and decompression laminectomy. The central canal and bilateral neural foramina are widely patent. There is minimal grade 1 anterolisthesis. Findings are stable since prior examination. L5-S1: There is mild disc space narrowing and endplates spondylosis. There is a mild disc osteophyte complex and facet arthropathy without significant central canal stenosis. There is mild right and mild left foraminal cells. Normal visualized sacral ala. Normal visualized paraspinous soft tissue structures. MRI/Spine Lumbar (Routine) IMPRESSION: Increased multilevel degenerative changes. L2/L3: Moderate central canal stenosis. Electronically Signed: Genesis Cope MD at 8:09 EDT Tel , Service support ,
== END ==
PROVIDERS: PCP Family Medicine; Referring Provider Anesthesiology Pain Medicine; Visit Provider Anesthesiology Pain Medicine
DX: M54.9 Dorsalgia, unspecified (principal)
CPT/HCPCS: 72148

== ENCOUNTER → 2020-07-12 12:01 | Outpatient (CLI) | payer MEDICARE, OTHER, SELFPAY ==
[2020-07-12 13:30] LABS: Amphetamine Urine VISTA NEGATIVE (<1000 ng/mL); Barbiturate Urine VISTA NEGATIVE (< 200 ng/mL); Benzodiazepine Urine VISTA NEGATIVE (< 200 ng/mL); Cocaine Urine VISTA NEGATIVE (< 300 ng/mL); Ecstacy Urine VISTA NEGATIVE (< 500 ng/mL); Methadone Urine VISTA NEGATIVE (< 300 ng/mL); PCP Urine VISTA NEGATIVE (< 25 ng/mL); THC Urine VISTA NEGATIVE (< 50 ng/mL); Vista UDS pH Range 6
== END ==
PROVIDERS: PCP Family Medicine; Referring Provider Anesthesiology Pain Medicine; Visit Provider Anesthesiology Pain Medicine
DX: F11.20 Opioid dependence, uncomplicated (principal)
CPT/HCPCS: 80307

== ENCOUNTER 2021-02-27 07:17 | Observation (INO) | payer MEDICARE, OTHER, SELFPAY ==
[2021-02-27] VITALS (13 sets, daily range): BP systolic 111–178; BP diastolic 59–91; PULSE 74–109; RESP 10–16; TEMP 36.7–36.8; O2SAT 95–98; BMI 28.3; BMI 27.7
--- NOTE | 2021-02-27 07:27 | RAD_ITS ---
STUDY: X-RAY CHEST REASON FOR EXAM: Female, 80 years old. Chest pain TECHNIQUE: Frontal view of the chest COMPARISON: 05/26/20 FINDINGS: The lungs are clear. There are no pleural effusions. There is no pneumothorax. The heart is normal in size. The visualized osseous structures are within normal limits. RAD/Chest 1 View (Portable) IMPRESSION: No acute thoracic pathology. Electronically Signed: Lm Springer MD at 8:26 EDT Tel , Service support ,
--- NOTE | 2021-02-27 07:27 | EKG12_ITS ---
Test Reason : Blood Pressure : / mmHG Vent. Rate : 116 BPM Atrial Rate : 116 BPM P-R Int : 174 ms QRS Dur : 086 ms QT Int : 326 ms P-R-T Axes : 066 011 025 degrees QTc Int : 453 ms Sinus tachycardia Nonspecific ST abnormality Abnormal ECG Confirmed by ARPIT HOPSON, MILLIE ([id number]), editor managing newspaper SHELLY SOLIS ([id number]) on 02/28/2021 10:49:36 A M Referred By: AMRIT Confirmed By:CLARISSA MUNSON MD
[2021-02-27 07:39] LABS: Absolute Lymphocyte Count 1.49 X10^3/uL (0.83-4.51); Absolute Neutrophil Count 3.3 X10^3/uL (2.0-7.7); Basophil# 0.02 X10^3/uL; Basophil% 0.4 % (0-1); Eosinophil# 0.12 X10^3/uL; Eosinophils% 2.2 % (0-5); Hematocrit 40.9 % (37-47); Hemoglobin 13.2 g/dL (12.0-15.0); Lymphocyte # 1.49 X10^3/ul (0.83-4.51); Lymphocyte % 26.8 % (19-41); Mean Corp Hgb Conc 32.3 g/dL (32-36); Mean Corpuscular Hgb 28.9 pg (27.0-32.0); Mean Corpuscular Volume 89.7 fL (81-99); Mean Platelet Vol. 10.1 fl (6.2-12.0); Monocyte# 0.59 X10^3/uL; Monocyte% 10.6 % (0-10); NRBC Flagged by Analyzer 0 % (0-5); Neutrophil # 3.31 X10^3/uL (2.7-7.7); Neutrophil % 59.6 % (47-70); Platelet Count 185 K/mm3 (150-450); RBC Distribution Width CV 13.5 % (11.6-14.6); RBC Distribution Width SD 44.5 fl (35.1-43.9); Red Blood Count 4.56 M/mm3 (4.2-5.4); White Blood Count 5.6 K/mm3 (4.4-11.0)
[2021-02-27 07:50] LABS: Anion Gap 8 (5-15); BUN 12 mg/dL (7-18); BUN/Creat Ratio 11.2 RATIO (10-20); Calcium,Total 8.9 mg/dL (8.5-10.1); Chloride 107 mmol/L (98-107); Creatinine, Serum 1.07 mg/dL (0.55-1.02); EST Glomerular Filtration Rate 53 mL/min (>60); Est Glom Filt Rate - Afr Amer 64 mL/min (>60); Estimated Creatinine Clearance 33.72 ml/min; Glucose 132 mg/dL (74-106); Potassium 3.8 mmol/L (3.5-5.1); Sodium Level 142 mmol/L (136-145)
--- NOTE | 2021-02-27 07:52 | EDS_ITS ---
HPI History of Present Illness Chief Complaint: Chest Pain Informant: patient Onset/Context/Timing Onset: Yesterday Activity at onset: gradual (But quickly while sitting at rest) Timing: Continuous Quality: Positive for Pressure (And squeezing, like a band around her chest) Location: Substernal (With radiation up into the jaw and neck) Current Severity: Moderate Maximum Severity: Moderate Worsened By: Nothing Relieved By: Nothing (Has not tried any medications) Associated Symptoms: Positive for Dyspnea (A little); Negative for Nausea, Vomiting, Diaphoresis, Cough, Lightheadedness, Acid Reflux and Palpitations Narrative Narrative: Patient with onset of chest discomfort at rest, she has been feeling well lately prior to this. States she was sitting outside and resting when it started. It has been present all night when she got up it did not go away so she presents to the ER this morning. No history of heart problems that she knows of although she was here with tachycardia wants, unknown if she had a dysrhythmia or not according to her. She does not follow with a energy trader. She denies any recent leg swelling, she has chronic pain in her legs but nothing new or different than usual, she takes gabapentin for that. She denies any cough or fevers, no loss of taste or smell but she has a funny feeling in her mouth since this chest discomfort started. She denies a history of Covid. She has not been vaccinated, nor has she been around anyone with Covid that she knows of recently. Recent Illness/Hospitalization: No CVD Risk Factors: Positive for Hypertension; Negative for Diabetes, Hypercholes terolemia, Family History 1' </=55 and Smoking PE Risk Factors: Negative for Recent Travel/Surgery, Recent Immobilization, Prior DVT or PE, Cancer and OCP + Smoking + >/=35 [facility] Medical History Hypertension Hypothyroidism Home Medications amlodipine 5 mg tablet 5 mg PO DAILY #30 tab 10/16/19 [Rx Last Taken Unknown] carvedilol 3.125 mg tablet 3.125 mg PO BID #60 tab 10/16/19 [Rx Last Taken Unknown] levothyroxine 88 mcg PO DAILY 05/26/20 [History Last Taken Unknown] gabapentin 100 mg PO QHS 02/27/21 [History Last Taken Unknown] Allergy/AdvReac Type Severity Reaction Status Date / Time No Known Allergies Allergy Verified 02/27/21 07:22 Social History Smoking Status: Never smoker ROS ROS ED Constitutional Constitutional ED: Denies chills or fever(s) Eyes Eyes: Denies change in vision or diplopia ENT ENT ED: Denies rhinorrhea or sore throat Cardiovascular Cardiovascular: Reports as per HPI and chest pain; Denies leg edema or palpitations Respiratory/Chest Respiratory/Chest: Reports as per HPI and dyspnea; Denies cough Gastrointestinal Gastrointestinal: Denies abdominal pain, diarrhea, nausea or vomiting Genitourinary Genitourinary ED: Denies dysuria or hematuria Musculoskeletal Musculoskeletal: Denies back pain or neck pain Integumentary Denies abscess or rash Neurologic Neurologic: Denies headache(s), paresthesias or weakness Psychiatric Psychiatric: Denies anxiety or suicidal thoughts EXAM Physical Exam Const Vital Signs: 02/27/21 07:18 02/27/21 07:33 02/27/21 08:11 Temperature 98.2 F Temperature Source Oral Pulse Rate 109 H 77 Respiratory Rate 16 Blood Pressure 178/91 H 129/70 H Blood Pressure Mean 120 Pulse Ox 97 98 Oxygen Delivery Method Room Air Room Air 02/27/21 08:23 Temperature Temperature Source Pulse Rate 88 Respiratory Rate 14 Blood Pressure 129/70 H Blood Pressure Mean 89 Pulse Ox 95 Oxygen Delivery Method Room Air Positive well nourished and well developed General Appearance ED: well developed and NAD HEENT Reports moist mucous membranes normocephalic and atraumatic Eyes PERRL and EOMs intact bilaterally Neck full ROM, no lymphadenopathy, supple and no JVD Resp normal respiratory effort and clear to auscultation bilaterally Cardio regular rate, regular rhythm and no murmurs GI non-tender and non-distended Auscultation: normoactive bowel sounds Palpation: soft Back/Spine no CVA tenderness General Back: other FROM Extremity normal to inspection and no calf tenderness General Extremety ED: Negative for edema, pulses abnormal or tenderness General Extremity: Negative for edema or pulses abnormal Neuro oriented x3, CN's II-XII intact bilaterally and no sensory deficits noted Sensorium / Orientation: awake and alert Motor Exam: strength 5/5 throughout Skin no rashes or lesions noted and no wounds Heart Score History: Highly Suspicious ECG: Normal Age: >/= 65 years Risk Factors: 1 or 2 Risk Factors Troponin: </= Normal Limit Score: 5 MDM MDM MDM Narrative Medical decision making narrative: Patient's pain is much improved after nitroglycerin. Concerned about her history, she has not had a stress test in a long time, she is clinically hemodynamically stable so plan is for admission and further risk ratification, evaluation, and testing. Discussed with hospitalist. Aspirin given. Lab Data Attestation: I reviewed the patient's lab results. Labs: Laboratory Results - last 24 hr 02/27/21 02/27/21 02/27/21 07:20 07:25 07:25 WBC 5.6 RBC 4.56 Hgb 13.2 Hct 40.9 MCV 89.7 MCH 28.9 MCHC 32.3 RDW Std Deviation 44.5 H RDW Coeff of Claude 13.5 Plt Count 185 MPV 10.1 Immature Gran % (Auto) 0.400 Neut % (Auto) 59.6 Lymph % (Auto) 26.8 Larimer % (Auto) 10.6 H Eos % (Auto) 2.2 Baso % (Auto) 0.4 Absolute Neuts (auto) 3.3 Absolute Lymphs (auto) 1.49 Nucleated RBC % 0 APTT 28.9 Sodium 142 Potassium 3.8 Chloride 107 Carbon Dioxide 27.0 Anion Gap 8 BUN 12 Creatinine 1.07 H Estim Creat Clear Calc 33.72 Est GFR (MDRD) Af Amer 64 Est GFR (MDRD) Non-Af 53 L BUN/Creatinine Ratio 11.2 Glucose 132 H Calcium 8.9 Troponin I < 0.015 Radiography Chest X-Ray - ED: 1 View, Read by ED Physician and No Acute Disease EKG Initial EKG: Attestation: I personally reviewed and interpreted this EKG as follows: Interpretation: Sinus Rhythm, No Acute Injury Pattern and Non-Specific ST Changes Discharge Plan Dx/Rx/DC Orders Clinical Impression: Chest pain Disposition Disposition: Acute Care [facility]
[2021-02-27] MEDS: Aspirin 81 MG TAB.CHEW 324 MG PO (08:07)
[2021-02-27] MEDS: Nitroglycerin SL (ED/IMG/CATH) 0.4 MG TABLET SL ×2 (08:11→08:26)
[2021-02-27] MEDS: 0.9% Normal Saline 1,000 ML 150 ML IV (08:12)
[2021-02-27 08:16] LABS: Partial Thromboplast Time 28.9 Seconds (24.1-36.2)
--- NOTE | 2021-02-27 08:33 | HP.PCM.HOS_ITS ---
HPI - General General Date of Admission: 02/27/21 HPI Narrative BUD DIAMOND, is a 80 F with a PMH as outlined who presents with a complaint of chest pain. CHest pain started one night prior to admission and persisted throughout hte night, with associated pressure, and squeezing around her chest. Pain radiated up her neck and jaw. She has no history of chest pain or any cardiac problems. She denied any shortness of breath, palpitations, dizziness, tachycardia, nausea or vomiting. Review of systems was otherwise negative. Vitals in the ED showed temp of 98.2F, VT of 109, RR of 16 and BP of 178/91. Both CNC and BMP were unremarkable, and EKG showed no acute ST changes. CXR showed no acute cardiopulmonary process. She is being admitted to be managed for chest pain to r/o ACS. [facility] Medical History Hypertension Hypothyroidism Home Medications amlodipine 5 mg tablet 5 mg PO DAILY #30 tab 10/16/19 [Rx Last Taken 02/27/21] carvedilol 3.125 mg tablet 3.125 mg PO BID #60 tab 10/16/19 [Rx Last Taken 02/27/21] levothyroxine 88 mcg PO DAILY 05/26/20 [History Last Taken 02/27/21] gabapentin 100 mg PO QHS 02/27/21 [History Last Taken 02/26/21] Allergy/AdvReac Type Severity Reaction Status Date / Time No Known Allergies Allergy Verified 02/27/21 07:22 Social History Smoking Status: Never smoker ROS Constitutional Constitutional: Denies anorexia, chills, fatigue, fever(s), malaise or weakness Eyes Eyes: Denies change in vision, discharge from eye(s) or double vision ENT HEENT: Denies dysphagia, headache(s) or nasal congestion Cardiovascular Cardiovascular: Reports chest pain; Denies claudication, dyspnea on exertion, edema, lightheadedness, orthopnea, palpitations, paroxysmal nocturnal dyspnea, rapid heart rate or syncope Respiratory/Chest Respiratory/Chest: Denies cough, dyspnea, hemoptysis, productive cough, shortness of breath at rest or shortness of breath with exertion Gastrointestinal Gastrointestinal: Denies abdominal pain, coffee ground emesis, constipation, diarrhea, nausea or vomiting Genitourinary Genitourinary: Denies burning urination, difficulty urinating, dysuria or urinary frequency Musculoskeletal Musculoskeletal: Denies arthralgias or back pain Neurologic Neurologic: Denies abnormal gait, dizziness or focal weakness Psychiatric Psychiatric: Denies anxiety Endocrine Endocrinology: Denies change in body appearance Hematologic/Lymphatic Hematologic/Lymphatic: Denies anemia Allergic/Immunologic Allergic/Immunologic: Denies asthma Vital Signs Vital Signs Vital Signs: 02/27/21 07:18 02/27/21 07:33 02/27/21 08:11 Temperature 98.2 F Temperature Source Oral Pulse Rate 109 H 77 Respiratory Rate 16 Blood Pressure 178/91 H 129/70 H Blood Pressure Mean 120 Pulse Ox 97 98 Oxygen Delivery Method Room Air Room Air 02/27/21 08:23 02/27/21 08:26 Temperature Temperature Source Pulse Rate 88 85 Respiratory Rate 14 Blood Pressure 129/70 H 129/70 H Blood Pressure Mean 89 Pulse Ox 95 Oxygen Delivery Method Room Air Weight Weight: 155 lb 3.287 oz Body Mass Index (BMI) 28.3 Physical Exam Const Negative for alert or oriented x3 General Appearance: Negative for cooperative HEENT normocephalic, head/scalp atraumatic, hearing grossly normal bilaterally and moist oral mucous membranes Eyes PERRL, EOMs intact bilaterally and conjunctivae normal Neck no lymphadenopathy and supple Resp normal respiratory effort, no retractions, no use of accessory muscles and clear to auscultation bilaterally Cardio regular rate, regular rhythm, S1 normal heart sound, S2 normal heart sound and no murmurs GI normal to inspection, nondistended, normoactive bowel sounds, soft to palpation, non-tender and non-distended Extremity normal to inspection, full ROM and no clubbing, cyanosis or edema Peripheral Pulses: Yes pulses 2+ throughout Skin no rashes or lesions noted Neuro oriented x3 Sensorium / Orientation: awake and alert Psych affect normal Results Lab / Micro Data Result Diagrams: 02/27/21 07:25 02/27/21 07:25 Labs: Laboratory Results - last 24 hr 02/27/21 02/27/21 02/27/21 07:20 07:25 07:25 WBC 5.6 RBC 4.56 Hgb 13.2 Hct 40.9 MCV 89.7 MCH 28.9 MCHC 32.3 RDW Std Deviation 44.5 H RDW Coeff of Claude 13.5 Plt Count 185 MPV 10.1 Immature Gran % (Auto) 0.400 Neut % (Auto) 59.6 Lymph % (Auto) 26.8 Stanley % (Auto) 10.6 H Eos % (Auto) 2.2 Baso % (Auto) 0.4 Absolute Neuts (auto) 3.3 Absolute Lymphs (auto) 1.49 Nucleated RBC % 0 APTT 28.9 Sodium 142 Potassium 3.8 Chloride 107 Carbon Dioxide 27.0 Anion Gap 8 BUN 12 Creatinine 1.07 H Estim Creat Clear Calc 33.72 Est GFR (MDRD) Af Amer 64 Est GFR (MDRD) Non-Af 53 L BUN/Creatinine Ratio 11.2 Glucose 132 H Calcium 8.9 Troponin I < 0.015 Radiology Impression Chest X-Ray 02/27/21 07:27 IMPRESSION: No acute thoracic pathology. Electronically Signed: Lm Springer MD at 8:26 EDT Tel , Service support , Assessment & Plan Assessment/Plan (1) Chest pain: PLAN: #Chest pain to r/o ACS * admit to PCu * initial troponin was negative * EKG showed no acute ST changes * cycle troponins * SL nitroglyceirn, PO aspirin 81mg daily * for stress test tomorrow if troponins are negative. * * #Hypertension; on amlodipine and carvedilol #Hypothyroidism; on synthroid DVT prophylaxis: lovenox Code status: full code * Patient counseled about different between full code, DNR CCA and DNR CCA. Patient elects to be full code. * Total eywg-hb-usef time 16 minutes. Charges/Coding Visit Charges OBSV E&M: 77838 Initial observation care L2 Procedures Hospitalists Procedures: 84168 Advncd Care Plan 30 Min
--- NOTE | 2021-02-27 10:29 | EKG12_ITS ---
Test Reason : AM EKG Blood Pressure : / mmHG Vent. Rate : 070 BPM Atrial Rate : 070 BPM P-R Int : 190 ms QRS Dur : 092 ms QT Int : 408 ms P-R-T Axes : 058 032 048 degrees QTc Int : 440 ms Normal sinus rhythm Normal ECG When compared with ECG of 27-FEB-2021 10:36, MANUAL COMPARISON REQUIRED, DATA IS UNCONFIRMED Confirmed by MADELEINE HOPSON, REGINO ([id number]), deputy editor in chief SHELLY SOLIS ([id number]) on 03/01/2021 9:36:02 AM Referred By: REUBEN Confirmed By:REGINO SALVADOR MD
[2021-02-27] MEDS: Enoxaparin 40 MG/0.4 ML Syringe SC (14:30)
[2021-02-27] MEDS: Calcium Carbonate 500 MG Tablet 1000 MG PO (20:37)
[2021-02-27] MEDS: Gabapentin 100 MG Capsule PO (21:10)
[2021-02-27] MEDS: Carvedilol 3.125 MG TABLET PO (21:10)
[2021-02-28] VITALS (7 sets, daily range): BP systolic 108–157; BP diastolic 61–77; PULSE 66–87; RESP 16–18; TEMP 36–36.7; O2SAT 92–98
--- NOTE | 2021-02-28 05:00 | EKG12_ITS ---
Test Reason : CP ADMIT Blood Pressure : / mmHG Vent. Rate : 065 BPM Atrial Rate : 065 BPM P-R Int : 182 ms QRS Dur : 090 ms QT Int : 414 ms P-R-T Axes : 069 022 050 degrees QTc Int : 430 ms Normal sinus rhythm Normal ECG When compared with ECG of 27-FEB-2021 07:22, MANUAL COMPARISON REQUIRED, DATA IS UNCONFIRMED Confirmed by MADELEINE HOPSON, REGINO ([id number]), multimedia editor SHELLY SOLIS ([id number]) on 03/01/2021 9:37:46 AM Referred By: REUBEN Confirmed By:REGINO SALVADOR MD
[2021-02-28 05:36] LABS: Absolute Lymphocyte Count 1.39 X10^3/uL (0.83-4.51); Absolute Neutrophil Count 3.2 X10^3/uL (2.0-7.7); Basophil# 0.01 X10^3/uL; Basophil% 0.2 % (0-1); Eosinophil# 0.15 X10^3/uL; Eosinophils% 2.8 % (0-5); Hematocrit 39.2 % (37-47); Hemoglobin 12.6 g/dL (12.0-15.0); Lymphocyte # 1.39 X10^3/ul (0.83-4.51); Lymphocyte % 25.8 % (19-41); Mean Corp Hgb Conc 32.1 g/dL (32-36); Mean Corpuscular Volume 90.3 fL (81-99); Mean Platelet Vol. 10.6 fl (6.2-12.0); Monocyte# 0.63 X10^3/uL; Monocyte% 11.7 % (0-10); NRBC Flagged by Analyzer 0 % (0-5); Neutrophil # 3.18 X10^3/uL (2.7-7.7); Neutrophil % 59.1 % (47-70); Platelet Count 174 K/mm3 (150-450); RBC Distribution Width CV 13.4 % (11.6-14.6); RBC Distribution Width SD 44.4 fl (35.1-43.9); Red Blood Count 4.34 M/mm3 (4.2-5.4); White Blood Count 5.4 K/mm3 (4.4-11.0)
[2021-02-28] MEDS: Levothyroxine 88 MCG Tablet PO (05:47)
[2021-02-28 05:58] LABS: Anion Gap 6 (5-15); BUN 17 mg/dL (7-18); BUN/Creat Ratio 16.5 RATIO (10-20); Calcium,Total 9.1 mg/dL (8.5-10.1); Chloride 106 mmol/L (98-107); Creatinine, Serum 1.03 mg/dL (0.55-1.02); EST Glomerular Filtration Rate 55 mL/min (>60); Est Glom Filt Rate - Afr Amer 66 mL/min (>60); Estimated Creatinine Clearance 35.03 ml/min; Glucose 107 mg/dL (74-106); Potassium 3.8 mmol/L (3.5-5.1); Sodium Level 141 mmol/L (136-145)
[2021-02-28] MEDS: Carvedilol 3.125 MG TABLET PO (10:17)
[2021-02-28] MEDS: amLODIPine 5 MG Tablet PO (10:17)
--- NOTE | 2021-02-28 10:26 | STRESSREP ---
Stress Test Report Pharmacologic myocardial perfusion stress test. 80-year-old lady with a history of chest pain. Stress protocol: Resting EKG demonstrates normal sinus rhythm with a rate of 73 bpm normal intervals are noted. Resting blood pressure is 178/90 mmHg. 0.4 mg of regadenoson was infused per usual protocol followed by rapid venous saline flush pressure injection continuous EKG monitoring was performed. The maximum heart rate attained was 122 bpm which was 86% of max infected heart rate the maximum workload was 1 metabolic equivalent. At rest there were no ST or T wave changes noted to suggest abnormal flow reserve and at peak infusion nonspecific ST changes were noted with did not meet the criteria for ischemia. No clinical angina was noted. Myocardial perfusion protocol. 11.1 mCi of technetium 99m sestamibi was injected at rest. 0.4 mg of regadenoson was infused per usual protocol. At peak infusion 32.6 mCi of technetium 99m sestamibi was injected stress images were obtained stress and rest images were reconstructed and compared in the short axis vertical long and horizontal long axis. Gated images were also obtained for Perfusion SPECT analysis: Review of the stress images demonstrate normal uptake of tracer noted in all areas of the myocardium. The resting images similarly demonstrate normal uptake of tracer noted in all areas of the myocardium. No areas of reversibility are noted suggest ischemia and no previous infarct is noted. Gated SPECT analysis: The gated ejection fraction is 83%. Conclusion: Pharmacologic myocardial perfusion stress test. Preserved ejection fraction.
--- NOTE | 2021-02-28 10:53 | CASEMGMT ---
This RN CM to room with GILES form, explanation done-pt voices understanding, and signs GILES form. Pt has IP vs OBS booklet at bedside. Original to chart and copy to pt. Pt awaiting stress result for discharge. SStaten RN CM
--- NOTE | 2021-02-28 11:34 | PCM.DC ---
Discharge Instructions Diet Discharge Diet: Low fat / Low cholesterol and 2000 mg Sodium Diet Activity Discharge Activity: Return to Normal Activity Follow Up Care Test Results: Test results from this visit will be discussed in further detail at your follow-up appointment, if applicable. Discharge Plan Admission Admit Date/Time: 02/27/21 08:42 Primary Reason for Your Visit: Chest pain Attending Provider: Najma Lee Primary Care Provider: Fozia Mckeon Instructions Patient Instructions: ED Chest Pain, Noncardiac Additional Instructions / Restrictions: Continue to follow a low-salt, low-fat diet. Continue to remain active. Your stress test was negative. This means your chest pain was not likely to be related to the heart. It is likely to be related to acid reflux. You have been prescribed for suppression medications. Discharge Orders/Prescriptions Prescriptions: New pantoprazole 40 mg tablet,delayed release (DR/EC) 40 mg PO DAILY Qty: 30 RF: 0 Continued amlodipine 5 mg tablet 5 mg PO DAILY Qty: 30 RF: 11 carvedilol 3.125 mg tablet 3.125 mg PO BID Qty: 60 RF: 0 levothyroxine 25 MCG tablet 88 mcg PO DAILY RF: 0 gabapentin 100 mg capsule 100 mg PO QHS RF: 0 Referrals / Follow Up: Fozia Mckeon DO [Primary Care Provider] - Within 2 Weeks Disposition Disposition (needs filled in before D/C Order can be placed): Home, self care
--- NOTE | 2021-02-28 11:38 | DS.PCM_ITS ---
Providers Date of Admission: 02/27/21 Date of Discharge: 02/28/21 Primary Care Physician: Dr. Fozia Mckeon DO Reason For Visit: CHEST PAIN Diagnosis Discharge Diagnosis (1) Chest pain: Status: Resolved Code(s): R07.9 - Chest pain, unspecified Medications at Discharge Home Medications amlodipine 5 mg tablet 5 mg PO DAILY #30 tab 10/16/19 carvedilol 3.125 mg tablet 3.125 mg PO BID #60 tab 10/16/19 levothyroxine 88 mcg PO DAILY 05/26/20 gabapentin 100 mg PO QHS 02/27/21 pantoprazole 40 mg PO DAILY #30 tab 02/28/21 Hospital Course Operations None Procedures Stress test Summary of Care Provided Minutes Spent on Discharge: 40 Hospital Course: 80-year-old female with past medical history of hypertension hypothyroidism who presented with a 1 day history of chest pain that was substernal, squeezing, radiated to her neck and jaw. Denied any diaphoresis or shortness of breath. Patient's admitting EKG was unremarkable. Troponins were negative. She was admitted to the telemetry floor and monitored with no acute events. She underwent stress test that was negative. On the day of discharge, patient's physical exam was significant for some slight tenderness along the right substernal border suggestive of possible costochondritis. Patient was encouraged to take Tylenol as needed for pain. Patient was also discharged on a trial of PPI. Physical Exam Narrative Physical exam: General: Alert, Oriented x3, Cooperative, No apparent distress, Well developed HEENT: Atraumatic Oral: Moist Mucosa Neck: Supple Lungs: Clear to auscultation, slight tenderness on palpating the right lower sternal border Cardiovascular: HS I+II, regular, no murmurs Abdomen: Bowel Sounds Present, Soft, Non Tender Extremities: No edema Skin: No rashes, No breakdown Neurological: Grossly intact Psych/Mental Status: Appropriate Weight / BMI Weight Weight: 68.855 kg Body Mass Index (BMI) 27.7 ABG / Lab / Microbiology Data Result Diagrams: 02/28/21 05:00 02/28/21 05:00 Laboratory: Laboratory Results - last 24 hr 02/27/21 02/28/21 02/28/21 13:05 05:00 05:00 WBC 5.4 RBC 4.34 Hgb 12.6 Hct 39.2 MCV 90.3 MCH 29.0 MCHC 32.1 RDW Std Deviation 44.4 H RDW Coeff of Claude 13.4 Plt Count 174 MPV 10.6 Immature Gran % (Auto) 0.400 Neut % (Auto) 59.1 Lymph % (Auto) 25.8 [place] % (Auto) 11.7 H Eos % (Auto) 2.8 Baso % (Auto) 0.2 Absolute Neuts (auto) 3.2 Absolute Lymphs (auto) 1.39 Nucleated RBC % 0 Sodium 141 Potassium 3.8 Chloride 106 Carbon Dioxide 29.0 Anion Gap 6 BUN 17 Creatinine 1.03 H Estim Creat Clear Calc 35.03 Est GFR (MDRD) Af Amer 66 Est GFR (MDRD) Non-Af 55 L BUN/Creatinine Ratio 16.5 Glucose 107 H Calcium 9.1 Troponin I < 0.015 D/C Instructions Discharge Diet: Low fat / Low cholesterol and 2000 mg Sodium Diet Meaningful Use Info Meaningful Use Diagnoses (Choose all that apply): None applicable Discharge Plan Admission Admit Date/Time: 02/27/21 08:42 Primary Reason for Your Visit: Chest pain Attending Provider: Najma Lee Primary Care Provider: Fozia Mckeon Instructions Patient Instructions: ED Chest Pain, Noncardiac Additional Instructions / Restrictions: Continue to follow a low-salt, low-fat diet. Continue to remain active. Your stress test was negative. This means your chest pain was not likely to be related to the heart. It is likely to be related to acid reflux. You have been prescribed for suppression medications. Patient Problems: Altered Health Status related to Hospitalization Patient Goals: *Optimal Level of Health *Keep Appointments *Medication Compliance *Remain Safe Discharge Orders/Prescriptions Prescriptions: New pantoprazole 40 mg tablet,delayed release (DR/EC) 40 mg PO DAILY Qty: 30 RF: 0 Continued amlodipine 5 mg tablet 5 mg PO DAILY Qty: 30 RF: 11 carvedilol 3.125 mg tablet 3.125 mg PO BID Qty: 60 RF: 0 levothyroxine 25 MCG tablet 88 mcg PO DAILY RF: 0 gabapentin 100 mg capsule 100 mg PO QHS RF: 0 Referrals / Follow Up: Fozia Mckeon DO [Primary Care Provider] - Within 2 Weeks Disposition Disposition (needs filled in before D/C Order can be placed): Home, self care Charges/Coding Visit Charges OBSV E&M: 41243 Observation care discharge
== END 2021-02-28 13:20 | disposition home or self-care (01) ==
LOC: ED 08:44 → PCU 02-28 07:05
PROVIDERS: Admitting Provider Student in an Organized Health Care Education/Training Program; Emergency Provider Emergency Medicine; PCP Internal Medicine; Visit Provider Internal Medicine
DX: R07.89 Other chest pain (principal); R00.0 Tachycardia, unspecified; E03.9 Hypothyroidism, unspecified; I10 Essential (primary) hypertension; Z79.899 Other long term (current) drug therapy
CPT/HCPCS: 36415; 71045; 78452; 80048; 84484; 85025; 85730; 93005; 93017; 96360; 96372; 99218; 99285; A9500; J7030; A4216; G0378; J2785

== ENCOUNTER → 2021-06-07 12:23 | Outpatient (CLI) | payer MEDICARE, OTHER, SELFPAY | PROVIDERS: Visit Provider Registered Nurse | DX: R39.9 Unspecified symptoms and signs involving the genitourinary system (principal) | CPT/HCPCS: 87086; 87088; 87186 ==

== ENCOUNTER → 2022-01-02 | Outpatient (CLI) | payer MEDICARE, OTHER, SELFPAY ==
[2022-01-02 12:12] LABS: Absolute Lymphocyte Count 1.01 X10^3/uL (0.83-4.51); Absolute Neutrophil Count 3.2 X10^3/uL (2.0-7.7); Basophil# 0.02 X10^3/uL; Basophil% 0.4 % (0-1); Eosinophil# 0.11 X10^3/uL; Eosinophils% 2.3 % (0-5); Hematocrit 42.8 % (37-47); Hemoglobin 13.7 g/dL (12.0-15.0); Lymphocyte # 1.01 X10^3/ul (0.83-4.51); Mean Corpuscular Volume 90.7 fL (81-99); Mean Platelet Vol. 11.1 fl (6.2-12.0); Monocyte# 0.45 X10^3/uL; Monocyte% 9.3 % (0-10); NRBC Flagged by Analyzer 0 % (0-5); Neutrophil # 3.22 X10^3/uL (2.7-7.7); Neutrophil % 66.8 % (47-70); Platelet Count 192 K/mm3 (150-450); RBC Distribution Width SD 46.8 fl (35.1-43.9); Red Blood Count 4.72 M/mm3 (4.2-5.4); White Blood Count 4.8 K/mm3 (4.4-11.0)
[2022-01-02 12:32] LABS: PTHIN 86.8 pg/mL (18.4-80.1)
[2022-01-02 12:36] LABS: Vitamin D,25 Hydroxy 43.6 ng/mL
[2022-01-02 12:44] LABS: Microalbumin,Random Urine 11.8 mg/L (NO RANGE EST.); Microalbumin:Creatinine Ratio 28.2 mg/g CRE (<30 mg/g CRE)
[2022-01-02 12:56] LABS: AST(SGOT) 30 U/L (15-37); Alanine Aminotransfer ALT/SGPT 26 U/L (13-56); Albumin, Serum 3.7 g/dL (3.2-5.0); Alkaline Phosphatase 57 U/L (45-117); Anion Gap 6 (5-15); BUN 11 mg/dL (7-18); BUN/Creat Ratio 11.1 RATIO (10-20); Calcium,Total 8.7 mg/dL (8.5-10.1); Chloride 107 mmol/L (98-107); Cholesterol 260 mg/dL (200); Creatinine, Serum 0.99 mg/dL (0.55-1.02); EST Glomerular Filtration Rate 57 mL/min (>60); Est Glom Filt Rate - Afr Amer 69 mL/min (>60); Globulin 3.7 g/dL (2.2-4.2); Glucose 119 mg/dL (74-106); High Density Lipoprotein 39 mg/dL; Magnesium 2.2 mg/dL (1.6-2.6); Potassium 3.9 mmol/L (3.5-5.1); Protein, Total 7.4 g/dL (6.4-8.2); Sodium Level 141 mmol/L (136-145); Thyroid Stim Hormone (TSH) 0.21 uIU/mL (0.358-3.74); Triglycerides 210 mg/dL; Very Low Density Lipoprotein 42 mg/dL (5-40)
== END | disposition home or self-care (01) ==
LOC: MTLAB 09:37
PROVIDERS: PCP Family Medicine; Referring Provider Family Medicine; Visit Provider Family Medicine
DX: N18.31 Chronic kidney disease, stage 3a (principal); N25.81 Secondary hyperparathyroidism of renal origin; I12.9 Hypertensive chronic kidney disease with stage 1 through stage 4 chronic kidney disease, or unspecified chronic kidney disease; M25.562 Pain in left knee
CPT/HCPCS: 36415; 80053; 80061; 82043; 82306; 82570; 83735; 83970; 84443; 85025

== ENCOUNTER → 2022-01-05 | Outpatient (CLI) | payer MEDICARE, OTHER, SELFPAY ==
--- NOTE | 2022-01-05 13:34 | US_ITS ---
STUDY: SUPERFICIAL ULTRASOUND - LEFT POPLITEAL FOSSA. REASON FOR EXAM: Female, 81 years old. LEFT KNEE/POPLITEAL FOSSA TECHNIQUE: A superficial ultrasound was performed with real-time and static cifuentes-scale imaging. COMPARISON: None. FINDINGS: Multiple images were obtained of the left popliteal fossa. There is a 7.6 cm x 4.3 cm x 2.7 cm septated cystic structure in the popliteal fossa in keeping with a AGUILAR-type cyst. 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 Electronically Signed: Franco Garcia MD at 15:37 EDT ,
== END | disposition home or self-care (01) ==
LOC: US 13:33
PROVIDERS: PCP Family Medicine; Referring Provider Family Medicine; Visit Provider Family Medicine
DX: M71.22 Synovial cyst of popliteal space [Baker], left knee (principal)
CPT/HCPCS: 76882

== ENCOUNTER → 2022-05-05 | Outpatient (CLI) | payer MEDICARE, OTHER, SELFPAY ==
[2022-05-05 10:20] LABS: Absolute Lymphocyte Count 1.15 X10^3/uL (0.83-4.51); Absolute Neutrophil Count 2.5 X10^3/uL (2.0-7.7); Basophil# 0.02 X10^3/uL; Basophil% 0.5 % (0-1); Eosinophil# 0.09 X10^3/uL; Eosinophils% 2.2 % (0-5); Hematocrit 38.8 % (37-47); Hemoglobin 12.5 g/dL (12.0-15.0); Lymphocyte # 1.15 X10^3/ul (0.83-4.51); Lymphocyte % 27.6 % (19-41); Mean Corp Hgb Conc 32.2 g/dL (32-36); Mean Corpuscular Hgb 30.3 pg (27.0-32.0); Mean Corpuscular Volume 94.2 fL (81-99); Mean Platelet Vol. 11.4 fl (6.2-12.0); Monocyte% 9.6 % (0-10); NRBC Flagged by Analyzer 0 % (0-5); Neutrophil # 2.49 X10^3/uL (2.7-7.7); Neutrophil % 59.9 % (47-70); Platelet Count 166 K/mm3 (150-450); RBC Distribution Width CV 14.9 % (11.6-14.6); RBC Distribution Width SD 51.6 fl (35.1-43.9); Red Blood Count 4.12 M/mm3 (4.2-5.4); White Blood Count 4.2 K/mm3 (4.4-11.0)
[2022-05-05 10:34] LABS: ALB/GLOB Ratio 1.1 RATIO (0.9-2.4); AST(SGOT) 21 U/L (15-37); Alanine Aminotransfer ALT/SGPT 18 U/L (13-56); Albumin, Serum 3.7 g/dL (3.2-5.0); Alkaline Phosphatase 49 U/L (45-117); Anion Gap 6 (5-15); BUN 16 mg/dL (7-18); Calcium,Total 9.2 mg/dL (8.5-10.1); Chloride 107 mmol/L (98-107); Creatinine, Serum 1.45 mg/dL (0.55-1.02); EST Glomerular Filtration Rate 37 mL/min (>60); Est Glom Filt Rate - Afr Amer 45 mL/min (>60); Globulin 3.5 g/dL (2.2-4.2); Glucose 105 mg/dL (74-106); Protein, Total 7.2 g/dL (6.4-8.2); Sodium Level 142 mmol/L (136-145)
[2022-05-05 10:56] LABS: Microalbumin,Random Urine 11.1 mg/L (NO RANGE EST.); Microalbumin:Creatinine Ratio 14.6 mg/g CRE (<30 mg/g CRE)
== END | disposition home or self-care (01) ==
LOC: MFPLAB 08:06
PROVIDERS: PCP Family Medicine; Referring Provider Family Medicine; Visit Provider Family Medicine
DX: I10 Essential (primary) hypertension (principal); M48.061 Spinal stenosis, lumbar region without neurogenic claudication
CPT/HCPCS: 36415; 80053; 82043; 82570; 85025

== ENCOUNTER → 2022-08-17 | Outpatient (CLI) | payer MEDICARE, OTHER, SELFPAY ==
[2022-08-17 15:17] LABS: Absolute Lymphocyte Count 1.73 X10^3/uL (0.83-4.51); Absolute Neutrophil Count 3.7 X10^3/uL (2.0-7.7); Basophil# 0.02 X10^3/uL; Basophil% 0.3 % (0-1); Eosinophil# 0.09 X10^3/uL; Eosinophils% 1.5 % (0-5); Hematocrit 41.9 % (37-47); Lymphocyte # 1.73 X10^3/ul (0.83-4.51); Lymphocyte % 28.9 % (19-41); Mean Corpuscular Hgb 29.7 pg (27.0-32.0); Mean Corpuscular Volume 95.9 fL (81-99); Monocyte# 0.44 X10^3/uL; Monocyte% 7.4 % (0-10); NRBC Flagged by Analyzer 0 % (0-5); Neutrophil # 3.69 X10^3/uL (2.7-7.7); Neutrophil % 61.7 % (47-70); Platelet Count 177 K/mm3 (150-450); RBC Distribution Width CV 14.2 % (11.6-14.6); RBC Distribution Width SD 50.5 fl (35.1-43.9); Red Blood Count 4.37 M/mm3 (4.2-5.4)
[2022-08-17 15:42] LABS: Color, Urine Yellow (Yellow); Glucose, Dipstick Normal (Normal); Ketone-Dipstick Negative (Negative); Leukocyte Esterase-Dipstick 500 /ul (Negative); Nitrite-Dipstick Negative (Negative); Occult Blood-Urine Negative /ul (Negative); Protein-Dipstick Negative (Negative); Specific Gravity, Urine 1.015 (1.002-1.030); Urine Bilirubin Dipstick Negative (Negative); Urine Clarity Clear (Clear); Urine Urobilinogen Normal (Normal); Urine pH 6.5 (5.0 - 8.0)
[2022-08-17 15:43] LABS: Microalbumin,Random Urine 10.3 mg/L (NO RANGE EST.); Microalbumin:Creatinine Ratio 16.4 mg/g CRE (<30 mg/g CRE)
[2022-08-17 15:49] LABS: ALB/GLOB Ratio 1.1 RATIO (0.9-2.4); AST(SGOT) 15 U/L (15-37); Alanine Aminotransfer ALT/SGPT 21 U/L (13-56); Albumin, Serum 3.9 g/dL (3.2-5.0); Alkaline Phosphatase 53 U/L (45-117); Anion Gap 7 (5-15); BUN 18 mg/dL (7-18); BUN/Creat Ratio 12.5 RATIO (10-20); Calcium,Total 9.6 mg/dL (8.5-10.1); Chloride 103 mmol/L (98-107); Creatinine, Serum 1.44 mg/dL (0.55-1.02); EST Glomerular Filtration Rate 37 mL/min (>60); Est Glom Filt Rate - Afr Amer 45 mL/min (>60); Globulin 3.4 g/dL (2.2-4.2); Glucose 144 mg/dL (74-106); Potassium 4.4 mmol/L (3.5-5.1); Protein, Total 7.3 g/dL (6.4-8.2); Sodium Level 139 mmol/L (136-145)
== END | disposition home or self-care (01) ==
LOC: MTLAB 13:04
PROVIDERS: PCP Family Medicine; Referring Provider Family Medicine; Visit Provider Family Medicine
DX: N18.32 Chronic kidney disease, stage 3b (principal); Z87.898 Personal history of other specified conditions
CPT/HCPCS: 36415; 80053; 81002; 82043; 82570; 85025

== ENCOUNTER 2022-09-19 09:15 | Inpatient (IN) | payer MEDICARE, OTHER, SELFPAY ==
[2022-09-19] VITALS (16 sets, daily range): BP systolic 90–181; BP diastolic 60–92; PULSE 60–79; RESP 14–18; TEMP 36.2–36.9; O2SAT 94–100; BMI 28.1
--- NOTE | 2022-09-19 09:33 | RAD_ITS ---
STUDY: X-RAY CHEST REASON FOR EXAM: Female, 81 years old. Chest pain TECHNIQUE: Single AP portable view of the chest. COMPARISON: Comparison is made with prior study dated 02/27/2021. FINDINGS: EKG electrodes are seen. Mild increased linear markings at the lung bases suggests a mild degree of bibasilar linear atelectasis. There is no demonstrated pleural abnormality. Normal size heart. Normal mediastinum and zaida. Normal visualized pulmonary arteries. Normal visualized aortic arch and descending thoracic aorta. There are diffuse degenerative changes of the visualized thoracic spine. Normal visualized ribs, clavicles, and shoulders. There is no demonstrated abnormality of the visualized soft tissue structures of the upper abdomen. RAD/Chest 1 View (Portable) IMPRESSION: Findings suggestive of a mild degree of linear bibasilar atelectasis. Electronically Signed: Franco Garcia MD at 10:41 EST ,
--- NOTE | 2022-09-19 09:36 | ED.VIS.CHEST ---
HPI History of Present Illness Chief Complaint: Chest Pain Informant: patient Narrative Narrative: Patient is an 81-year-old female presenting with chest pain. Chest pain woke her up from sleep around 6 AM. She states she feels that her heart is on fire and has pain in the center of her chest that raise her right arm as well as her chin. She states. She has tingling in her right arm and her chin feels numb. She had a couple episodes of vomiting and dry heaves this morning as well. She states she felt well yesterday. She denies any shortness of breath. She denies any fever or chills. No she had a GI bug at New Year's but that has since resolved. Patient has a history of hypertension, hyperlipidemia, GERD, type 2 diabetes mellitus and hypothyroid. She states she has had stress test and cardiac catheterization before. She denies any history of any stents. She is on any blood thinners. She did not take her regular medications this morning. [facility] Medical History Hypertension Hypothyroidism Home Medications levothyroxine 25 mcg tablet 25 mcg PO SUMOTUWETHFR thyroid 05/26/20 [History Last Taken 09/18/22] gabapentin 100 mg capsule 200 mg PO BID leg cramps 02/27/21 [History Last Taken 09/18/22] amlodipine 2.5 mg tablet 2.5 mg PO DAILY blood pressure 09/19/22 [History Last Taken 09/18/22] carvedilol 3.125 mg tablet 3.125 mg PO DAILY heart 09/19/22 [History Last Taken 09/18/22] cholecalciferol (vitamin D3) 50 mcg (2,000 unit) tablet 50 mcg PO DAILY SUPPLEMENT 09/19/22 [History Last Taken 09/18/22] levothyroxine 50 mcg tablet 50 mcg PO SA thyroid 09/19/22 [History Last Taken 09/16/22] pregabalin 25 mg capsule 50 mg PO BID pain 09/19/22 [History Last Taken 09/18/22] telmisartan 20 mg tablet 20 mg PO DAILY blood pressure 09/19/22 [History Last Taken 09/18/22] Allergy/AdvReac Type Severity Reaction Status Date / Time No Known Allergies Allergy Verified 09/19/22 09:19 Social History Smoking Status: Never smoker ROS ROS ED Constitutional Constitutional ED: Reports chills; Denies fever(s) Eyes Eyes: Denies blurry vision or change in vision ENT ENT ED: Denies rhinorrhea or sore throat Cardiovascular Cardiovascular: Reports as per HPI and chest pain; Denies palpitations Respiratory/Chest Respiratory/Chest: Denies cough, dyspnea or dyspnea on exertion Gastrointestinal Gastrointestinal: Reports nausea and vomiting; Denies abdominal pain Musculoskeletal Musculoskeletal: Reports other Details: right arm pain ; Denies arthralgias or myalgias Integumentary Denies rash Neurologic Neurologic: Reports paresthesias; Denies headache(s) Psychiatric Psychiatric: Denies anxiety Hematologic/Lymphatic Hematologic/Lymphatic: Denies easy bleeding or easy bruising EXAM Physical Exam Const Vital Signs: 09/19/22 09:15 09/19/22 09:18 09/19/22 09:20 Temperature 98.4 F 98.4 F Temperature Source Temporal Temporal Pulse Rate 79 78 Respiratory Rate 17 14 Respiratory Effort Normal Non-Labored Blood Pressure 181/92 H 181/92 H Blood Pressure Mean 121 121 Pulse Ox 95 96 Oxygen Delivery Method Room Air Room Air Oxygen Flow Rate (L/min) 09/19/22 09:42 09/19/22 09:46 09/19/22 09:49 Temperature Temperature Source Pulse Rate 71 66 Respiratory Rate Respiratory Effort Blood Pressure 167/87 H 132/80 H Blood Pressure Mean Pulse Ox 97 Oxygen Delivery Method Nasal Cannula Oxygen Flow Rate (L/min) 2 09/19/22 09:50 09/19/22 10:01 09/19/22 10:40 Temperature 97.2 F L Temperature Source Temporal Pulse Rate 70 61 64 Respiratory Rate 16 Respiratory Effort Blood Pressure 125/76 H 114/71 90/60 Blood Pressure Mean 70 Pulse Ox 96 Oxygen Delivery Method Nasal Cannula Oxygen Flow Rate (L/min) 2 Positive well nourished and well developed General Appearance ED: well developed and NAD; Negative for pallor HEENT Reports dry mucous membranes normocephalic and atraumatic Mouth ED: Yes dry mucous membranes Mouth: dry mucous membranes Eyes PERRL and EOMs intact bilaterally Neck supple and no JVD Chest Wall inspection of chest normal and palpation of chest normal Resp normal respiratory effort and clear to auscultation bilaterally Cardio regular rate, regular rhythm and no murmurs Peripheral Pulses: pulses 2+ throughout GI normal to inspection, nondistended, normoactive bowel sounds GI Narrative: Mild tenderness to palpation epigastric region Extremity normal to inspection General Extremety ED: Negative for edema General Extremity: Negative for edema Neuro oriented x3 Neuro Narrative: No focal deficits appreciated Sensorium / Orientation: awake and alert Psych mental status grossly normal Skin no rashes or lesions noted General Skin Exam: Negative for pallor Heart Score History: Highly Suspicious ECG: Significant ST-Depression Age: >/= 65 years Risk Factors: >/= 3 Risk Factors or History of CAD Troponin: >/=3 x Normal Limit Score: 10 MDM MDM MDM Narrative Medical decision making narrative: Patient is evaluated for sudden onset of chest discomfort that woke her from sleep. She states her heart feels like it is on fire. She has associated right arm pain and tingling as well as numbness in her chin. She also has associated nausea and vomiting. Patient's presentation is highly concerning for ACS. On arrival patient is quite hypertensive however she is given nitroglycerin with improvement of her pain as well as decreasing her blood pressure. Patient has new EKG changes in the anterior septal leads but does not meet ST elevation OR criteria. Case is discussed with cardiology on-call, Dr. Box. He is agreeable with admission and agrees that patient likely does require cardiac catheterization. Her initial high-sensitivity troponin is elevated at 187. She is given aspirin in the ER and Nitropaste is applied as this does improve her pain. Given that she might be cath today he would like to forego any anticoagulation and he will try to add her onto the schedule today. Case is discussed with the hospitalist, Dr. Miller, who is aware of plan and will continue to communicate with cardiology. Patient is admitted to the PCU for NSTEMI. Lab Data Attestation: I reviewed the patient's lab results. Labs: Laboratory Results - last 24 hr 09/19/22 09/19/22 09/19/22 09:28 09:28 09:28 WBC 7.8 RBC 4.59 Hgb 14.2 Hct 43.4 MCV 94.6 MCH 30.9 MCHC 32.7 RDW Std Deviation 50.1 H RDW Coeff of Claude 14.5 Plt Count 199 MPV 10.6 Immature Gran % (Auto) 0.400 Neut % (Auto) 78.7 H Lymph % (Auto) 14.8 L [place] % (Auto) 5.4 Eos % (Auto) 0.6 Baso % (Auto) 0.1 Absolute Neuts (auto) 6.1 Absolute Lymphs (auto) 1.15 Nucleated RBC % 0 PT 12.8 INR 1.0 Sodium 138 Potassium 3.9 Chloride 102 Carbon Dioxide 29.0 Anion Gap 7 BUN 14 Creatinine 1.12 H Estim Creat Clear Calc 31.69 Est GFR (MDRD) Af Amer 60 Est GFR (MDRD) Non-Af 50 L BUN/Creatinine Ratio 12.5 Glucose 172 H Calcium 9.2 Magnesium 2.4 Troponin I High Sens 187 H* Radiography Chest X-Ray - ED: Read by ED Physician, Read by Radiologist and No Acute Disease Diagnostic Testing: Clinical Impression(s) from Imaging Studies Chest X-Ray 09/19/22 09:33 IMPRESSION: Findings suggestive of a mild degree of linear bibasilar atelectasis. Electronically Signed: Franco Garcia MD at 10:41 EST , Rhythm Strip Rhythm Strip: Sinus Rhythm Rate: 75 Ectopy: None EKG Initial EKG: Attestation: I personally reviewed and interpreted this EKG as follows: Interpretation: Sinus Rhythm Comments: Normal sinus rhythm at a rate of 75 bpm Normal axis Normal intervals ST depression and V1 through V3 with no reciprocal changes These ST segment changes are new compared to prior EKG on 02/28/2021 Follow-up EKG: Attestation: I personally reviewed and interpreted this EKG as follows: Interpretation: Sinus Rhythm Comments: Normal sinus rhythm rate of [address] segment changes in V1 and V3 however there is still new T wave inversions, no dynamic changes of any other leads Critical Care Time Critical Care Time: Yes Critical care time (excluding procedures): 30-74 minutes (36), Discussing w/Patient &/or Family/Chemical Machine Tender, Discussing w/Consultants and Arranging Admission or Transfer Discharge Plan Dx/Rx/DC Orders Clinical Impression: Non-ST elevation (NSTEMI) myocardial infarction, Type II diabetes mellitus, uncontrolled, Unstable angina, HLD (hyperlipidemia), HTN (hypertension), Chest pain Disposition Disposition: Acute Care Hospital [facility] Discharge Date/Time: 09/19/22 11:02
[2022-09-19] MEDS: Nitroglycerin SL (ED/IMG/CATH) 0.4 MG TABLET SL ×3 (09:42→09:50)
[2022-09-19] MEDS: Ondansetron 4 MG/2 ML Vial IV (09:42)
[2022-09-19 09:45] LABS: Absolute Lymphocyte Count 1.15 X10^3/uL (0.83-4.51); Absolute Neutrophil Count 6.1 X10^3/uL (2.0-7.7); Basophil# 0.01 X10^3/uL; Basophil% 0.1 % (0-1); Eosinophil# 0.05 X10^3/uL; Eosinophils% 0.6 % (0-5); Hematocrit 43.4 % (37-47); Hemoglobin 14.2 g/dL (12.0-15.0); Lymphocyte # 1.15 X10^3/ul (0.83-4.51); Lymphocyte % 14.8 % (19-41); Mean Corp Hgb Conc 32.7 g/dL (32-36); Mean Corpuscular Hgb 30.9 pg (27.0-32.0); Mean Corpuscular Volume 94.6 fL (81-99); Mean Platelet Vol. 10.6 fl (6.2-12.0); Monocyte# 0.42 X10^3/uL; Monocyte% 5.4 % (0-10); NRBC Flagged by Analyzer 0 % (0-5); Neutrophil # 6.12 X10^3/uL (2.7-7.7); Neutrophil % 78.7 % (47-70); Platelet Count 199 K/mm3 (150-450); RBC Distribution Width CV 14.5 % (11.6-14.6); RBC Distribution Width SD 50.1 fl (35.1-43.9); Red Blood Count 4.59 M/mm3 (4.2-5.4); White Blood Count 7.8 K/mm3 (4.4-11.0)
[2022-09-19] MEDS: 0.9% Normal Saline 1,000 ML 150 ML IV ×2 (09:45→17:00)
[2022-09-19 09:53] LABS: Prothrombin Time (Protime)PT. 12.8 SECONDS (11.7-14.9)
[2022-09-19] MEDS: Nitroglycerin Oint 1 INCH PACKET TD (10:01)
[2022-09-19 10:19] LABS: Anion Gap 7 (5-15); BUN 14 mg/dL (7-18); BUN/Creat Ratio 12.5 RATIO (10-20); Calcium,Total 9.2 mg/dL (8.5-10.1); Chloride 102 mmol/L (98-107); Creatinine, Serum 1.12 mg/dL (0.55-1.02); EST Glomerular Filtration Rate 50 mL/min (>60); Est Glom Filt Rate - Afr Amer 60 mL/min (>60); Estimated Creatinine Clearance 31.69 ml/min; Glucose 172 mg/dL (74-106); Magnesium 2.4 mg/dL (1.6-2.6); Potassium 3.9 mmol/L (3.5-5.1); Sodium Level 138 mmol/L (136-145); Troponin-I HS (w/2H Reflex) 187 pg/mL (3.0-54.0)
--- NOTE | 2022-09-19 10:19 | ED.RN ---
lab called critical of troponin 187. dr wiggins
--- NOTE | 2022-09-19 10:21 | NURSING ---
HOSPITALIST PAGED DR WILSON PAGED
--- NOTE | 2022-09-19 10:32 | NURSING ---
DR WANG FOR DR SILVER
--- NOTE | 2022-09-19 10:37 | NURSING ---
[facility]
--- NOTE | 2022-09-19 11:01 | HP.PCM.HOS_ITS ---
HPI - General General Date of Admission: 09/19/22 Date of Service: 09/19/22 Chief Complaint: Chest pain HPI Narrative BUD DIAMOND, is a 81 F with a history of hypertension, hypothyroidism, CKD stage III, GERD who presented to [facility] 09/19/2022 with chest pain that an onset of 6 AM and woke her up, it was burning and squeezing and in the center of her chest and radiated somewhat to her jaw and to her right arm. She also felt sick to her stomach and was dry heaving. She was brought to the ER where she was noted to have T wave inversions and a troponin of 187, she was given nitroglycerin which improved her pain. Cardiology contacted in the ED and recommended n.p.o. status for possible cath today, decision on anticoagulation pending cath schedule if today versus tomorrow. She was loaded with aspirin. Hospitalist consulted for admission. At the time of his exam chest pain is significantly improved, no shortness of breath and denied having shortness of breath, does still have a little bit of right arm pain. Denied any other complaints at this time [facility] Medical History Hypertension Hypothyroidism Home Medications levothyroxine 25 mcg tablet 25 mcg PO SUMOTUWETHFR thyroid 05/26/20 [History Last Taken 09/18/22] gabapentin 100 mg capsule 200 mg PO BID leg cramps 02/27/21 [History Last Taken 09/18/22] amlodipine 2.5 mg tablet 2.5 mg PO DAILY blood pressure 09/19/22 [History Last Taken 09/18/22] carvedilol 3.125 mg tablet 3.125 mg PO DAILY heart 09/19/22 [History Last Taken 09/18/22] cholecalciferol (vitamin D3) 50 mcg (2,000 unit) tablet 50 mcg PO DAILY SUPPLEMENT 09/19/22 [History Last Taken 09/18/22] levothyroxine 50 mcg tablet 50 mcg PO SA thyroid 09/19/22 [History Last Taken 09/16/22] pregabalin 25 mg capsule 50 mg PO BID pain 09/19/22 [History Last Taken 09/18/22] telmisartan 20 mg tablet 20 mg PO DAILY blood pressure 09/19/22 [History Last Taken 09/18/22] Allergy/AdvReac Type Severity Reaction Status Date / Time No Known Allergies Allergy Verified 09/19/22 09:19 Social History Smoking Status: Never smoker ROS Constitutional Constitutional: Denies change in weight, chills, fever(s) or night sweats Eyes Eyes: Denies change in vision ENT HEENT: Denies headache(s), nasal congestion or sore throat Cardiovascular Cardiovascular: Reports other Details: Substernal burning chest pain Respiratory/Chest Respiratory/Chest: Denies cough or productive cough Gastrointestinal Gastrointestinal: Reports other Details: denies changes in bowel or bladder ; Denies abdominal pain Genitourinary Genitourinary: Reports other Details: denies changes in urination Musculoskeletal Musculoskeletal: Reports other Details: Right arm pain Neurologic Neurologic: Denies dizziness, focal weakness, headache(s), numbness or tingling Psychiatric Psychiatric: Denies anxiety Hematologic/Lymphatic Hematologic/Lymphatic: Denies easy bleeding Allergic/Immunologic Allergic/Immunologic: Reports other Details: denies rashes Vital Signs Vital Signs Vital Signs: 09/19/22 09:15 09/19/22 09:18 09/19/22 09:20 Temperature 98.4 F 98.4 F Temperature Source Temporal Temporal Pulse Rate 79 78 Respiratory Rate 17 14 Respiratory Effort Normal Non-Labored Blood Pressure 181/92 H 181/92 H Blood Pressure Mean 121 121 Pulse Ox 95 96 Oxygen Delivery Method Room Air Room Air Oxygen Flow Rate (L/min) 09/19/22 09:42 09/19/22 09:46 09/19/22 09:49 Temperature Temperature Source Pulse Rate 71 66 Respiratory Rate Respiratory Effort Blood Pressure 167/87 H 132/80 H Blood Pressure Mean Pulse Ox 97 Oxygen Delivery Method Nasal Cannula Oxygen Flow Rate (L/min) 2 09/19/22 09:50 09/19/22 10:01 09/19/22 10:40 Temperature 97.2 F L Temperature Source Temporal Pulse Rate 70 61 64 Respiratory Rate 16 Respiratory Effort Blood Pressure 125/76 H 114/71 90/60 Blood Pressure Mean 70 Pulse Ox 96 Oxygen Delivery Method Nasal Cannula Oxygen Flow Rate (L/min) 2 Weight Weight: 69.8 kg Body Mass Index (BMI) 28.1 Physical Exam Const alert and oriented x3 General Appearance: cooperative and comfortable HEENT normocephalic and head/scalp atraumatic Eyes EOMs intact bilaterally Neck supple Resp normal respiratory effort and clear to auscultation bilaterally Cardio regular rate and regular rhythm GI soft to palpation, non-tender and non-distended Extremity normal to inspection Skin no rashes or lesions noted Neuro moves all extremities Psych affect normal Results Lab / Micro Data Result Diagrams: 09/19/22 09:28 09/19/22 09:28 Labs: Laboratory Results - last 24 hr 09/19/22 09:28: WBC 7.8, RBC 4.59, Hgb 14.2, Hct 43.4, MCV 94.6, MCH 30.9, MCHC 32.7, RDW Std Deviation 50.1 H, RDW Coeff of Claude 14.5, Plt Count 199, MPV 10.6, Immature Gran % (Auto) 0.400, Neut % (Auto) 78.7 H, Lymph % (Auto) 14.8 L, [place] % (Auto) 5.4, Eos % (Auto) 0.6, Baso % (Auto) 0.1, Absolute Neuts (auto) 6.1, Absolute Lymphs (auto) 1.15, Nucleated RBC % 0 09/19/22 09:28: PT 12.8, INR 1.0 09/19/22 09:28: Sodium 138, Potassium 3.9, Chloride 102, Carbon Dioxide 29.0, Anion Gap 7, BUN 14, Creatinine 1.12 H, Estim Creat Clear Calc 31.69, Est GFR (MDRD) Af Amer 60, Est GFR (MDRD) Non-Af 50 L, BUN/Creatinine Ratio 12.5, Glucose 172 H, Calcium 9.2, Magnesium 2.4, Troponin I High Sens 187 H* Radiology Impression Chest X-Ray 09/19/22 09:33 IMPRESSION: Findings suggestive of a mild degree of linear bibasilar atelectasis. Electronically Signed: Franco Garcia MD at 10:41 EST , Assessment & Plan Assessment/Plan (1) Chest pain: PLAN: Plan #Chest pain/NSTEMI Possibly type I Substernal chest pain that was improved with nitroglycerin and EKG changes with elevated troponin of 187 Cardiology contacted in the ED, n.p.o. for possible cath today Will trend troponin Loaded with aspirin, aspirin 81 mg daily, statin Lipid panel and A1c in the a.m. Continue beta-desean, hold home ARB due to her CKD and need for heart cath Echo ordered #CKD stage III unclear subtype Appears at baseline, given pending cath continue fluids and hold telmisartan Trend BMP #Hypothyroidism Continue Synthroid TSH in the a.m. #DVT ppx: SCDs pending decision on anticoagulation Denise Miller MD Charges/Coding Visit Charges Inpatient E&M: 07966 Init Hosp L2
--- NOTE | 2022-09-19 11:34 | ECHOD_ITS ---
Reason For Study: CHEST PAIN Procedure This was a 2D Doppler, Color Flow transthoracic echocardiogram. Exam performed portable in patient room. Left Ventricle Normal LV size. Segmental dysfunction with preserved ejection fraction (see wall motion). The estimated ejection fraction is 55 %. Diastolic function is indeterminate. Posterior-Basal: Hypokinetic. Infero-Basal: Hypokinetic. Mid-Posterior: Hypokinetic. Mid-Inferior: Hypokinetic. Right Ventricle Normal RV size. Normal systolic function. Atria Normal left atrium. Normal right atrium. No doppler evidence for ASD. Mitral Valve There is no mitral annular calcification. Normal mitral valve. Mild (1+) mitral valve insufficiency. Tricuspid Valve Normal tricuspid valve. Mild tricuspid valve insufficiency. Right ventricular systolic pressure estimated to be 27 mmHg. Aortic Valve Trisinus/trileaflet aortic valve. Normal aortic valve. Pulmonic Valve The pulmonic valve is not well visualized. Great Vessels Normal sized aortic root. Calcified aortic root. Pericardium/Pleural No pericardial effusion. MMode/2D Measurements & Calculations LVIDd: 4.4 cm IVSd: 0.98 cm Ao root diam: 3.1 cm LVIDs: 2.9 cm LVPWd: 1.0 cm RVDd: 3.3 cm FS: 34.3 % LAV(MOD-bp): 32.1 ml LVAd ap4: 20.8 cm2 LVAd ap2: 19.1 cm2 LAV(MOD-bp) Indexed: 18.8 ml/m2 LVLd ap4: 6.6 cm LVLd ap2: 6.9 cm LAV(MOD-sp2): 27.0 ml EDV(MOD-sp4): 53.1 ml EDV(MOD-sp2): 45.1 ml LAV(MOD-sp4): 33.4 ml EDV(sp4-el): 55.1 ml EDV(sp2-el): 44.9 ml LVAs ap4: 13.0 cm2 LVAs ap2: 11.9 cm2 LVLs ap4: 5.8 cm LVLs ap2: 6.3 cm ESV(MOD-sp4): 24.7 ml ESV(MOD-sp2): 19.2 ml ESV(sp4-el): 24.8 ml ESV(sp2-el): 19.0 ml EF(MOD-sp4): 53.4 % EF(MOD-sp2): 57.5 % EF(sp4-el): 54.9 % SV(MOD-sp4): 28.3 ml SV(MOD-sp2): 25.9 ml SV(sp4-el): 30.2 ml LA dimension(2D): 3.3 cm LA A4 area: 14.2 cm2 RA A4 area: 10.2 cm2 Time Measurements MV dec time: 0.15 sec Doppler Measurements & Calculations MV E max kevin: 83.1 cm/sec Lat Peak E' Kevin: 6.0 cm/sec Med Peak E' Kevin: 7.8 cm/sec MV A max kevin: 88.7 cm/sec E/E' lat: 14.0 E/E' med: 10.7 MV E/A: 0.94 MV dec slope: 545.1 cm/sec2 Ao V2 max: 103.3 cm/sec LV V1 max: 79.5 cm/sec Ao max P.3 mmHg LV V1 max P.5 mmHg Ao V2 mean: 73.9 cm/sec LV V1 mean P.5 mmHg Ao mean P.5 mmHg LV V1 mean: 56.4 cm/sec Ao V2 VTI: 25.7 cm LV V1 VTI: 19.2 cm AV (velocity ratio): 0.75 MR max kevin: 442.8 cm/sec PA V2 max: 79.8 cm/sec TR max kevin: 246.1 cm/sec MR max P.4 mmHg PA V2 mean: 58.4 cm/sec TR max P.2 mmHg ECHO/Echo Complete Interpretation Summary Segmental dysfunction with preserved ejection fraction (see wall motion). The estimated ejection fraction is 55 %. Mild (1+) mitral valve insufficiency. Mild tricuspid valve insufficiency. Calcified aortic root. Right ventricular systolic pressure estimated to be 27 mmHg. Diastolic function is indeterminate. Ordering Physician: Denise Miller Referring Physician: Andrés Sagastume Performed By: Fartun Rios, LEANNE, RVT
[2022-09-19 11:40] LABS: Reflex Troponin-HS? (from REC) Y
[2022-09-19] MEDS: Nitroglycerin (INPATIENT USE) 0.4 MG TAB.SUBL SL ×2 (12:08→12:16)
[2022-09-19 12:22] LABS: Troponin-I HS 1969 pg/mL (3.0-54.0)
--- NOTE | 2022-09-19 13:33 | CON.PCM.CA_ITS ---
Assessment & Plan Assessment/Plan (1) Unstable angina: PLAN: The patient presents with symptoms of ongoing unstable angina pectoris. She has had abnormal cardiac enzymes and an abnormal ECG. She has been treated with aspirin and nitrates. Based upon her ongoing symptoms and objective findings a recommendation has been made to bring the patient to the cardiac catheterization laboratory for further evaluation and care. The procedure and risk were discussed with her. She was agreeable to this approach. (2) Non-ST elevation (NSTEMI) myocardial infarction: PLAN: The patient has objective findings compatible with a non-ST segment elevation [place]. At the present time she will continue to be monitored. This will include follow-up of her cardiac rate, rhythm, cardiac enzymes, ECG, etc. as deemed appropriate. She will be treated medically with aspirin and nitrates. As her blood pressure allows she will be considered for additional medications such as her beta- blockers that she has been on at home-carvedilol 3.125 mg p.o. twice daily. She will also be considered for lipid-lowering therapy with statins. (3) HLD (hyperlipidemia): QUALIFIERS: Hyperlipidemia type: unspecified Qualified Code(s): E78.5 - Hyperlipidemia, unspecified PLAN: The patient's lipids do need to be evaluated. Based upon the concern of underlying cardiovascular disease/CAD she will need to be given consideration to medical therapy with statins. (4) HTN (hypertension): QUALIFIERS: Hypertension type: essential hypertension Qualified Code(s): I10 - Essential (primary) hypertension PLAN: The patient states that her blood pressure has been traditionally elevated and challenging to control. She has been on medical therapy at home with carvedilol, telmisartan, and amlodipine. She will continue medical therapy for her blood pressure as appropriate taking into consideration the effects of nitrates and lower blood pressure. Addt'l Comments The patient's case has been discussed and reviewed with the patient, her spouse, and Dr. Redd of the [facility] emergency department staff. Comment: Time spent in the patient's overall evaluation, examination, review of medical records, documentation, discussion, etc.: 52 minutes. HPI Consult Data Date of Consult: 09/19/22 HPI Narrative HPI Narrative: BUD DIAMOND, is a 81 year old white female who presents for cardiovascular, potation based upon concerns of unstable angina pectoris, non-ST segment elevation [place], superimposed upon a history of hypertension, hypothyroidism, and chronic renal insufficiency. The patient states she awoke this morning with nausea and subsequently noted to have chest burning with radiation to the right upper extremity with right upper extremity associated paresthesias as well as continued nausea, emesis, and the overall sensation of not feeling well. She denied any acute respiratory related issues. There is no report of orthopnea or PND or peripheral pitting edema. She has denied any near-syncope or syncope. She has undergone noninvasive cardiovascular evaluation in the past. She had a transthoracic echocardiogram performed on 09-24-2019 and a stress test performed on 02-28-2021. The results of her studies are noted below. She did not require evaluation in the cardiac catheterization laboratory at that time. Today she presented to the emergency department. Upon presentation to the emergency department she was having continued symptoms. She had a high- sensitivity troponin I level which was elevated at 187. It is subsequently increased to 1969. She had an ECG that demonstrated sinus rhythm with ST and T wave changes: Consider myocardial ischemia: Consider anterior. She had a chest x-ray performed which upon review appeared to demonstrate good inspiration with no obvious acute cardiopulmonary findings. She was treated with nitroglycerin sublingual. She had improvement in her symptoms and her ECG changes. She was subsequently transferred to the PCU for further evaluation and care. There she has had recurrent symptoms requiring recurrent nitroglycerin sublingual. She had also been placed on nitroglycerin paste. As she responds to the nitroglycerin her blood pressure does transiently decrease. She has had follow-up ECGs. Her follow-up ECGs have demonstrated continued sinus rhythm. Her ST and T wave changes appear somewhat less prominent than her original ECG. FORMERLY [facility], 1928–1983 Medical History Hypertension Hypothyroidism Home Medications levothyroxine 25 mcg tablet 25 mcg PO SUMOTUWETHFR thyroid 05/26/20 [History Last Taken 09/18/22] gabapentin 100 mg capsule 200 mg PO BID leg cramps 02/27/21 [History Last Taken 09/18/22] amlodipine 2.5 mg tablet 2.5 mg PO DAILY blood pressure 09/19/22 [History Last T aken 09/18/22] carvedilol 3.125 mg tablet 3.125 mg PO DAILY heart 09/19/22 [History Last Taken 09/18/22] cholecalciferol (vitamin D3) 50 mcg (2,000 unit) tablet 50 mcg PO DAILY SUPPLEMENT 09/19/22 [History Last Taken 09/18/22] levothyroxine 50 mcg tablet 50 mcg PO SA thyroid 09/19/22 [History Last Taken 09/16/22] pregabalin 25 mg capsule 50 mg PO BID pain 09/19/22 [History Last Taken 09/18/22] telmisartan 20 mg tablet 20 mg PO DAILY blood pressure 09/19/22 [History Last Taken 09/18/22] Allergy/AdvReac Type Severity Reaction Status Date / Time No Known Allergies Allergy Verified 09/19/22 09:19 Social History Smoking Status: Never smoker ROS Constitutional Constitutional: Reports as per HPI Eyes Eyes: Reports as per HPI ENT HEENT: Reports as per HPI Cardiovascular Cardiovascular: Reports chest pain at rest, nausea and vomiting Respiratory/Chest Respiratory/Chest: Reports as per HPI Gastrointestinal Gastrointestinal: Reports nausea and vomiting Genitourinary Genitourinary: Reports as per HPI Musculoskeletal Musculoskeletal: Reports as per HPI Integumentary Integumentary: Reports as per HPI Neurologic Neurologic: Reports as per HPI Physical Exam Narrative This is an 81-year-old white female who appears to be awake and alert and uncomfortable at this time. Const alert, oriented x3 and no apparent distress Orientation / Consciousness: awake HEENT normocephalic, head/scalp atraumatic and hearing grossly normal bilaterally Eyes PERRL, EOMs intact bilaterally, conjunctivae normal and no scleral icterus Neck full ROM, supple and no JVD Carotids: normal carotid upstroke Chest inspection of chest normal Resp normal respiratory effort and clear to auscultation bilaterally Cardio regular rate, regular rhythm, S1 normal heart sound and S2 normal heart sound GI normal to inspection, nondistended, normoactive bowel sounds Extremity no pedal edema Skin no rashes or lesions noted Psych mental status grossly normal Risk Stratification Risk Stratification Applicable: Yes Age >/= 65: Yes >/= 3 CAD Risk Factors (HTN, HLD, DM, family hx of CAD, or current smoker): No Aspirin Use in the Past 7 Days: No Severe Angina (>/= episodes in 24 hours): Yes EKG ST Changes >/= 0.5mm: Yes Positive Cardiac Marker: Yes LYNETTE Risk Stratification Score: 4 LYNETTE % Risk: 20% Risk Procedure Criteria Type of Procedure Procedure Type: Elective Elective Risks - COVID COVID Risk Discussion: The surgeon/proceduralist and patient have discussed in detail the risk of exposure to and/or potential harm posed by the COVID-19 virus with having a surgery/procedure at this time versus the risk of delaying the surgery/procedure. It is not possible to know either the risk of delaying the surgery or procedure or chance of getting an infection with perfect accuracy, but a joint decision was made between the patient and the surgeon/proceduralist to proceed at this time with the scheduled surgery/procedure as indicated on the consent form. Objective Data Vital Signs: Vital Signs Temp Pulse Resp BP Pulse Ox O2 Del Method O2 Flow Rate 98.1 F 70 18 155/81 H 96 Nasal Cannula 2 09/19/22 12:00 09/19/22 12:16 09/19/22 12:00 09/19/22 12:16 09/19/22 12:00 09/19/22 12:00 09/19/22 12:00 Oxygen Flow Rate (L/min) 2 Oxygen Delivery Method Nasal Cannula Weight: 153 lb 14.122 oz Body Mass Index (BMI) 28.1 Lab / Micro Data Result Diagrams: 09/19/22 09:28 09/19/22 09:28 Labs: Laboratory Results - last 24 hr 09/19/22 09:28: WBC 7.8, RBC 4.59, Hgb 14.2, Hct 43.4, MCV 94.6, MCH 30.9, MCHC 32.7, RDW Std Deviation 50.1 H, RDW Coeff of Claude 14.5, Plt Count 199, MPV 10.6, Immature Gran % (Auto) 0.400, Neut % (Auto) 78.7 H, Lymph % (Auto) 14.8 L, [place] % (Auto) 5.4, Eos % (Auto) 0.6, Baso % (Auto) 0.1, Absolute Neuts (auto) 6.1, Absolute Lymphs (auto) 1.15, Nucleated RBC % 0 09/19/22 09:28: PT 12.8, INR 1.0 09/19/22 09:28: Sodium 138, Potassium 3.9, Chloride 102, Carbon Dioxide 29.0, Anion Gap 7, BUN 14, Creatinine 1.12 H, Estim Creat Clear Calc 31.69, Est GFR (MDRD) Af Amer 60, Est GFR (MDRD) Non-Af 50 L, BUN/Creatinine Ratio 12.5, Glucose 172 H, Calcium 9.2, Magnesium 2.4, Troponin I High Sens 187 H* 09/19/22 11:51: Troponin I High Sens 1969 H* Cardiology Labs/Tests 09/19/22 09:28: WBC 7.8, RBC 4.59, Hgb 14.2, Hct 43.4, MCV 94.6, MCH 30.9, MCHC 32.7, Plt Count 199, MPV 10.6, Immature Gran % (Auto) 0.400, Neut % (Auto) 78.7 H, Lymph % (Auto) 14.8 L, [place] % (Auto) 5.4, Eos % (Auto) 0.6, Baso % (Auto) 0.1, Absolute Neuts (auto) 6.1, Nucleated RBC % 0 09/19/22 09:28: PT 12.8, INR 1.0 09/19/22 09:28: Sodium 138, Potassium 3.9, Chloride 102, Carbon Dioxide 29.0, Anion Gap 7, BUN 14, Creatinine 1.12 H, Est GFR (MDRD) Af Amer 60, Est GFR (MDRD) Non-Af 50 L, BUN/Creatinine Ratio 12.5, Glucose 172 H, Calcium 9.2, Magnesium 2.4 Rhythm: Sinus rhythm EKG: As noted above ECHO: 09-24-2019 Interpretation Summary The estimated ejection fraction is 65 %. Stage 1 diastolic dysfunction. Trivial mitral valve insufficiency. Trivial tricuspid valve insufficiency. Right ventricular systolic pressure estimated to be 29 mmHg. Compared to echo report dated 12/02/2009, no appreciable changes noted. Stress Test Report Date: 09-24-2019 Procedure: Pharmacologic stress nuclear imaging study? Indications: Chest pain/jaw pain/shoulder pain Consent: Per the patient Procedure: The patient underwent pharmacologic (Regadenoson) evaluation with a peak heart rate of 127 beats per minute (88 %predicted maximal heart rate) and a peak blood pressure of 170/62 mmHg. The baseline ECG demonstrated normal sinus rhythm.? The peak pharmacologic ECG demonstrated no obvious ECG changes. There was an isolated premature ectopic complex during infusion. There was no complaint of chest discomfort during pharmacologic infusion or recovery. The examination was discontinued secondary to completion of protocol. Impression: 1.? Pharmacologic (Regadenoson) evaluation 2.? Peak pharmacologic ECG with no obvious ECG changes. 3.? There was an isolated premature ectopic complex during infusion. 4.? Nuclear images pending Myocardial perfusion imaging study: Technique: The patient was injected with millicuries of technetium 99m Cardiolite and subsequently rest SPECT Cardiolite nuclear imaging was obtained in the horizontal long, vertical long, and short axis views. The patient underwent pharmacologic (Regadenoson) evaluation with a peak heart rate of 127 beats per minute (88 % percent predicted maximal heart rate) and a peak blood pressure of 170/62 mmHg. The patient was injected with millicuries of technetium 99m Cardiolite and subsequently stress SPECT Cardiolite nuclear imaging was obtained in the horizontal long, vertical long, and short axis views.? A gated Cardiolite study at peak stress was obtained. Interpretation: Rest and stress SPECT Cardiolite nuclear imaging status post realignment, normalization, and attenuation correction demonstrate relative uniform tracer uptake and myocardial perfusion appearing within normal limits.? There is end systolic thickening and brightening.? The gated Cardiolite study demonstrates myocardial thickening and inward wall motion.? The reported LVEF is 69 %. Impression: 1.? Rest and stress SPECT Cardiolite nuclear imaging demonstrate relative un iform tracer uptake and myocardial perfusion appearing within normal limits. 2.? The gated Cardiolite study reports an LVEF of 69 %. Stress Test: 02-28-2021 Stress Test Report Pharmacologic myocardial perfusion stress test. 80-year-old lady with a history of chest pain. Stress protocol: Resting EKG demonstrates normal sinus rhythm with a rate of 73 bpm normal intervals are noted.? Resting blood pressure is 178/90 mmHg.? 0.4 mg of regadenoson was infused per usual protocol followed by rapid venous saline flush pressure injection continuous EKG monitoring was performed.? The maximum heart rate attained was 122 bpm which was 86% of max infected heart rate the maximum workload was 1 metabolic equivalent.? At rest there were no ST or T wave changes noted to suggest abnormal flow reserve and at peak infusion nonspecific ST changes were noted with did not meet the criteria for ischemia.? No clinical angina was noted. Myocardial perfusion protocol. 11.1 mCi of technetium 99m sestamibi was injected at rest.? 0.4 mg of regadenoson was infused per usual protocol.? At peak infusion 32.6 mCi of technetium 99m sestamibi was injected stress images were obtained stress and rest images were reconstructed and compared in the short axis vertical long and horizontal long axis.? Gated images were also obtained for Perfusion SPECT analysis: Review of the stress images demonstrate normal uptake of tracer noted in all areas of the myocardium.? The resting images similarly demonstrate normal uptake of tracer noted in all areas of the myocardium.? No areas of reversibility are noted suggest ischemia and no previous infarct is noted. Gated SPECT analysis: The gated ejection fraction is 83%. Conclusion: Pharmacologic myocardial perfusion stress test. Preserved ejection fraction. Radiography Diagnostic Testing: Radiology Impression Chest X-Ray 09/19/22 09:33 IMPRESSION: Findings suggestive of a mild degree of linear bibasilar atelectasis. Electronically Signed: Franco Garcia MD at 10:41 EST ,
--- NOTE | 2022-09-19 16:56 | CL.I_ITS ---
Patient Name: BUD DIAMOND Study Date: 09/19/2022 Performing: Amy Fuentes MD Ht: 62 inches 157.48 cm : 1940 Wt: 153.88 lbs 69.8 kg Age: 81 Gender: female BSA: 1.71 PROCEDURE(S) PERFORMED IC08-(99600)IVUS, CORONARY OR GRAFT, INITIAL VESSEL IC12-([id number])NATANAEL W/WO PTCA, SINGLE CORONARY ARTERY IC13-([id number])NATANAEL W/WO PTCA, EACH ADD'L ART, SAME MAJOR CLINICAL PROFILE AND CO-MORBIDITIES Indications: Suspected CAD Heart Failure: None Stress/Imaging Stress/Image Study Performed: No Angina Classification Anginal Classification w/in 2 Weeks: CCS IV CAD Presentations: Non-STEMI. CONCLUSIONS IVUS ostial LMCA: Eccentric plaque with oblong residual lumen. 55-60% stenosis Successful PTCA/NATANAEL Prox OM1 using Resolute [place] 2.0x15 mm, post-dilated using 2.25 mm balloon Successful PTCA/NATANAEL Mid OM2 using Resolute Joe 2.0x8 mm, post-dilated using 2.25 mm balloon RECOMMENDATIONS ASA Indefinitley Brilinta for at least 12 months DESCRIPTION OF PROCEDURE The patient arrived to the procedure lab. The risks and benefits of the procedure as well as a full description of our services here and current unavailability of surgical backup were fully explained to the patient and/or their significant other prior to the catheterization. The Timeout was completed, verifying the correct patient and procedure. The patient's procedural site was prepped and draped in the usual fashion. Local anesthetic was given subcutaneously to right radial region with Lidocaine 2% Using a modified Seldinger technique,arterial access was obtained via the right radial artery, a 6Fr sheath was inserted. Left Coronary Artery selective angiography was performed in multiple views using a 5 Fr. 4.0 [place] catheter. Right Coronary Artery selective angiography was then performed in multiple views using a 5 Fr. 4.0 [place] catheter. Left Ventriculography was performed in NIÑO projection using a 5 Fr. Pigtail catheter. LV to AO pullback pressures were then recorded.The images were reviewed and options discussed. A decision was then made to proceed with an Intervention, IVUS or other adjunct procedure. XB3 Guide catheter was inserted and engaged into the LCA. JL4 Guide catheter was inserted and engaged into the LCA. RUNTHROUGH Guide wire was advanced to the Left main. IVUS pullback recording was performed on the LEFT MAIN for pre- intervention / lesion assessment. RUNTHROUGH 2 Guide wire was advanced to the 2nd OM. RUNTHROUGH 1 Guide wire was advanced to the Circumflex. 2X8 EMERGE Balloon catheter was inserted. Balloon catheter was advanced across lesion in the second obtuse marginal, proximal OVER RUNTHROUGH 2 PTCA balloon inflated at 6 atms for 6 secs. PTCA balloon inflated at 6 atms for 10 secs. PTCA balloon inflated at 6 atms for 12 secs. PTCA balloon inflated at 6 atms for 8 secs. PTCA balloon inflated at 6 atms for 8 secs. PTCA balloon inflated at 8 atms for 8 secs. Angiogram performed post balloon dilatation. 2.0x20 [place] Balloon catheter was advanced across lesion in the first obtuse marginal, proximal PTCA balloon inflated at 4 atms for 20 secs. 2.0x15 resolute Drug Eluting stent was advanced across the lesion in the first obtuse marginal, proximal. 2.25x8 NC Euphora Balloon catheter was inserted post stent. 2.0x12 Resolute Drug Eluting stent was advanced across the lesion in the second obtuse marginal, mid Drug Eluting stent was removed intact, failed to cross lesion 2.0x8 Emerge Balloon catheter was advanced across lesion in the second obtuse marginal, mid PTCA balloon inflated at 8 atms for 10 secs. PTCA balloon inflated at 12 atms for 22 secs. 2.0x8 Resolute Drug Eluting stent was advanced across the lesion in the second obtuse marginal, mid 2.25x8 NC Euphora Balloon catheter was inserted post stent. Angiogram performed post stent deployment. The arterial sheath was pulled and a TR Band was applied for hemostasis, with 12cc of air INTERVENTION INFORMATION LESION SITE: Left Main (Ostial) PROCEDURE: IVUS for pre PCI assessment of vessel Lesion Devices: Terumo .014 180cm Runthrough Extra Floppy straight Medtronic 6 Fr JL4.0 100cm Guide Catheter IkerChem (volcano) Coronary IVUS Catheter Terumo .014 180cm Runthrough Extra Floppy straight LESION SITE: 1st OM (Proximal) Lesion Complexity: High/C, lesion length: 14 mm, culprit lesion: Yes Pre Stenosis: 100 % Pre intervention LYNETTE flow: 0 PROCEDURE: Drug Eluting Stent with pre and post dilatation Post Stenosis: 0 % Post intervention LYNETTE flow: 3 Lesion Devices: Terumo .014 180cm Runthrough Extra Floppy straight Medtronic 6 Fr JL4.0 100cm Guide Catheter Terumo .014 180cm Runthrough Extra Floppy straight Leonard Sci EMERGE MR 2.00x08 BALLOON Medtronic SC EUPHORA RX 2.0x20 BALLOON Medtronic Resolute Joe RX NATANAEL 2.0x15 Medtronic NC EUPHORA RX 2.25x08 BALLOON LESION SITE: 2nd OM (Mid) Lesion Complexity: Non-High/Non-C, culprit lesion: No Pre Stenosis: 95 % Pre intervention LYNETTE flow: 3 PROCEDURE: Drug Eluting Stent with pre and post dilatation 0 % Post intervention LYNETTE flow: 3 Lesion Devices: Medtronic 6 Fr JL4.0 100cm Guide Catheter Terumo .014 180cm Runthrough Extra Floppy straight Medtronic Resolute [place] RX NATANAEL 2.0x12 Leonard Sci EMERGE MR 2.00x08 BALLOON Medtronic Resolute Joe RX NATANAEL 2.0x08 COMPLICATIONS No Complications PROCEDURE MEDICATIONS Fentanyl 50 mcg IV Versed 1 mg IV Fentanyl 50 mcg IV Versed 2 mg IV Oxygen: 2 L/min via nasal cannula Aspirin (325mg) 1 Tabs PO 09/19/2022 14:08:51 Brilinta 180 mg PO @ 09/19/2022 15:08:07 Heparin given IA 09/19/2022 14:39:26 Heparin 5000 unit(s) IV 09/19/2022 15:08:02 Heparin 2000 unit(s) IV 09/19/2022 15:56:53 Nitro 200 mcg IC 09/19/2022 15:53:43 Verapamil 2.5mg, Ntg 100mcgs, 3000 units of Heparin given IA 09/19/2022 14:39:26 SUMMARY OF HEMODYNAMIC DATA Time AIR REST ECG 14:05:39 AO 127/69 (95) SA 14:41:33 LV 159/-2, 24 14:51:09 LV 158/1, 31 14:51:18 LV 147/3, 29 14:53:11 LV 151/2, 30 14:53:19 LVp 154/0, 31 14:53:24 AOp 152/69 (103) 14:53:31 Signed By Amy Fuentes MD On 09/19/2022 16:55:33 Amy Fuentes MD
[2022-09-19] MEDS: TICAGRELOR 90 MG TABLET PO (21:01)
[2022-09-19] MEDS: Levothyroxine 25 MCG TABLET PO (21:01)
[2022-09-19] MEDS: Atorvastatin Calcium 80 MG Tablet PO (21:01)
[2022-09-19] MEDS: Carvedilol 3.125 MG TABLET PO (21:01)
[2022-09-19] MEDS: Pregabalin 50 MG Capsule PO (21:01)
[2022-09-20] MEDS: 0.9% Normal Saline 1,000 ML 150 ML IV ×2 (00:09→06:12)
[2022-09-20 03:00] VITALS: BP 106/57; PULSE 76; RESP 18; TEMP 36.9; O2SAT 95
[2022-09-20 06:43] LABS: Absolute Lymphocyte Count 0.93 X10^3/uL (0.83-4.51); Absolute Neutrophil Count 6.4 X10^3/uL (2.0-7.7); Basophil# 0.01 X10^3/uL; Basophil% 0.1 % (0-1); Eosinophil# 0.04 X10^3/uL; Eosinophils% 0.5 % (0-5); Hematocrit 36.2 % (37-47); Hemoglobin 11.4 g/dL (12.0-15.0); Lymphocyte # 0.93 X10^3/ul (0.83-4.51); Lymphocyte % 11.6 % (19-41); Mean Corp Hgb Conc 31.5 g/dL (32-36); Mean Corpuscular Hgb 29.9 pg (27.0-32.0); Mean Platelet Vol. 11.6 fl (6.2-12.0); Monocyte# 0.66 X10^3/uL; Monocyte% 8.2 % (0-10); NRBC Flagged by Analyzer 0 % (0-5); Neutrophil # 6.37 X10^3/uL (2.7-7.7); Neutrophil % 79.4 % (47-70); Platelet Count 173 K/mm3 (150-450); RBC Distribution Width CV 14.5 % (11.6-14.6); RBC Distribution Width SD 50.8 fl (35.1-43.9); Red Blood Count 3.81 M/mm3 (4.2-5.4)
[2022-09-20 07:24] LABS: ALB/GLOB Ratio 0.9 RATIO (0.9-2.4); AST(SGOT) 169 U/L (15-37); Alanine Aminotransfer ALT/SGPT 27 U/L (13-56); Albumin, Serum 2.8 g/dL (3.2-5.0); Alkaline Phosphatase 38 U/L (45-117); Anion Gap 7 (5-15); BUN 11 mg/dL (7-18); BUN/Creat Ratio 11.7 RATIO (10-20); Calcium,Total 7.4 mg/dL (8.5-10.1); Chloride 106 mmol/L (98-107); Cholesterol 186 mg/dL (200); Creatinine, Serum 0.94 mg/dL (0.55-1.02); EST Glomerular Filtration Rate 61 mL/min (>60); Est Glom Filt Rate - Afr Amer 74 mL/min (>60); Estimated Creatinine Clearance 37.75 ml/min; Globulin 3.1 g/dL (2.2-4.2); Glucose 121 mg/dL (74-106); High Density Lipoprotein 30 mg/dL; Potassium 3.5 mmol/L (3.5-5.1); Protein, Total 5.9 g/dL (6.4-8.2); Sodium Level 139 mmol/L (136-145); Triglycerides 155 mg/dL; Very Low Density Lipoprotein 31 mg/dL (5-40)
[2022-09-20 07:43] LABS: Hemoglobin A1c 5.8 % (3.8-5.6)
[2022-09-20 07:55] VITALS: O2SAT 94
[2022-09-20] MEDS: TICAGRELOR 90 MG TABLET PO (08:08)
[2022-09-20] MEDS: Aspirin E.C. 81 MG Tablet PO (08:08)
[2022-09-20] MEDS: Pregabalin 50 MG Capsule PO (08:08)
[2022-09-20] MEDS: Cholecalciferol (VIT D3) 25 MCG TABLET (1,000 UNITS) 50 MCG PO (08:08)
[2022-09-20] MEDS: Carvedilol 3.125 MG TABLET PO (08:08)
--- NOTE | 2022-09-20 09:14 | PCM.PN.CARD ---
Subjective Subjective Patient was evaluated yesterday evening status post her cardiac catheterization/PCI procedure and again this a.m. Both times she states she felt better with respect to not having ongoing chest discomfort and not having ongoing right upper extremity discomfort. She has had no new acute complaints. Objective Data Vital Signs: Vital Signs Temp Pulse Resp BP Pulse Ox O2 Del Method O2 Flow Rate 98.5 F 76 18 106/57 L 94 Room Air 2 09/20/22 03:00 09/20/22 03:00 09/20/22 03:00 09/20/22 03:00 09/20/22 07:55 09/20/22 07:55 09/19/22 13:20 Oxygen Flow Rate (L/min) 2 Oxygen Delivery Method Room Air Weight: 152 lb 1.903 oz Body Mass Index (BMI) 28.1 Intake & Output: Intake and Output for Last 24 Hours 09/18/22 09/19/22 09/20/22 23:59 23:59 23:59 Intake Total 2240 / 2240 907.5 / 907.5 Balance 2240 / 2240 907.5 / 907.5 Lab / Micro Data Result Diagrams: 09/20/22 05:50 09/20/22 05:50 Labs: Laboratory Results - last 24 hr 09/19/22 09:28: WBC 7.8, RBC 4.59, Hgb 14.2, Hct 43.4, MCV 94.6, MCH 30.9, MCHC 32.7, RDW Std Deviation 50.1 H, RDW Coeff of Claude 14.5, Plt Count 199, MPV 10.6, Immature Gran % (Auto) 0.400, Neut % (Auto) 78.7 H, Lymph % (Auto) 14.8 L, [place] % (Auto) 5.4, Eos % (Auto) 0.6, Baso % (Auto) 0.1, Absolute Neuts (auto) 6.1, Absolute Lymphs (auto) 1.15, Nucleated RBC % 0 09/19/22 09:28: PT 12.8, INR 1.0 09/19/22 09:28: Sodium 138, Potassium 3.9, Chloride 102, Carbon Dioxide 29.0, Anion Gap 7, BUN 14, Creatinine 1.12 H, Estim Creat Clear Calc 31.69, Est GFR (MDRD) Af Amer 60, Est GFR (MDRD) Non-Af 50 L, BUN/Creatinine Ratio 12.5, Glucose 172 H, Calcium 9.2, Magnesium 2.4, Troponin I High Sens 187 H* 09/19/22 11:51: Troponin I High Sens 1969 H* 09/20/22 05:50: WBC 8.0, RBC 3.81 L, Hgb 11.4 L, Hct 36.2 L, MCV 95.0, MCH 29.9, MCHC 31.5 L, RDW Std Deviation 50.8 H, RDW Coeff of Claude 14.5, Plt Count 173, MPV 11.6, Immature Gran % (Auto) 0.200, Neut % (Auto) 79.4 H, Lymph % (Auto) 11.6 L, [place] % (Auto) 8.2, Eos % (Auto) 0.5, Baso % (Auto) 0.1, Absolute Neuts (auto) 6.4, Absolute Lymphs (auto) 0.93, Nucleated RBC % 0 09/20/22 05:50: Sodium 139, Potassium 3.5, Chloride 106, Carbon Dioxide 26.0, Anion Gap 7, BUN 11, Creatinine 0.94, Estim Creat Clear Calc 37.75, Est GFR (MDRD) Af Amer 74, Est GFR (MDRD) Non-Af 61, BUN/Creatinine Ratio 11.7, Glucose 121 H, Calcium 7.4 L, Total Bilirubin 0.60, AST 169 H, ALT 27, Alkaline Phosphatase 38 L, Total Protein 5.9 L, Albumin 2.8 L, Globulin 3.1, Albumin/Globulin Ratio 0.9, Triglycerides 155, Cholesterol 186, LDL Cholesterol 125, VLDL Cholesterol 31, HDL Cholesterol 30 L, TSH 39.80 H 09/20/22 05:50: Hemoglobin A1c 5.8 H Rhythm Strip Rhythm Strip: Sinus Rhythm Rate: 75 Ectopy: None Cardiology Labs/Tests 09/19/22 09:28: WBC 7.8, RBC 4.59, Hgb 14.2, Hct 43.4, MCV 94.6, MCH 30.9, MCHC 32.7, Plt Count 199, MPV 10.6, Immature Gran % (Auto) 0.400, Neut % (Auto) 78.7 H, Lymph % (Auto) 14.8 L, [place] % (Auto) 5.4, Eos % (Auto) 0.6, Baso % (Auto) 0.1, Absolute Neuts (auto) 6.1, Nucleated RBC % 0 09/19/22 09:28: PT 12.8, INR 1.0 09/19/22 09:28: Sodium 138, Potassium 3.9, Chloride 102, Carbon Dioxide 29.0, Anion Gap 7, BUN 14, Creatinine 1.12 H, Est GFR (MDRD) Af Amer 60, Est GFR (MDRD) Non-Af 50 L, BUN/Creatinine Ratio 12.5, Glucose 172 H, Calcium 9.2, Magnesium 2.4 09/20/22 05:50: WBC 8.0, RBC 3.81 L, Hgb 11.4 L, Hct 36.2 L, MCV 95.0, MCH 29.9, MCHC 31.5 L, Plt Count 173, MPV 11.6, Immature Gran % (Auto) 0.200, Neut % (Auto) 79.4 H, Lymph % (Auto) 11.6 L, [place] % (Auto) 8.2, Eos % (Auto) 0.5, Baso % (Auto) 0.1, Absolute Neuts (auto) 6.4, Nucleated RBC % 0 09/20/22 05:50: Sodium 139, Potassium 3.5, Chloride 106, Carbon Dioxide 26.0, Anion Gap 7, BUN 11, Creatinine 0.94, Est GFR (MDRD) Af Amer 74, Est GFR (MDRD) Non-Af 61, BUN/Creatinine Ratio 11.7, Glucose 121 H, Calcium 7.4 L, Total Bilirubin 0.60, Triglycerides 155, Cholesterol 186, LDL Cholesterol 125, VLDL Cholesterol 31, HDL Cholesterol 30 L 09/20/22 05:50: Hemoglobin A1c 5.8 H Rhythm: Sinus rhythm ECHO: Pending Radiography Diagnostic Testing: Radiology Impression Chest X-Ray 09/19/22 09:33 IMPRESSION: Findings suggestive of a mild degree of linear bibasilar atelectasis. Electronically Signed: Franco Garcia MD at 10:41 EST , Physical Exam Narrative This is an 81-year-old white female who appears to be awake and alert and uncomfortable at this time. Const alert, oriented x3 and no apparent distress Orientation / Consciousness: awake HEENT normocephalic, head/scalp atraumatic and hearing grossly normal bilaterally Eyes PERRL, EOMs intact bilaterally, conjunctivae normal and no scleral icterus Neck full ROM, supple and no JVD Carotids: normal carotid upstroke Chest inspection of chest normal Resp normal respiratory effort and clear to auscultation bilaterally Cardio regular rate, regular rhythm, S1 normal heart sound and S2 normal heart sound GI normal to inspection, nondistended, normoactive bowel sounds Extremity no pedal edema Extremity Narrative: Right forearm: Positive ecchymoses: Radial artery: Pulses 2+/4+: No bruit: No hematoma appreciated at this time Skin no rashes or lesions noted Psych mental status grossly normal Assessment & Plan Assessment/Plan (1) Unstable angina: PLAN: The patient presents with symptoms of ongoing unstable angina pectoris. She has had abnormal cardiac enzymes and an abnormal ECG. She has been treated with aspirin and nitrates. Underwent evaluation in the cardiac catheterization laboratory. She was found to have angiographically significant appearing CAD. She underwent intravascular ultrasound of the left main coronary artery. She then underwent PCI of the first OM and second OM. At the present time she states she feels much improved as she is no longer having her chest discomfort or her right upper extremity discomfort. Her medications are being altered. She will be treated with aspirin therapy, ticagrelor/Brilinta therapy, beta-desean therapy, and statin therapy at this time. (2) Non-ST elevation (NSTEMI) myocardial infarction: PLAN: The patient has objective findings compatible with a non-ST segment elevation [place]. He has undergone further invasive evaluation as noted. She will continue medical therapy. An echocardiogram has been requested to assess her left ventricular wall motion and systolic function to help guide additional evaluation and care. (3) HLD (hyperlipidemia): QUALIFIERS: Hyperlipidemia type: unspecified Qualified Code(s): E78.5 - Hyperlipidemia, unspecified PLAN: Based upon her diagnosis of underlying CAD she is now being treated with statin therapy. She has been placed on atorvastatin at 80 mg p.o. daily (4) HTN (hypertension): QUALIFIERS: Hypertension type: essential hypertension Qualified Code(s): I10 - Essential (primary) hypertension PLAN: The patient states that her blood pressure has been traditionally elevated and challenging to control. She has been on medical therapy at home with carvedilol, telmisartan, and amlodipine. She will continue medical therapy for her blood pressure as appropriate taking into consideration the effects of nitrates and lower blood pressure. (5) Hematoma: PLAN: The patient was reported by the medical staff as having a right forearm hematoma. The patient was reported as requiring continued compression. Status post such the hematoma was reported as being dispersed. At the present time the patient does not appear to have an obvious hematoma by patient. The patient does have an area of ecchymoses on the right forearm. Her right radial artery pulse appears to be intact and 2+/4+ with no bruit. Patient will continue to be followed. Addt'l Comments The above was discussed and reviewed with the patient. Comment: Time spent in the patient's evaluation, examination, review of medical studies, documentation, and discussion: 37 minutes Procedure Criteria Type of Procedure Procedure Type: Elective Elective Risks - COVID COVID Risk Discussion: The surgeon/proceduralist and patient have discussed in detail the risk of exposure to and/or potential harm posed by the COVID-19 virus with having a surgery/procedure at this time versus the risk of delaying the surgery/procedure. It is not possible to know either the risk of delaying the surgery or procedure or chance of getting an infection with perfect accuracy, but a joint decision was made between the patient and the surgeon/proceduralist to proceed at this time with the scheduled surgery/procedure as indicated on the consent form.
[2022-09-20 09:41] LABS: Free T3 0.9 pg/mL (2.18-3.98); T4 Free Direct 0.53 ng/dL (0.76-1.46)
--- NOTE | 2022-09-20 09:50 | CASEMGMT ---
RN CM Face to Face with patient for initial transition planning/care coordination assessment. RN CM introduced self and role at [facility]. Patient sitting in chair, alert and oriented, at bedside. Patient willing to participate in assessment and is able to answer all questions appropriately. Care providers, pharmacy, and demographics verified. Patient wishes to discharge home, denies need for home health at this time. Patient states she has no further needs or concerns at this time. CM to follow for discharge planning needs that may arise. PCP: Mitesh Specialists: none Preferred Pharmacy: [facility] Insurance: Jazmyne L[place] Prescription Benefit: yes Living Will/HPOA: yes, Dane MANDUJANOOK: Living Arrangements: Patient lives with in a 2 story home. Patient states she is independent and able to ambulate stairs at home. Transportation: self, DME/HHC: Patient states she has shower chair, raised toilet, grab bars, walker at home. No previous HHC of SNF. Disposition Plan: Patient to discharge home with family support and follow-up plans in place. Kamryn GREY, RN, CM
--- NOTE | 2022-09-20 10:40 | CRPHASE1_ITS ---
Patient Communication PHII Cardiac Rehab Discussed with Patient:: Yes Guide to Cardiac Rehab Given to Patient:: Yes Cardiac Rehab Facility Choice List Given to Patient:: Yes Choice Program [facility] CR PHII:: Communication Given to CR City Letter Carrier:: Amy Fuentes Phase II Cardiac Rehab:: Yes Sessions:: 36 sessions - 3 days/wk, 12 weeks Cardiac Rehabilitation Info Cardiac Rehabilitation Program Information: Cardiac Rehab The cardiac rehab team at [facility] consists of highly skilled exercise physiologists, nurses, respiratory therapists and physicians working together with you. Our purpose is to help you have a full recovery and achieve the goals you set for yourself. Over the years many of our patients have returned to activities they assumed they would never do again! We can help restore your confidence and motivation to make lifestyle changes that can have a significant impact on your health and quality of life! We can help answer questions and concerns you may have about exercise, lifestyle, medications, diet, stress and anxiety which are common following a hospitalization. WE monitor ECG and vital signs during exercise and discuss your progress with you and report to your physician(s). Cardiac Rehab is proven to help reduce readmissions, improve functional capacity and lower recurrence of problems with your heart. Our Cardiac Rehab program is Certified by the [place] [employer] Pulmonary [employer] (AACVPR) and Accredited by the [place] [employer] through our [facility]. You can contact us at . We invite you to call us with your questions or to get started in our program. If you have other questions or concerns be sure to ask your physician/provider during your follow-up visit. WE look forward to seeing you!
--- NOTE | 2022-09-20 10:42 | CRPH1.INSTRU ---
General Education CAD and cardiac anatomy and function:: Patient communicates acknowledgment, Needs reinforcement Explanation of diagnoses and procedures:: Patient communicates acknowledgment, Needs reinforcement Sign/Symptoms of OR:: Patient communicates acknowledgment, Needs reinforcement Antiplatelet therapy: Patient communicates acknowledgment, Needs reinforcement Proper use of NTG-SL: Patient communicates acknowledgment, Needs reinforcement Emergency procedures and activation of EMS: Patient communicates acknowledgment, Needs reinforcement Compliance of all prescribed medications: Patient communicates acknowledgment, Needs reinforcement Smoking Patient Nicotine/Smoking Risk Factors Are:: Non-smoker Overweight/Obesity Patient Overweight/Obesity Risk Factors Are:: BMI Normal [24-29 & > 65 years old] Recommendations Include:: Weight loss of 5-10%, Reduced calorie diet, Exercise 5-7 times/week Overweight/Obesity:: Patient communicates acknowledgment, Needs reinforcement Hypertension Recommendations Include:: Maintain BP <130/85, Decrease/maintain normal body weight Hypertension:: Patient communicates acknowledgment, Needs reinforcement Sedentary Patient Sedentary Risk Factors Are:: Lack of regular exercise Recommendations Include:: Aerobic exercise 5-7 times/week for 20-30 minutes continuously, Benefits of regular exercise, Discussed home walking program, Monitored Outpatient Cardiac Rehab Sedentary Response Code:: Patient communicates acknowledgment, Needs reinforcement
[2022-09-20 14:11] VITALS: BP 113/68; PULSE 74; RESP 12; TEMP 36.8; O2SAT 93
--- NOTE | 2022-09-20 14:13 | NURSING ---
viewed documentation from Student nurse
--- NOTE | 2022-09-20 15:03 | CHAPLAIN ---
Type of Pastoral Visit _x__ Initial Visit ___ Follow-up Visit ___ On-call Visit ___ General Patient Visit ___ Spiritual Assessment ___ Family Conference ___ Bereavement ___ Rapid Response ___ Code Blue ___ Other (describe below) Pastoral Care Referral From _x__ Patient ___ Family ___ Nurse ___ Physician ___ Virtual Assistant For Advertisers ___ Stapling Machine Operator ___ Other (describe below) Sacrament/Intervention ___ Active listening ___ Anointing ___ Samaritan ___ Bereavement ___ Communion ___ Maris exploration ___ ___ Life review ___ Prayer ___ Reconciliation ___ Sacrament of Sick _x__ Supportive presence ___ Wedding ___ Other (describe below) Pastoral Comments patient and spouse are in room and waiting for her discharge per her words; pt states that it all is fine now; no other needs
--- NOTE | 2022-09-20 15:32 | DCINST_ITS ---
Discharge Instructions Diet Discharge Diet: - (DASH diet) Activity Discharge Activity: Return to Normal Activity Follow Up Care Test Results: Test results from this visit will be discussed in further detail at your follow- up appointment, if applicable. Discharge Plan Admission Admit Date/Time: 09/19/22 10:55 Primary Reason for Your Visit: Chest pain Attending Provider: Denise Miller Primary Care Provider: Andrés Sagastume Consulting Providers: Tico Box Instructions Patient Instructions: Heart Attack Dc Additional Instructions / Restrictions: *Please take this with you to your next doctors appointment* DISCHARGE INSTRUCTIONS PLEASE READ ?You were admitted due to heart attack and had several medication changes ? You will be started on a medication called Brilinta which you will take twice daily ?You were started on a medication called atorvastatin which you will take daily ?You will need to follow-up with cardiology, Dr. Box, upon discharge, please call the office to schedule a hospital follow-up appointment ( [phone]) ?You will also take an 81 mg aspirin daily ?You will continue your carvedilol 3.125 mg twice daily and telmisartan ? Please do not take your amlodipine at this time ?Please continue to take your Synthroid, take this every day at the same time before breakfast and take it only with water on an empty stomach, wait 1 hour before eating or drinking anything other than water.you were noted to have a TSH of 39.8- As discussed, please call your primary care physician upon discharge to schedule a hospital follow-up appointment and to discuss dosing changes for your Synthroid, it is important that you do this upon discharge ? You indicated that you have a blood pressure cuff at home, please check your blood pressure daily and if the top number (systolic blood pressure) is less than 100 please contact your primary care physician regarding your blood pressure medication as these may need changed -Please call your primary care provider's office upon discharge to schedule a hospital follow up within 1 week. -For any concerning signs or symptoms please call 911 or proceed to the nearest emergency department Discharge Orders/Prescriptions Prescriptions: New atorvastatin 80 mg Tablet 80 mg PO QHS 30 Days Qty: 30 0RF aspirin 81 mg Tablet,Delayed Release (Dr/Ec) 81 mg PO BREAKFAST 30 Days Qty: 30 0RF Brilinta 90 mg Tablet 90 mg PO BID 30 Days Qty: 60 0RF Continued levothyroxine 25 MCG tablet 25 mcg PO SUMOTUWETHFR levothyroxine 50 mcg tablet 50 mcg PO SA telmisartan 20 mg tablet 20 mg PO DAILY pregabalin 25 mg capsule 50 mg PO BID cholecalciferol (vitamin D3) 50 mcg (2,000 unit) Tablet 50 mcg PO DAILY carvedilol 3.125 mg tablet 3.125 mg PO DAILY Discontinued gabapentin 100 mg capsule 200 mg PO BID amlodipine 2.5 mg tablet 2.5 mg PO DAILY Referrals / Follow Up: Andrés Sagastume MD [Primary Care Provider] - Within 1 Week Tico Box MD [Med Staff - Active Staff] - See Referral Note (Please call the alarm field technician office upon discharge to schedule your hospital follow-up appointment) Disposition Disposition (needs filled in before D/C Order can be placed): Home, Self Care
[2022-09-20 15:46] LABS: ACT Activated Clotting Time 342 sec (74-137)
[2022-09-20 15:47] LABS: ACT Activated Clotting Time 347 sec (74-137)
--- NOTE | 2022-09-20 15:56 | DS.PCM_ITS ---
Providers Date of Admission: 09/19/22 Date of Discharge: 09/20/22 Primary Care Physician: Dr. Andrés Sagastume MD Consultations 09/19/22 11:34 Consult: Cardiology Routine Consulting Provider: Tico Box Reason for Consult: Chest Pain EMERGENT Consult: No MD Notified: Yes Date Notified: 09/19/22 Time Notified: 10:59 Method of Notification: ED Physician Initiated Reason For Visit: NSTEMI Diagnosis Discharge Diagnosis (1) Unstable angina: Status: Acute Code(s): I20.0 - Unstable angina (2) Non-ST elevation (NSTEMI) myocardial infarction: Status: Acute Code(s): I21.4 - Non-ST elevation (NSTEMI) myocardial infarction (3) HLD (hyperlipidemia): Status: Chronic Code(s): E78.5 - Hyperlipidemia, unspecified Qualifiers: Hyperlipidemia type: unspecified Qualified Code(s): E78.5 - Hyperlipidemia, unspecified (4) HTN (hypertension): Status: Chronic Code(s): I10 - Essential (primary) hypertension Qualifiers: Hypertension type: essential hypertension Qualified Code(s): I10 - Essential (primary) hypertension (5) Hematoma: Status: Acute Code(s): T14.8XXA - Other injury of unspecified body region, initial encounter Plan #NSTEMI/CAD #CKD stage III unclear subtype #Hypothyroidism Medications at Discharge Home Medications levothyroxine 25 mcg tablet 25 mcg PO SUMOTUWETHFR thyroid 05/26/20 carvedilol 3.125 mg tablet 3.125 mg PO DAILY heart 09/19/22 cholecalciferol (vitamin D3) 50 mcg (2,000 unit) tablet 50 mcg PO DAILY SUP PLEMENT 09/19/22 levothyroxine 50 mcg tablet 50 mcg PO SA thyroid 09/19/22 pregabalin 25 mg capsule 50 mg PO BID pain 09/19/22 telmisartan 20 mg tablet 20 mg PO DAILY blood pressure 09/19/22 aspirin 81 mg tablet,delayed release 81 mg PO BREAKFAST 30 days #30 tabs 09/20/22 atorvastatin 80 mg tablet 80 mg PO QHS 30 days #30 tabs 09/20/22 ticagrelor 90 mg tablet (Brilinta) 90 mg PO BID 30 days #60 tabs 09/20/22 Hospital Course Procedures - (Heart catheterization and PCI, echocardiogram) Summary of Care Provided Minutes Spent on Discharge: 30 Hospital Course: 81-year-old female with a history of hypertension and hypothyroidism who presented to [facility] 09/19/2022 with chest pain that had an onset of 6 AM and woke her up. It was burning and squeezing in the center of her chest and radiated to her arm and she also was sick to her stomach. In the ER she was noted to have T wave inversions and a troponin of 187 and was given nitroglycerin which improved her pain. Cardiology contacted and recommended n.p.o. and hold anticoagulation and she was to go to the [facility] same day. She was found to have coronary artery disease and had PCI of the first OM and second OM. She was started on Brilinta and aspirin as well as atorvastatin and her beta-mathew was continued. Symptoms completely resolved and rhythm stable, echocardiogram demonstrated segmental dysfunction with preserved ejection fraction, EF 55%, RVSP 27. Discussed with cardiology and discharged home with follow-up reasonable as she is stable. On day of discharge patient has no complaints. Instructions provided as followed: *Please take this with you to your next doctors appointment* DISCHARGE INSTRUCTIONS PLEASE READ ?You were admitted due to heart attack and had several medication changes ? You will be started on a medication called Brilinta which you will take twice daily ?You were started on a medication called atorvastatin which you will take daily ?You will need to follow-up with cardiology, Dr. Box, upon discharge, please call the office to schedule a hospital follow-up appointment ( [phone]) ?You will also take an 81 mg aspirin daily ?You will continue your carvedilol 3.125 mg twice daily and telmisartan ? Please do not take your amlodipine at this time ?Please continue to take your Synthroid, take this every day at the same time before breakfast and take it only with water on an empty stomach, wait 1 hour before eating or drinking anything other than water.you were noted to have a TSH of 39.8- As discussed, please call your primary care physician upon discharge to schedule a hospital follow-up appointment and to discuss dosing changes for your Synthroid, it is important that you do this upon discharge ? You indicated that you have a blood pressure cuff at home, please check your blood pressure daily and if the top number (systolic blood pressure) is less than 100 please contact your primary care physician regarding your blood pressure medication as these may need changed -Please call your primary care provider's office upon discharge to schedule a hospital follow up within 1 week. -For any concerning signs or symptoms please call 911 or proceed to the nearest emergency department Would also recommend having lab work (BMP) checked in 3 to 5 days to monitor your kidney function with the resumption of your telmisartan.? Please call your physician's office upon discharge to obtain order for blood work Did discuss discharge instructions with Ms. Martin including her TSH and Synthroid, no recent changes, discussed adjustments and she will call her primary care doctor upon discharge for further adjusting and monitoring, stressed that this needed to be done. Also discussed her blood pressure and checking it daily. Instructions provided as above Physical Exam Const alert and oriented x3 General Appearance: cooperative and comfortable HEENT normocephalic and head/scalp atraumatic Eyes EOMs intact bilaterally Neck supple Resp normal respiratory effort and clear to auscultation bilaterally Cardio regular rate and regular rhythm GI soft to palpation, non-tender and non-distended Extremity normal to inspection Skin no rashes or lesions noted Neuro moves all extremities Psych affect normal Weight / BMI Weight Weight: 69 kg Body Mass Index (BMI) 28.1 ABG / Lab / Microbiology Data Result Diagrams: 09/20/22 05:50 09/20/22 05:50 Laboratory: Laboratory Results - last 24 hr 09/20/22 05:50: WBC 8.0, RBC 3.81 L, Hgb 11.4 L, Hct 36.2 L, MCV 95.0, MCH 29.9, MCHC 31.5 L, RDW Std Deviation 50.8 H, RDW Coeff of Claude 14.5, Plt Count 173, MPV 11.6, Immature Gran % (Auto) 0.200, Neut % (Auto) 79.4 H, Lymph % (Auto) 11.6 L, Graves % (Auto) 8.2, Eos % (Auto) 0.5, Baso % (Auto) 0.1, Absolute Neuts (auto) 6.4, Absolute Lymphs (auto) 0.93, Nucleated RBC % 0 09/20/22 05:50: Sodium 139, Potassium 3.5, Chloride 106, Carbon Dioxide 26.0, Anion Gap 7, BUN 11, Creatinine 0.94, Estim Creat Clear Calc 37.75, Est GFR (MDRD) Af Amer 74, Est GFR (MDRD) Non-Af 61, BUN/Creatinine Ratio 11.7, Glucose 121 H, Calcium 7.4 L, Total Bilirubin 0.60, AST 169 H, ALT 27, Alkaline Phosphatase 38 L, Total Protein 5.9 L, Albumin 2.8 L, Globulin 3.1, Albumin/Globulin Ratio 0.9, Triglycerides 155, Cholesterol 186, LDL Cholesterol 125, VLDL Cholesterol 31, HDL Cholesterol 30 L, TSH 39.80 H 09/20/22 05:50: Hemoglobin A1c 5.8 H 09/20/22 05:50: Free T4 0.53 L, Free T3 pg/dL 0.9 L 09/20/22 15:15: Activated Clotting Time 347 H 09/20/22 16:30: Activated Clotting Time 342 H Radiography Diagnostic Testing: Radiology Impression Echocardiogram 09/19/22 11:34 Interpretation Summary Segmental dysfunction with preserved ejection fraction (see wall motion). The estimated ejection fraction is 55 %. Mild (1+) mitral valve insufficiency. Mild tricuspid valve insufficiency. Calcified aortic root. Right ventricular systolic pressure estimated to be 27 mmHg. Diastolic function is indeterminate. Ordering Physician: Denise Miller Referring Physician: Andrés Sagastume Performed By: Fartun Rios, LEANNE, RVT D/C Instructions Discharge Diet: - (DASH diet) Meaningful Use Info Meaningful Use Diagnoses (Choose all that apply): AMI AMI/Post PCI/Angioplasty Aspirin given w/in 24hrs of arrival?: Yes ASA at discharge?: Yes Antiplatelet Therapy at Discharge:: Yes Statins at discharge?: Yes Lefty/ARB at discharge?: Yes Beta Mathew at discharge?: Yes Done w/ Acute DE measure.: Yes Documented LVEF (%): 55 Discharge Plan Admission Admit Date/Time: 09/19/22 10:55 Primary Reason for Your Visit: Chest pain Attending Provider: Denise Miller Primary Care Provider: Andrés Sagastume Consulting Providers: Tico Box Instructions Patient Instructions: Heart Attack Dc Additional Instructions / Restrictions: *Please take this with you to your next doctors appointment* DISCHARGE INSTRUCTIONS PLEASE READ ?You were admitted due to heart attack and had several medication changes ? You will be started on a medication called Brilinta which you will take twice daily ?You were started on a medication called atorvastatin which you will take daily ?You will need to follow-up with cardiology, Dr. Box, upon discharge, please call the office to schedule a hospital follow-up appointment ( [phone]) ?You will also take an 81 mg aspirin daily ?You will continue your carvedilol 3.125 mg twice daily and telmisartan ? Please do not take your amlodipine at this time ?Please continue to take your Synthroid, take this every day at the same time before breakfast and take it only with water on an empty stomach, wait 1 hour before eating or drinking anything other than water.you were noted to have a TSH of 39.8- As discussed, please call your primary care physician upon discharge to schedule a hospital follow-up appointment and to discuss dosing changes for your Synthroid, it is important that you do this upon discharge ? You indicated that you have a blood pressure cuff at home, please check your blood pressure daily and if the top number (systolic blood pressure) is less than 100 please contact your primary care physician regarding your blood pressur e medication as these may need changed -Please call your primary care provider's office upon discharge to schedule a hospital follow up within 1 week. -For any concerning signs or symptoms please call 911 or proceed to the nearest emergency department\Would also recommend having lab work (BMP) checked in 3 to 5 days to monitor your kidney function with the resumption of your telmisartan.? Please call your physician's office upon discharge to obtain order for blood work Discharge Orders/Prescriptions Prescriptions: New atorvastatin 80 mg Tablet 80 mg PO QHS 30 Days Qty: 30 0RF aspirin 81 mg Tablet,Delayed Release (Dr/Ec) 81 mg PO BREAKFAST 30 Days Qty: 30 0RF Brilinta 90 mg Tablet 90 mg PO BID 30 Days Qty: 60 0RF Continued levothyroxine 25 MCG tablet 25 mcg PO SUMOTUWETHFR levothyroxine 50 mcg tablet 50 mcg PO SA telmisartan 20 mg tablet 20 mg PO DAILY pregabalin 25 mg capsule 50 mg PO BID cholecalciferol (vitamin D3) 50 mcg (2,000 unit) Tablet 50 mcg PO DAILY carvedilol 3.125 mg tablet 3.125 mg PO DAILY Discontinued gabapentin 100 mg capsule 200 mg PO BID amlodipine 2.5 mg tablet 2.5 mg PO DAILY Referrals / Follow Up: Andrés Sagastume MD [Primary Care Provider] - Within 1 Week Tico Box MD [Med Staff - Active Staff] - See Referral Note (Please call the merchandise presentation manager office upon discharge to schedule your hospital follow-up appointment) Disposition Disposition (needs filled in before D/C Order can be placed): Home, Self Care Charges/Coding Visit Charges Inpatient E&M: 51489 Disch Hosp
--- NOTE | 2022-09-20 16:40 | CASEMGMT ---
Patient provided with [employer] savings card. RUBIN YI called [facility] and copay is $41.30.Patient updated had no further questions or concerns.
--- NOTE | 2022-09-20 17:29 | CL.D_ITS ---
Patient Name: BUD DIAMOND Study Date: 09/19/2022 Performing: Tico Box MD Ht: 62 inches 157.48 cm : 1940 Wt: 153.88 lbs 69.8 kg Age: 81 Gender: female BSA: 1.71 PROCEDURE(S) PERFORMED DC01-(49938)LHC/COR/LV IC08-([id number])IVUS, CORONARY OR GRAFT, INITIAL VESSEL IC12-([id number])NATANAEL W/WO PTCA, SINGLE CORONARY ARTERY IC13-([id number])NATANAEL W/WO PTCA, EACH ADD'L ART, SAME MAJOR CLINICAL PROFILE AND INDICATIONS Indications: Suspected CAD Heart Failure: None Stress/Imaging Stress/Image Study Performed: No Angina Classification Anginal Classification w/in 2 Weeks: CCS IV CAD Presentations: Non-STEMI. CONCLUSIONS Elevated Left Ventricular End Diastolic Pressure LV with regional wall motion abnormalities with overall preserved LVEF LVEF: by LV gram 55 % [place] Multivessel CAD RECOMMENDATIONS Risk factor modification Medical therapy Case discussed with Dr. Fuentes of Interventional Cardiology: consider further catheter based diagnostic evaluation / possible intervention. DESCRIPTION OF PROCEDURE The patient arrived to the procedure lab. The risks and benefits of the procedure as well as a full description of our services here and current unavailability of surgical backup were fully explained to the patient and/or their significant other prior to the catheterization. The Timeout was completed, verifying the correct patient and procedure. The patient's procedural site was prepped and draped in the usual fashion. Local anesthetic was given subcutaneously to right radial region with Lidocaine 2%. Using a modified Seldinger technique, arterial access was obtained via the right radial artery, a 6Fr sheath was inserted. Left Coronary Artery selective angiography was performed in multiple views using a 5 Fr. 4.0 Hamilton catheter. Right Coronary Artery selective angiography was then performed in multiple views using a 5 Fr. 4.0 Hamilton catheter. Left Ventriculography was performed in NIÑO projection using a 5 Fr. Pigtail catheter. LV to AO pullback pressures were then recorded.The arterial sheath was pulled and a TR Band was applied for hemostasis, with 12cc of air CORONARY ANGIOGRAPHY DOMINANCE: Right Dominant LEFT HEART ASSESSMENT Left Ventricular Ejection Fraction: by LV Gram 55 % Inferior Mid Hypokinesis Elevated Left Ventricular End Diastolic Pressure LVEDP: 31 mmHg LEFT MAIN: proximal: eccentric: 25 - 50 % Stenosis LEFT ANTERIOR DESCENDING ARTERY: Mild luminal irregularities MID LAD: s/p DX1: 25 % Stenosis DIAGONAL 1: Ostial - 50 % Stenosis CIRCUMFLEX ARTERY: Mild luminal irregularities OM 1: Proximal - is occluded OM 2: Mid - 95 % Stenosis RAMUS: Mild luminal irregularities RIGHT CORONARY ARTERY: Mild luminal irregularities MID RCA: Mild luminal irregularities less than 30% AORTIC ROOT: Angiographically normal COMPLICATIONS No Complications PROCEDURE MEDICATIONS Fentanyl 50 mcg IV Versed 1 mg IV Fentanyl 50 mcg IV Versed 2 mg IV Oxygen: 2 L/min via nasal cannula Aspirin (325mg) 1 Tabs PO 09/19/2022 14:08:51 Brilinta 180 mg PO @ 09/19/2022 15:08:07 Heparin given IA 09/19/2022 14:39:26 Heparin 5000 unit(s) IV 09/19/2022 15:08:02 Heparin 2000 unit(s) IV 09/19/2022 15:56:53 Nitro 200 mcg IC 09/19/2022 15:53:43 Verapamil 2.5mg, Ntg 100mcgs, 3000 units of Heparin given IA 09/19/2022 14:39:26 SUMMARY OF HEMODYNAMIC DATA Time AIR REST ECG 14:05:39 AO 127/69 (95) SA 14:41:33 LV 159/-2, 24 14:51:09 LV 158/1, 31 14:51:18 LV 147/3, 29 14:53:11 LV 151/2, 30 14:53:19 LVp 154/0, 31 14:53:24 AOp 152/69 (103) 14:53:31 AIR REST 18:17:47 Signed By Tico Box MD On 09/20/2022 17:28:55 Tico Box MD
== END 2022-09-20 17:09 | disposition home or self-care (01) | DRG 247 ==
LOC: ED 10:10 → PCU 11:14
PROVIDERS: Admitting Provider Internal Medicine; Emergency Provider Emergency Medicine; PCP Family Medicine; Visit Provider Internal Medicine
DX: I21.4 Non-ST elevation (NSTEMI) myocardial infarction (principal); E03.9 Hypothyroidism, unspecified; N18.30 Chronic kidney disease, stage 3 unspecified; I25.110 Atherosclerotic heart disease of native coronary artery with unstable angina pectoris; E78.5 Hyperlipidemia, unspecified; I12.9 Hypertensive chronic kidney disease with stage 1 through stage 4 chronic kidney disease, or unspecified chronic kidney disease; Z79.82 Long term (current) use of aspirin; Z79.899 Other long term (current) drug therapy
CPT/HCPCS: 36415; 71045; 80048; 80053; 80061; 83036; 83735; 84439; 84443; 84481; 84484; 85025; 85347; 85610; 92928; 92929; 92978; 93005; 93306; 93458; 97162; 97166; 99152; 99153; 99252; 99285; C1874; J7030; J7040; Q9967; A4216; C1725; C1753; C1769; C1887; C1894; C9600; C9601; G0463; J2405

== ENCOUNTER → 2022-09-28 | Outpatient (CLI) | payer MEDICARE, OTHER, SELFPAY ==
[2022-09-28 12:13] LABS: Absolute Lymphocyte Count 1.13 X10^3/uL (0.83-4.51); Absolute Neutrophil Count 4.2 X10^3/uL (2.0-7.7); Basophil# 0.02 X10^3/uL; Basophil% 0.3 % (0-1); Eosinophil# 0.08 X10^3/uL; Eosinophils% 1.3 % (0-5); Hematocrit 36.6 % (37-47); Hemoglobin 11.4 g/dL (12.0-15.0); Lymphocyte # 1.13 X10^3/ul (0.83-4.51); Lymphocyte % 18.7 % (19-41); Mean Corp Hgb Conc 31.1 g/dL (32-36); Mean Corpuscular Hgb 29.8 pg (27.0-32.0); Mean Corpuscular Volume 95.8 fL (81-99); Mean Platelet Vol. 11.5 fl (6.2-12.0); Monocyte# 0.56 X10^3/uL; Monocyte% 9.3 % (0-10); NRBC Flagged by Analyzer 0 % (0-5); Neutrophil # 4.23 X10^3/uL (2.7-7.7); Neutrophil % 70.1 % (47-70); Platelet Count 227 K/mm3 (150-450); RBC Distribution Width CV 14.6 % (11.6-14.6); RBC Distribution Width SD 51.7 fl (35.1-43.9); Red Blood Count 3.82 M/mm3 (4.2-5.4)
[2022-09-28 12:57] LABS: ALB/GLOB Ratio 0.9 RATIO (0.9-2.4); AST(SGOT) 22 U/L (15-37); Alanine Aminotransfer ALT/SGPT 20 U/L (13-56); Albumin, Serum 3.7 g/dL (3.2-5.0); Alkaline Phosphatase 52 U/L (45-117); Anion Gap 4 (5-15); BUN 13 mg/dL (7-18); BUN/Creat Ratio 9.6 RATIO (10-20); Calcium,Total 9.2 mg/dL (8.5-10.1); Chloride 107 mmol/L (98-107); Creatinine, Serum 1.36 mg/dL (0.55-1.02); EST Glomerular Filtration Rate 40 mL/min (>60); Est Glom Filt Rate - Afr Amer 48 mL/min (>60); Glucose 89 mg/dL (74-106); Potassium 3.7 mmol/L (3.5-5.1); Protein, Total 7.7 g/dL (6.4-8.2); Sodium Level 140 mmol/L (136-145); T4 Free Direct 0.57 ng/dL (0.76-1.46)
== END | disposition home or self-care (01) ==
LOC: MTLAB 11:20
PROVIDERS: PCP Family Medicine; Referring Provider Family Medicine; Visit Provider Family Medicine
DX: N18.32 Chronic kidney disease, stage 3b (principal); N25.81 Secondary hyperparathyroidism of renal origin; I25.10 Atherosclerotic heart disease of native coronary artery without angina pectoris; E03.9 Hypothyroidism, unspecified
CPT/HCPCS: 36415; 80053; 84439; 84443; 84481; 85025

== ENCOUNTER → 2023-02-01 | Outpatient (CLI) | payer MEDICARE, OTHER, SELFPAY ==
--- NOTE | 2023-02-01 09:48 | RAD_ITS ---
STUDY: X-RAY - LUMBOSACRAL SPINE REASON FOR EXAM: Female, 82 years old. Low back pain TECHNIQUE: 6 view(s) of the lumbosacral spine were obtained. COMPARISON: 03/17/2020 FINDINGS: Stable surgical hardware at L4 and L5 previous pedicle screw fusion surgery and laminectomy Normal lumbar lordosis. There is a mild levoscoliosis of the lumbar spine. There is normal alignment of the vertebrae in the lateral view. There is multilevel endplate spondylosis of the lumbar vertebrae. There is multi-level degenerative disc disease with multi-level disc space narrowing. No instability on the flexion or extension views, range of motion is limited Normal bilateral sacral ala, sacroiliac joints, and visualized sacrum. Normal visualized soft tissue structures. RAD/L/S Spine w Bend Min 6 Vw IMPRESSION: Degenerative changes of the spine, as detailed above. No fracture or suspicious osseous lesion Stable surgical hardware in L4 and L5 Mild levoscoliosis No demonstrated instability Electronically Signed: Jose Boyd MD at 10:06 EDT ,
--- NOTE | 2023-02-01 09:48 | RAD_ITS ---
EXAM: XR BILATERAL HIPS WITH PELVIS WHEN PERFORMED, 2 VIEWS CLINICAL INDICATION: pain in hips and back; cc copy x-ray to Dr Best at [facility] TECHNIQUE: Frontal view of the bilateral hips with pelvis when performed. COMPARISON: No relevant prior studies available. FINDINGS: BONES/JOINTS: Bilateral mild hip osteoarthrosis is slightly worse on the right. Moderate degenerative changes of the symphysis. L4-L5 posterior osteometallic fusion without abnormality. No displaced fracture. No destructive or sclerotic lesions. Note that overlapping bowel shadows may however obscure fine detail. Sacroiliac joint is unremarkable. SOFT TISSUES: Few small vascular calcifications in the pelvis. No soft tissue swelling or gas. No soft tissue abnormalities. RAD/Hips B/L min 2 views w/ Pelvis IMPRESSION: 1. No acute osseous abnormalities. 2. Bilateral mild hip osteoarthrosis is slightly worse on the right. 3. Moderate degenerative changes of the symphysis. Electronically Signed: Flex Dash MD at 5:00 EDT ,
== END | disposition home or self-care (01) ==
LOC: MTRAD 09:48
PROVIDERS: PCP Family Medicine; Referring Provider Family Medicine; Visit Provider Family Medicine
DX: M51.37 Other intervertebral disc degeneration, lumbosacral region (principal); M48.061 Spinal stenosis, lumbar region without neurogenic claudication; M25.551 Pain in right hip; M25.552 Pain in left hip
CPT/HCPCS: 72114; 73521

== ENCOUNTER → 2023-02-08 | Outpatient (CLI) | payer MEDICARE, OTHER, SELFPAY ==
[2023-02-08 12:33] LABS: Absolute Lymphocyte Count 1.25 X10^3/uL (0.83-4.51); Absolute Neutrophil Count 4.4 X10^3/uL (2.0-7.7); Basophil# 0.02 X10^3/uL; Basophil% 0.3 % (0-1); Eosinophil# 0.12 X10^3/uL; Eosinophils% 1.9 % (0-5); Hematocrit 39.9 % (37-47); Hemoglobin 12.7 g/dL (12.0-15.0); Lymphocyte # 1.25 X10^3/ul (0.83-4.51); Lymphocyte % 19.3 % (19-41); Mean Corp Hgb Conc 31.8 g/dL (32-36); Mean Corpuscular Volume 94.1 fL (81-99); Mean Platelet Vol. 10.8 fl (6.2-12.0); Monocyte# 0.62 X10^3/uL; Monocyte% 9.6 % (0-10); NRBC Flagged by Analyzer 0 % (0-5); Neutrophil # 4.44 X10^3/uL (2.7-7.7); Neutrophil % 68.4 % (47-70); Platelet Count 169 K/mm3 (150-450); RBC Distribution Width SD 51.8 fl (35.1-43.9); Red Blood Count 4.24 M/mm3 (4.2-5.4); White Blood Count 6.5 K/mm3 (4.4-11.0)
[2023-02-08 12:38] LABS: BNP,B-Type NATRIURETIC PEPTIDE 111.5 pg/mL (0-100)
[2023-02-08 12:40] LABS: Anion Gap 7 (5-15); BUN 16 mg/dL (7-18); BUN/Creat Ratio 13.3 RATIO (10-20); Calcium,Total 9.1 mg/dL (8.5-10.1); Chloride 109 mmol/L (98-107); EST Glomerular Filtration Rate 46 mL/min (>60); Est Glom Filt Rate - Afr Amer 55 mL/min (>60); Glucose 96 mg/dL (74-106); Potassium 4.3 mmol/L (3.5-5.1); Sodium Level 142 mmol/L (136-145)
== END | disposition home or self-care (01) ==
LOC: LAB 11:56
PROVIDERS: PCP Family Medicine; Referring Provider Nurse Practitioner Family; Visit Provider Nurse Practitioner Family
DX: R06.09 Other forms of dyspnea (principal); Z95.5 Presence of coronary angioplasty implant and graft; E78.5 Hyperlipidemia, unspecified
CPT/HCPCS: 36415; 80048; 83880; 85025

== ENCOUNTER → 2023-03-05 | Outpatient (CLI) | payer MEDICARE, OTHER, SELFPAY | END | disposition home or self-care (01) | LOC: LAB 11:56 → LABSPEC 11:57 | PROVIDERS: PCP Family Medicine; Referring Provider Family Medicine; Visit Provider Family Medicine | DX: R30.0 Dysuria (principal) | CPT/HCPCS: 87077; 87086; 87088; 87186 ==

== ENCOUNTER → 2023-06-12 | Outpatient (CLI) | payer MEDICARE, OTHER, SELFPAY ==
[2023-06-12 12:14] LABS: Absolute Lymphocyte Count 1.01 X10^3/uL (0.83-4.51); Basophil# 0.02 X10^3/uL; Basophil% 0.4 % (0-1); Eosinophil# 0.14 X10^3/uL; Eosinophils% 2.5 % (0-5); Hematocrit 39.3 % (37-47); Hemoglobin 12.2 g/dL (12.0-15.0); Lymphocyte # 1.01 X10^3/ul (0.83-4.51); Lymphocyte % 18.3 % (19-41); Mean Corpuscular Hgb 29.8 pg (27.0-32.0); Mean Corpuscular Volume 95.9 fL (81-99); Mean Platelet Vol. 11.6 fl (6.2-12.0); Monocyte% 7.2 % (0-10); NRBC Flagged by Analyzer 0 % (0-5); Neutrophil # 3.95 X10^3/uL (2.7-7.7); Neutrophil % 71.4 % (47-70); Platelet Count 162 K/mm3 (150-450); RBC Distribution Width CV 15.5 % (11.6-14.6); RBC Distribution Width SD 54.4 fl (35.1-43.9); White Blood Count 5.5 K/mm3 (4.4-11.0)
[2023-06-12 12:49] LABS: Vitamin B12 366 pg/mL (211-911)
[2023-06-12 13:16] LABS: AST(SGOT) 25 U/L (15-37); Alanine Aminotransfer ALT/SGPT 23 U/L (13-56); Albumin, Serum 3.8 g/dL (3.2-5.0); Alkaline Phosphatase 53 U/L (45-117); Anion Gap 3 (5-15); BUN 16 mg/dL (7-18); BUN/Creat Ratio 13.2 RATIO (10-20); Chloride 108 mmol/L (98-107); Creatinine, Serum 1.21 mg/dL (0.55-1.02); EST Glomerular Filtration Rate 45 mL/min (>60); Est Glom Filt Rate - Afr Amer 55 mL/min (>60); Free T3 1.4 pg/mL (2.18-3.98); Globulin 3.7 g/dL (2.2-4.2); Glucose 128 mg/dL (74-106); Protein, Total 7.5 g/dL (6.4-8.2); Sodium Level 141 mmol/L (136-145); T4 Free Direct 0.61 ng/dL (0.76-1.46)
== END | disposition home or self-care (01) ==
LOC: MFPLAB 09:51
PROVIDERS: PCP Family Medicine; Visit Provider Family Medicine
DX: E03.9 Hypothyroidism, unspecified (principal); I10 Essential (primary) hypertension; E53.8 Deficiency of other specified B group vitamins
CPT/HCPCS: 36415; 80053; 82607; 82746; 84439; 84443; 84481; 85025

== ENCOUNTER → 2023-06-29 | Outpatient (CLI) | payer MEDICARE, OTHER, SELFPAY ==
[2023-06-29 10:18] LABS: Absolute Lymphocyte Count 0.78 X10^3/uL (0.83-4.51); Absolute Neutrophil Count 3.3 X10^3/uL (2.0-7.7); Basophil# 0.01 X10^3/uL; Basophil% 0.2 % (0-1); Eosinophil# 0.11 X10^3/uL; Eosinophils% 2.4 % (0-5); Hematocrit 38.5 % (37-47); Hemoglobin 11.8 g/dL (12.0-15.0); Lymphocyte # 0.78 X10^3/ul (0.83-4.51); Lymphocyte % 16.7 % (19-41); Mean Corp Hgb Conc 30.6 g/dL (32-36); Mean Corpuscular Hgb 29.1 pg (27.0-32.0); Mean Corpuscular Volume 95.1 fL (81-99); Mean Platelet Vol. 11.1 fl (6.2-12.0); Monocyte# 0.44 X10^3/uL; Monocyte% 9.4 % (0-10); NRBC Flagged by Analyzer 0 % (0-5); Neutrophil # 3.32 X10^3/uL (2.7-7.7); Neutrophil % 71.1 % (47-70); Platelet Count 153 K/mm3 (150-450); RBC Distribution Width CV 15.3 % (11.6-14.6); RBC Distribution Width SD 53.1 fl (35.1-43.9); Red Blood Count 4.05 M/mm3 (4.2-5.4); White Blood Count 4.7 K/mm3 (4.4-11.0)
[2023-06-29 10:37] LABS: Vitamin B12 385 pg/mL (211-911)
[2023-06-29 11:08] LABS: ALB/GLOB Ratio 0.9 RATIO (0.9-2.4); AST(SGOT) 20 U/L (15-37); Alanine Aminotransfer ALT/SGPT 26 U/L (13-56); Albumin, Serum 3.4 g/dL (3.2-5.0); Alkaline Phosphatase 48 U/L (45-117); Anion Gap 8 (5-15); BUN 14 mg/dL (7-18); BUN/Creat Ratio 12.6 RATIO (10-20); Calcium,Total 8.7 mg/dL (8.5-10.1); Chloride 109 mmol/L (98-107); Creatinine, Serum 1.11 mg/dL (0.55-1.02); EST Glomerular Filtration Rate 50 mL/min (>60); Est Glom Filt Rate - Afr Amer 61 mL/min (>60); Free T3 1.7 pg/mL (2.18-3.98); Globulin 3.7 g/dL (2.2-4.2); Glucose 126 mg/dL (74-106); Protein, Total 7.1 g/dL (6.4-8.2); Sodium Level 142 mmol/L (136-145); T4 Free Direct 0.78 ng/dL (0.76-1.46)
== END | disposition home or self-care (01) ==
LOC: MFPLAB 08:36
PROVIDERS: PCP Family Medicine; Visit Provider Family Medicine
DX: E53.8 Deficiency of other specified B group vitamins (principal); E03.9 Hypothyroidism, unspecified; I10 Essential (primary) hypertension
CPT/HCPCS: 36415; 80053; 82607; 82746; 84439; 84443; 84481; 85025

== ENCOUNTER 2023-12-11 10:55 | Emergency (ER) | payer MEDICARE, OTHER, SELFPAY ==
[2023-12-11 10:56] VITALS: BP 133/102; PULSE 73; RESP 14; TEMP 36.6; O2SAT 98; BMI 27.1
--- NOTE | 2023-12-11 11:23 | CT_ITS ---
STUDY: CT ABDOMEN AND PELVIS WITH CONTRAST REASON FOR EXAM: Female, 82 years old. RLQ Pain RADIATION DOSAGE (If Supplied By Facility): CTDIvol = ( 12.61 ) mGy, DLP = ( 425.96 ) mGycm TECHNIQUE: Transaxial images were obtained from the dome of the diaphragm to the symphysis pubis without oral contrast. IV 100mL Isovue-300 was administered. Sagittal and coronal images were reconstructed. Individualized dose optimization techniques were used for this CT. COMPARISON: Comparison is made with prior study dated April 26, 2020. FINDINGS: The visualized lung bases are unremarkable. Coronary artery calcification. Normal liver. The patient status post cholecystectomy. Normal spleen. Tiny cystic changes are seen in the head of the pancreas. Common bile duct measures 1 cm in transverse dimension. Normal bilateral adrenal glands. Normal right kidney. Normal left kidney. Normal visualized stomach. Normal small intestine. There are scattered colonic diverticula consistent with diverticulosis. The appendix is visualized and appears normal. There is diffuse atherosclerotic calcification of the abdominal aorta and its major visceral branches, without a demonstrated aneurysm. Normal inferior vena cava. Normal retroperitoneum. Normal urinary bladder. Normal abdominal wall. There are diffuse degenerative changes of the visualized lumbar spine. Prior fusion of the lower lumbar spine. CT/Abdomen/Pelvis W IV Cont ONLY IMPRESSION: Status post cholecystectomy. Tiny cystic changes are seen in the pancreas. The common bile duct measures 1 cm in transverse dimension. Electronically Signed: Franco Garcia MD at 13:14 EDT ,
--- NOTE | 2023-12-11 11:26 | EX.ED.DYSGE1 ---
HPI History of Present Illness Chief Complaint: Abd Pain Informant: patient and spouse/S.O. Narrative Narrative: 82-year-old female presenting to the emergency room with chief complaint of right lower quadrant abdominal pain. Patient states she went to see her primary care today for evaluation of her hypertension and for right leg pain. Patient has a prior history of spinal stenosis and reports a burning pain down the leg. Today it is more pronounced from the knee to the toes. She denies any foot drop loss of sensation or bowel or bladder control issues. She states that she has had some diarrhea recently. However she tells me that she had a normal bowel movement prior to going to her doctor's office but told nursing she had diarrhea. She denies any fevers. She states that her abdomen was not hurting but when the doctor pushed on her abdomen it was tender. She states she has not had anything to eat or drink today because her doctor wanted blood work. I see in the computer white count of 7.2 hemoglobin 13.7 platelet count 195. CMP shows normal liver enzymes alk phos and bilirubin. Glucose 130 creatinine 1.07. PFSH PFS Medical History DAGO (acute kidney injury) Atherosclerosis of coronary artery of [place] heart without angina pectoris Essential hypertension GERD (gastroesophageal reflux disease) Hematoma History of throat cancer HLD (hyperlipidemia) Hypertension Hypothyroidism Hypothyroidism Lumbago Medication reaction Osteoporosis Presence of stent in coronary artery (~09/19/22) Home Medications cholecalciferol (vitamin D3) 50 mcg (2,000 unit) tablet 50 mcg PO DAILY SUPPLEMENT 09/19/22 [History Last Taken 09/18/22] levothyroxine 25 mcg tablet 25 mcg PO DAILY thyroid 10/18/22 [History Last Taken Unknown] aspirin 81 mg chewable tablet 81 mg PO ONCE #90 tabs 03/23/23 [Rx Last Taken Unknown] carvedilol 3.125 mg tablet 3.125 mg PO BID heart #180 tabs 03/23/23 [Rx Last Taken Unknown] rosuvastatin 10 mg tablet 10 mg PO DAILY #90 tabs 03/23/23 [Rx Last Taken Unknown] telmisartan 20 mg tablet 20 mg PO DAILY blood pressure #90 tabs 03/23/23 [Rx Last Taken Unknown] coQ10 (ubiquinol) 100 mg capsule (Qunol James CoQ10) 200 mg PO DAILY 09/25/23 [History Last Taken Unknown] Allergy/AdvReac Type Severity Reaction Status Date / Time No Known Allergies Allergy Verified 12/11/23 10:56 Surgical History H/O spinal fusion Presence of coronary angioplasty implant and graft (~09/19/22) Social History Smoking Status: Never smoker alcohol intake: never substance use type: does not use caffeine: Yes Type: tea Number of servings: 3 ROS ROS ED Constitutional Constitutional ED: Denies chills or weight loss Eyes Eyes: Denies change in vision or diplopia ENT ENT ED: Denies ear pain, rhinorrhea or sore throat Cardiovascular Cardiovascular: Denies chest pain, orthopnea, palpitations or racing heartbeat Respiratory/Chest Respiratory/Chest: Denies cough, dyspnea or orthopnea Gastrointestinal Gastrointestinal: Reports abdominal pain and diarrhea; Denies nausea or vomiting Genitourinary Genitourinary ED: Denies dysuria, hematuria or urinary frequency Musculoskeletal Musculoskeletal: Reports back pain; Denies arthralgias or myalgias Integumentary Denies abscess or rash Neurologic Neurologic: Reports other Details: Burning pain right leg ; Denies headache(s) or weakness Psychiatric Psychiatric: Denies anxiety, depression, suicidal ideation or suicidal thoughts Endocrine Endocrinology: Denies polydipsia, polyphagia or polyuria Allergic/Immunologic Allergic/Immunologic ED: Denies mouth swelling, tongue swelling or urticaria EXAM Physical Exam Const Vital Signs: 12/11/23 10:56 12/11/23 12:55 Temperature 98 F Temperature Source Temporal Pulse Rate 73 76 Respiratory Rate 14 14 Blood Pressure 133/102 H 180/77 H Blood Pressure Mean 112 111 Pulse Ox 98 99 Oxygen Delivery Method Room Air Room Air Positive well nourished and well developed General Appearance ED: well developed HEENT Reports normocephalic, head/scalp atraumatic and moist mucous membranes Eyes PERRL and EOMs intact bilaterally Neck no lymphadenopathy, supple and no JVD Resp normal respiratory effort and clear to auscultation bilaterally Cardio regular rate, regular rhythm and no murmurs GI Inspection: Negative for abdominal distention Auscultation: normoactive bowel sounds Palpation: soft, tender RLQ and guarding; Negative for rebound tenderness present Back/Spine no CVA tenderness and normal ROM Extremity normal to inspection General Extremety ED: Negative for edema General Extremity: Negative for edema Neuro oriented x3 and CN's II-XII intact bilaterally Sensorium / Orientation: alert Motor Exam: strength 5/5 throughout Psych mental status grossly normal Mood & Affect: Negative for depressed or tearful Skin no rashes or lesions noted and no wounds MDM MDM MDM Narrative Medical decision making narrative: I reviewed the patient's outpatient labs. Normal white count. Normal creatinine and normal LFTs. Urinalysis demonstrated 25-50 white cells 1+ bacteria negative nitrates positive leukocyte Estrace. This was sent for culture. As mentioned before the patient is asymptomatic. No frequency no dysuria no suprapubic pain there is no fever. At this point we will await culture and then reassess how she is feeling if the culture is positive. CT of the abdomen pelvis was obtained which does not demonstrate any appendicitis. There is a small left inguinal hernia noted, small right renal cyst, prior cholecystectomy, and chronic changes seen in the pancreatic head. I spoke with the patient's primary care doctor as well as the patient and her . At this point she will be discharged home. Primary care will be following up with the patient. History & Record Review Discussion w/independent historian: Patient and Significant other Lab Data Attestation: I reviewed the patient's lab results. Labs: Laboratory Results - last 24 hr 12/11/23 11:48 Urine Color Straw Urine Clarity Clear Urine pH 7.0 Ur Specific [place] 1.010 Urine Protein Negative Urine Glucose (UA) Normal Urine Ketones Negative Urine Occult Blood 10 H Urine Nitrite Negative Urine Bilirubin Negative Urine Urobilinogen Normal Ur Leukocyte Esterase 500 H Urine RBC 0-5 SEEN Urine WBC 25-50 SEEN Ur Squamous Epith Cells 0-5 SEEN Urine Bacteria 1+ Urine Mucus 0 SEEN Radiography Diagnostic Testing: Clinical Impression(s) from Imaging Studies Abdomen/Pelvis CT 12/11/23 11:23 IMPRESSION: Status post cholecystectomy. Tiny cystic changes are seen in the pancreas. The common bile duct measures 1 cm in transverse dimension. Electronically Signed: Franco Garcia MD at 13:14 EDT , Management Discussion w/another healthcare provider: On[facility] Specialist (PCP (Dr. Andrés Sagastume)) Discharge Plan Triage Chief Complaint: Abd Pain ED Provider: Alberto Hernandez Dx/Rx/DC Orders Clinical Impression: Spinal stenosis, Essential hypertension, Abdominal pain Instructions: Abdominal Pain Prescriptions: No Action levothyroxine 25 mcg tablet 25 mcg PO DAILY aspirin 81 mg tablet,chewable 81 mg PO ONCE Qty: 90 3RF carvedilol 3.125 mg tablet 3.125 mg PO BID Qty: 180 3RF rosuvastatin 10 mg tablet 10 mg PO DAILY Qty: 90 3RF Hold Instructions: 09/25/2023- myalgia telmisartan 20 mg tablet 20 mg PO DAILY Qty: 90 3RF coQ10 (ubiquinol) [Qunol James CoQ10] 100 mg capsule 200 mg PO DAILY cholecalciferol (vitamin D3) 50 mcg (2,000 unit) Tablet 50 mcg PO DAILY Primary Care Provider: Andrés Sagastume Referrals: Andrés Sagastume MD [Primary Care Provider] - [facility] appointment Disposition Disposition: Home, Self Care
[2023-12-11 12:02] LABS: Mucous, Urine 0 SEEN /hpf (<or=2+)
[2023-12-11 12:06] LABS: Color, Urine Straw (Yellow); Glucose, Dipstick Normal (Normal); Ketone-Dipstick Negative (Negative); Leukocyte Esterase-Dipstick 500 /ul (Negative); Nitrite-Dipstick Negative (Negative); Occult Blood-Urine 10 /ul (Negative); Protein-Dipstick Negative (Negative); Urine Bilirubin Dipstick Negative (Negative); Urine Clarity Clear (Clear); Urine Urobilinogen Normal (Normal)
[2023-12-11 12:14] LABS: Bacteria 1+ /hpf (None Seen); Red Blood Cells-Urine 0-5 SEEN /hpf (0-5); Squamous Epithelial Cells - UA 0-5 SEEN /hpf (5-10); White Blood Cells 25-50 SEEN /hpf (0-5)
[2023-12-11 12:55] VITALS: BP 180/77; PULSE 76; RESP 14; O2SAT 99
[2023-12-11 13:42] VITALS: BP 162/92; PULSE 79; RESP 14; TEMP 36.5; O2SAT 99
== END 2023-12-11 13:45 | disposition home or self-care (01) ==
PROVIDERS: Emergency Provider Emergency Medicine; PCP Family Medicine; Visit Provider Emergency Medicine
DX: M48.00 Spinal stenosis, site unspecified (principal); R10.31 Right lower quadrant pain; I10 Essential (primary) hypertension; I25.10 Atherosclerotic heart disease of native coronary artery without angina pectoris; Z95.5 Presence of coronary angioplasty implant and graft
CPT/HCPCS: 74177; 81001; 87086; 87088; 99282; Q9967; A4216

== ENCOUNTER → 2023-12-11 | Outpatient (CLI) | payer MEDICARE, OTHER, SELFPAY ==
[2023-12-11 10:42] LABS: Absolute Lymphocyte Count 1.56 X10^3/uL (0.83-4.51); Basophil# 0.02 X10^3/uL; Basophil% 0.3 % (0-1); Eosinophil# 0.09 X10^3/uL; Eosinophils% 1.2 % (0-5); Hematocrit 43.4 % (37-47); Hemoglobin 13.7 g/dL (12.0-15.0); Lymphocyte # 1.56 X10^3/ul (0.83-4.51); Lymphocyte % 21.6 % (19-41); Mean Corp Hgb Conc 31.6 g/dL (32-36); Mean Corpuscular Hgb 28.8 pg (27.0-32.0); Mean Corpuscular Volume 91.4 fL (81-99); Mean Platelet Vol. 11.1 fl (6.2-12.0); Monocyte# 0.56 X10^3/uL; Monocyte% 7.7 % (0-10); NRBC Flagged by Analyzer 0 % (0-5); Neutrophil # 4.97 X10^3/uL (2.7-7.7); Neutrophil % 68.8 % (47-70); Platelet Count 195 K/mm3 (150-450); RBC Distribution Width CV 15.3 % (11.6-14.6); RBC Distribution Width SD 51.6 fl (35.1-43.9); Red Blood Count 4.75 M/mm3 (4.2-5.4); White Blood Count 7.2 K/mm3 (4.4-11.0)
[2023-12-11 11:03] LABS: AST(SGOT) 20 U/L (15-37); Alanine Aminotransfer ALT/SGPT 18 U/L (13-56); Albumin, Serum 3.8 g/dL (3.2-5.0); Alkaline Phosphatase 55 U/L (45-117); Anion Gap 7 (5-15); BUN 14 mg/dL (7-18); BUN/Creat Ratio 13.1 RATIO (10-20); CRP 4.22 mg/L (0.0-3.0); Calcium,Total 9.4 mg/dL (8.5-10.1); Chloride 106 mmol/L (98-107); Creatinine, Serum 1.07 mg/dL (0.55-1.02); EST Glomerular Filtration Rate 52 mL/min (>60); Est Glom Filt Rate - Afr Amer 63 mL/min (>60); Glucose 130 mg/dL (74-106); Potassium 4.4 mmol/L (3.5-5.1); Protein, Total 7.8 g/dL (6.4-8.2); Sodium Level 140 mmol/L (136-145)
[2023-12-11 19:58] LABS: Erythrocyte Sedimentation Rate 10 mm/hr (0-30)
== END | disposition home or self-care (01) ==
LOC: MFPLAB 10:09
PROVIDERS: PCP Family Medicine; Visit Provider Family Medicine
DX: R10.31 Right lower quadrant pain (principal); I10 Essential (primary) hypertension; M48.00 Spinal stenosis, site unspecified; I25.10 Atherosclerotic heart disease of native coronary artery without angina pectoris; Z95.5 Presence of coronary angioplasty implant and graft
CPT/HCPCS: 36415; 74177; 80053; 81001; 85025; 85652; 86140; 87086; 87088; 99282; Q9967; A4216

== ENCOUNTER → 2024-01-03 | Outpatient (CLI) | payer MEDICARE, OTHER, SELFPAY ==
[2024-01-03 15:40] LABS: T4 Free Direct 0.93 ng/dL (0.76-1.46); Thyroid Stim Hormone (TSH) 7.47 uIU/mL (0.358-3.74)
== END | disposition home or self-care (01) ==
LOC: MFPLAB 12:13
PROVIDERS: PCP Family Medicine; Visit Provider Family Medicine
DX: E03.9 Hypothyroidism, unspecified (principal); R73.03 Prediabetes
CPT/HCPCS: 36415; 83036; 84439; 84443

== ENCOUNTER 2024-01-11 12:00 | Outpatient (RCR) | payer MEDICARE, OTHER, SELFPAY ==
--- NOTE | 2023-12-20 12:00 | HP.PTEVAL ---
Patient's Visit Information Visit Information Visit Information: BUD DIAMOND is a 82 year old F referred to Physical Therapy by Dr. Andrés Sagastume MD with a diagnosis of R leg pain, spinal stenosis. Date of Evaluation: 12/20/23 Physical Therapist: Andrés Rodríguez, DPT, OCS, CSCS Visit Plan Frequency: 3x /Week Duration: 4-6 Weeks Plan: 3x/week for 3-6 weeks 1. ,manual therapy for R hip ROM and mobs for pain and ROM flexion and rotation and extension, MH 2. strength hips and core to HEP STM to R hip mm prior Subjective Subjective: R groin pain , checked for appendix and it was Ok, had it for months. R leg has hurt for a while and burning groing and upper leg and into LB. It has hurt for years. Had PT yrs ago did not help. Had meds but did not take as it made her dizzy last year. Not pain management or back doctor. Has not tried exercises for it. No regular exercises. Sleep is not a big problem, sleeps 7 hours but pain does wake up if lies too long, tries to sleep on side. Not employed. basic ADLS can do them. 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 Not better sitting. Walking is worse than sitting. Activities avoided: stooping coming up is hard weak and painful. No bowel or bladder problems Pain R LB, groin , leg: Pain Intensity (Out of 10): 5 Pain Intensity Range: 2 and 8 Comment: worse walking Objective Objective: Walks i but with large r antalgia and avoids R hip extension, short R stance time. Trasnfers I bed and chair. Steps reciprocally up and down, slight pain B legs. LB AROM ext min limited and flexion mod limited no pain, SB R slight pain and L is OK. reflexes 2/3 patella and achilles Sensation is WNL to gross light touch in LE HS and quads and psoas all mod tight strength hips 3+, limited R hip extension, knees 4- and ankles 4- ROM R hip limited flexion to 90 and pain vs 115 on L, er 45 R and 50 L, ir painful R and 7 and L is 15, extensikon 3 R and 10 L. + MONO slightly and maximally + FADDIR, - slump and - SLR testing. Balance/Special Test Scores Lower Extremity Functional Score: 17 Goals Goal 1:: LB and hip pain 2/10 at worst adn 75% improved Goal Time Frame: 4-6 Weeks Goal 2:: I appropriate HEP to limit future problems Goal Time Frame: 4-6 Weeks Goal 3:: walk without [id number] 50 feet Goal Time Frame: 4-6 Weeks Goal 4:: LEFS score 45 Goal Time Frame: 4-6 Weeks Rehabilitation Potential Physical Therapy Diagnosis: R leg pain and antalgia limiting Rehabilitation Potential: Good Anticipated Interventions Patient/Client Instruction: Educate patient on: Condition and Plan of Care For the Purpose of:: To decrease pain, To increase ROM, To improve nutrient delivery to tissue, To improve ability of physical actions for home/community/work/leisure, To improve gait and locomotor functions and To reduce risk of recurrence Therapeutic Exercise to Include: Strength training, Flexibilty training, Gait and locomotor training, Passive ROM, Active ROM and Dynamic Lumbar Stabilization For the Purpose of:: To decrease pain, To increase ROM, To improve nutrient delivery to tissue, To increase tolerance to activity/condition/position, To improve ability of physical actions for home/community/work/leisure and To improve gait and locomotor functions Manual Therapy Techniques to Include: Mobilization, Passive ROM and Soft tissue mobilization For the Purpose of:: To decrease pain, To increase ROM, To improve nutrient delivery to tissue and To increase oxygenation perfusion Thermo therapy (hot pack): Yes For the Purpose of:: To decrease pain, To increase ROM and To improve nutrient delivery to tissue Text: Thank you for the opportunity to evaluate your patient. For Medicare and Medicare HMO plans, please review the plan of care and approve it. It will need to be FAXED BACK to us at [phone] for Medicare purposes. For Medicare only, by signing this I certify the plan of care. Please let me know if there are questions or concerns regarding this plan of care. Physician Signature: Date:
--- NOTE | 2024-01-11 12:25 | HP.PTDCSUM ---
Discharge Summary D/C summary: It has been my pleasure to treat BUD DIAMOND referred by Dr. Andrés Saagstume MD, with the diagnosis of R leg pain, spinal stenosis for a total of 7 visit(s). Discharge Date: 01/11/24 Please see the following information for a summary of their discharge status. Subjective Subjective: Feel good when i leave therapy. Muscles ache allt he time. Mostly R barrett bone mcgregor and posterior hip. Pain in hip to 5/10 and it still wakes her up at night. Get cramps and olivia horses. Has some numbing cream which helps for 5 minutes. Activities are pretty much what ever she wants. Had pain management 10 yrs ago. Injections did help back then . Pain R LB, groin , leg: Pain Intensity (Out of 10): 5 Overall Improvement % Improvement: 10 Objective Objective/Function: R hip is + FADDIR dn painful with IR and flexion in posterior hip wreaking of Hip OA. Short L step length avoiding hip ext r slightly. Steps reciprocally without pain today. Not improving overall with any lasting relief. Goals Goal 1:: LB and hip pain 2/10 at worst adn 75% improved Goal Progress: Not Progressing Goal 2:: I appropriate HEP to limit future problems Goal Progress: Goal Met Goal 3:: walk without [id number] 50 feet Goal Progress: Not Progressing Goal 4:: LEFS score 45 Goal Progress: Not Progressing Plan Plan: d/c, pt to return to doctor for next medical step. This therapists would consider R hip x ray to r/o OA and then return to pain management for options or ortho. D/C Information Discharge Comments: Back to doctor for next step. d/c sentence: If there are questions or concerns regarding this patient's physical therapy, please feel free to call me at [phone]. Thank you for the referral of this patient. Sincerely, Andrés Rodríguez, DPT, OCS, CSCS Balance/Gait/Functional tests Balance/Special Test Scores Oswestry Low Back Score: 26 Lower Extremity Functional Score: 17 Improvement % Improvement: 10
== END 2024-01-11 15:01 | disposition home or self-care (01) ==
LOC: PT 12:00
PROVIDERS: PCP Family Medicine; Referring Provider Family Medicine; Visit Provider Family Medicine
DX: R10.31 Right lower quadrant pain (principal); M79.604 Pain in right leg; M25.551 Pain in right hip; M48.00 Spinal stenosis, site unspecified
CPT/HCPCS: 97110; 97140; 97161; 97164

== ENCOUNTER → 2024-05-20 | Outpatient (CLI) | payer MEDICARE, OTHER, SELFPAY ==
[2024-05-20 09:35] LABS: AST(SGOT) 15 U/L (15-37); Alanine Aminotransfer ALT/SGPT 14 U/L (13-56); Albumin, Serum 3.4 g/dL (3.2-5.0); Alkaline Phosphatase 56 U/L (45-117); Bilirubin, Direct 0.14 mg/dL (0.00-0.30); Cholesterol 221 mg/dL (200); Globulin 3.8 g/dL (2.2-4.2); High Density Lipoprotein 39 mg/dL; Protein, Total 7.2 g/dL (6.4-8.2); Triglycerides 264 mg/dL; Very Low Density Lipoprotein 53 mg/dL (5-40)
== END | disposition home or self-care (01) ==
LOC: LAB 08:00
PROVIDERS: PCP Family Medicine; Referring Provider Nurse Practitioner Family; Visit Provider Nurse Practitioner Family
DX: E78.5 Hyperlipidemia, unspecified (principal); Z95.5 Presence of coronary angioplasty implant and graft
CPT/HCPCS: 36415; 80061; 80076

== ENCOUNTER → 2024-07-17 | Outpatient (CLI) | payer MEDICARE, OTHER, SELFPAY ==
[2024-07-17 12:03] LABS: Absolute Neutrophil Count 3.7 X10^3/uL (2.0-7.7); Basophil# 0.01 X10^3/uL; Basophil% 0.2 % (0-1); Eosinophil# 0.03 X10^3/uL; Eosinophils% 0.5 % (0-5); Hemoglobin 12.1 g/dL (12.0-15.0); Lymphocyte % 21.7 % (19-41); Mean Corpuscular Hgb 28.3 pg (27.0-32.0); Mean Corpuscular Volume 91.3 fL (81-99); Mean Platelet Vol. 11.3 fl (6.2-12.0); Monocyte# 0.54 X10^3/uL; Monocyte% 9.8 % (0-10); NRBC Flagged by Analyzer 0 % (0-5); Neutrophil # 3.74 X10^3/uL (2.7-7.7); Neutrophil % 67.6 % (47-70); Platelet Count 192 K/mm3 (150-450); RBC Distribution Width CV 14.5 % (11.6-14.6); RBC Distribution Width SD 48.6 fl (35.1-43.9); Red Blood Count 4.27 M/mm3 (4.2-5.4); White Blood Count 5.5 K/mm3 (4.4-11.0)
[2024-07-17 12:15] LABS: Vitamin D,25 Hydroxy 31.4 ng/mL
[2024-07-17 12:37] LABS: Anion Gap 6 (5-15); BUN 14 mg/dL (7-18); BUN/Creat Ratio 13.6 RATIO (10-20); Calcium,Total 9.4 mg/dL (8.5-10.1); Chloride 108 mmol/L (98-107); Creatinine, Serum 1.03 mg/dL (0.55-1.02); EST Glomerular Filtration Rate 54 mL/min (>60); Est Glom Filt Rate - Afr Amer 66 mL/min (>60); Free T3 2.3 pg/mL (2.18-3.98); Glucose 106 mg/dL (74-106); Potassium 3.8 mmol/L (3.5-5.1); Sodium Level 140 mmol/L (136-145); T4 Free Direct 1.42 ng/dL (0.76-1.46); Thyroid Stim Hormone (TSH) 0.114 uIU/mL (0.358-3.740)
[2024-07-17 12:40] LABS: Microalbumin,Random Urine 15.5 mg/L (NO RANGE EST.); Microalbumin:Creatinine Ratio 46.5 mg/g CRE (<30 mg/g CRE)
== END | disposition home or self-care (01) ==
LOC: MFPLAB 10:18
PROVIDERS: PCP Family Medicine; Visit Provider Family Medicine
DX: N18.32 Chronic kidney disease, stage 3b (principal); E03.9 Hypothyroidism, unspecified
CPT/HCPCS: 36415; 80048; 82043; 82306; 82570; 84439; 84443; 84481; 85025

== ENCOUNTER → 2024-08-28 | Outpatient (CLI) | payer MEDICARE, OTHER, SELFPAY ==
--- NOTE | 2024-08-28 14:02 | BI_ITS ---
MAMMOGRAPHY - BILATERAL SCREENING REASON FOR EXAM: Female, 83 years old. Routine annual screening examination. PERTINENT HISTORY: Non-contributory. TECHNIQUE: Digital bilateral breast harmony (3D mammographic acquisition) in the CC and MLO projections. 2-D mediolateral oblique (MLO) and craniocaudad (CC) views of both breasts were obtained. CAD: Full Field Digital Mammography with Computer Added Detection was performed. COMPARISON: Comparison is made with prior study dated March 25, 2018 and October 13, 2013. FINDINGS: Breast Composition: There are scattered areas of fibroglandular density. There is a 1.1 cm x 1.1 cm well-defined nodule in the slightly inferior medial aspect of the left breast. Correlation with ultrasound is recommended. No other significant abnormalities are identified. BI/SCRN MAMM (CAD)W/HARMONY BILAT IMPRESSION: 1.1 cm x 1.1 cm well-defined nodule in the slightly inferior medial aspect of the left breast. Sonographic correlation recommended. ASSESSMENT CATEGORY: BIRADS Category 0: Incomplete. Need additional imaging evaluation. A letter regarding these results will be sent to the patient by the facility within 30 days. Approximately 10% of breast cancers are not detected by mammography. A normal mammogram should not delay biopsy of a clinically suspicious abnormality. [id number] Electronically Signed: Franco Garcia MD at 14:52 EST ,
--- NOTE | 2024-08-28 14:17 | BD_ITS ---
STUDY: DUAL ENERGY X-RAY ABSORPTIOMETRY / DXA REASON FOR EXAM: Female, 83 years old. [id number] TECHNIQUE: Bone Mineral Density (BMD) measurements of lumbar spine and bilateral hips were obtained. COMPARISON: Comparison is made with prior study dated November 03, 2015. FINDINGS: Lumbar Spine (L1-L4): g/cm2 (1.096) / T-score (1.1) / Z-score (3.7) Findings are suggestive of normal bone density with a low fracture risk. Left Femur Total: g/cm2 (0.820) / T-score (-1.0) / Z-score (1.2) Left Femoral Neck: g/cm2 (0.629) / T-score (-2.0) / Z-score (0.4) Right Femur Total: g/cm2 (0.770) / T-score (-1.4) / Z-score (0.8) Right Femoral Neck: g/cm2 (0.675) / T-score (-1.6) / Z-score (0.9) The T-Scores on the most recent prior examination were: Lumbar Spine (L1-L4): There has been worsening of bone density since the previous examination. Left Femur Total: which represents a worsening of 9.2%. Right Femur Total: which represents a worsening of 4.1%. BD/Dexa Bone Density Study IMPRESSION: The patient is considered osteopenic as outlined below according to World Casey Organization (WHO) criteria with a moderate fracture risk. There has been worsening of bone density since the previous examination. Reference Information: The T-score is the number of standard deviations above or below the standard which is normal for young adults at their peak bone mineral density. The World Health Organization (WHO) interprets the T-scores as follows: Above -1 Normal bone density Between -1 and -2.5 Osteopenia Equal to / or below -2.5 Osteoporosis As a practical clinical guideline, osteopenia may be graded as follows: Mild -1 through -1.5 Moderate -1.6 through -2.0 Severe -2.1 through -2.4 The Z-score is the number of standard deviations above or below age-matched controls. A Z-score of less than -1.5 would be considered abnormal. References: 1. NIH Osteoporosis and Related Bone Diseases www osteo.org 2. International Society for Clinical Densitometry www iscd.org 3. National Osteoporosis Foundation www nof.org Electronically Signed: Franco Garcia MD at 15:22 EST ,
== END | disposition home or self-care (01) ==
LOC: OPBD 13:51
PROVIDERS: PCP Family Medicine; Referring Provider Family Medicine; Visit Provider Family Medicine
DX: N95.9 Unspecified menopausal and perimenopausal disorder (principal); Z12.31 Encounter for screening mammogram for malignant neoplasm of breast
CPT/HCPCS: 77063; 77067; 77080

== ENCOUNTER → 2024-09-01 | Outpatient (CLI) | payer MEDICARE, OTHER, SELFPAY ==
--- NOTE | 2024-09-01 09:00 | US_ITS ---
STUDY: ULTRASOUND BREAST - LEFT REASON FOR EXAM: Female, 83 years old. Abnormal screening mammogram. TECHNIQUE: Axial and longitudinal images of the LEFT breast were performed with a high resolution ultrasound transducer. # OF IMAGES: 23 COMPARISON: Screening mammogram 08/28/2024 FINDINGS: LEFT Breast: Heterogeneous background echotexture. At 7:00, 6 cm nipple, ultrasound confirms an 8 mm oval parallel circumscribed anechoic mass with posterior enhancement consistent with a cyst corresponding the mass mammography.: US/Breast Limited Unilateral IMPRESSION: Ultrasound confirms an 8 mm cyst corresponding to mass seen on mammography. ASSESSMENT CATEGORY: BIRADS Category 2: Benign. A letter regarding these results will be sent to the patient by the facility within 30 days. Electronically Signed: Jacobo Harman MD at 15:37 EST ,
== END | disposition home or self-care (01) ==
LOC: OPUS 08:56
PROVIDERS: PCP Family Medicine; Referring Provider Family Medicine; Visit Provider Family Medicine
DX: R92.8 Other abnormal and inconclusive findings on diagnostic imaging of breast (principal)
CPT/HCPCS: 76642

== ENCOUNTER 2025-02-24 06:39 | Emergency (ER) | payer MEDICARE, OTHER, SELFPAY ==
[2025-02-24 06:40] VITALS: BP 185/84; PULSE 117; RESP 18; TEMP 37.3; O2SAT 97; BMI 27.1
[2025-02-24 06:43] VITALS: BP 185/84; PULSE 117; RESP 18; TEMP 37.3; O2SAT 99
--- NOTE | 2025-02-24 08:01 | US_ITS ---
PROCEDURE: PELVIC (NON ) REASON FOR EXAM: VAGINAL BLEEDING TECHNIQUE: PELVIC (NON ) COMPARISON: None FINDINGS: Measurements: Uterus: 5.9 cm x 4.4 cm x 2.4 cm with a volume of 32.87 mL Endometrial Thickness: The endometrium is thickened measuring 5 mm with the possible endometrial polyp and fluid within the fundal portion of the endometrium. The polyp measures 3 mm x 3 mm x 3 mm. Right Ovary: Not visualized. Left Ovary: Not visualized. TRANSABDOMINAL: Uterus: Normal size, myometrial echotexture, and contour. Endometrium: The endometrium is thickened measuring 5 mm. I suspect a 3 mm x 3 mm x 3 mm endometrial polyp with fluid in the endometrium. Right ovary: Not visualized. Left ovary: Not visualized. Other: No large pelvic mass identified. Transvaginal sonography was performed to better visualize the endometrium. TRANSVAGINAL: Uterus: Anteverted. Endometrium: Endometrial thickening with endometrial polyp and fluid as described. Clinical correlation recommended. Right ovary: Not visualized. Left ovary: Not visualized. Other adnexal findings: None. Cul-de-sac: No free intraperitoneal fluid identified. Tenderness: No tenderness US/Pelvic (Non ) IMPRESSION: Endometrial thickening with fluid and endometrial polyp. Clinical correlation recommended. Reading Location: [place] [id number]
--- NOTE | 2025-02-24 08:01 | EKG12_ITS ---
Test Reason : GENRAL Blood Pressure : */* mmHG Vent. Rate : 94 BPM Atrial Rate : 94 BPM P-R Int : 136 ms QRS Dur : 96 ms QT Int : 358 ms P-R-T Axes : 66 30 71 degrees QTcB Int : 447 ms Normal sinus rhythm Normal ECG Confirmed by MADELEINE HOPSON, REGINO ([id number]), editor department LUCÍA FORTUNE ([id number]) on 02/25/2025 8:23:08 AM Referred By: Confirmed By: REGINO SALVADOR MD
--- NOTE | 2025-02-24 08:03 | ED.VIS.FEGU ---
HPI HPI - Female History of Present Illness Chief Complaint: Vag Bleeding Informant: patient Narrative Narrative: 84-year-old female presenting to the emergency room with vaginal bleeding. Patient states she woke this morning and noticed a blood clot from her vagina in the shower. She states the bleeding is bright red. She states she is not having any pain. She states in November she unexpectedly lost 10 pounds but her weight has been stable since then. She tells me that she has no medical problems. Upon further questioning however she does take medications. There is a history of hypertension hyperlipidemia coronary artery disease and she is on Brilinta for prior cardiac stents. She has not had hysterectomy or oophorectomy. She does not see a workers' compensation magistrate. No history of malignancy. Patient has not had a bowel movement today. She states that yesterday she had a normal bowel movement. She denies black or bloody stools. Patient notes that she tried to urinate but cannot but feels that she needs to. Patient attempted to urinate again with good success. Bladder scan revealed around 500 cc. Patient does feel that she emptied her bladder. Patient does not have a regular workers' compensation magistrate. She states she has not needed a workers' compensation magistrate for many years. [facility] Medical History Essential hypertension Presence of stent in coronary artery (~09/19/22) Hematoma Atherosclerosis of coronary artery of [place] heart without angina pectoris Hypothyroidism Hypertension Medication reaction DAGO (acute kidney injury) History of throat cancer Osteoporosis Lumbago Hypothyroidism HLD (hyperlipidemia) GERD (gastroesophageal reflux disease) Home Medications ?Medication ?Instructions ?Recorded ?Last Taken ?Type cholecalciferol (vitamin D3) 50 50 mcg PO DAILY SUPPLEMENT 09/19/22 09/18/22 History mcg (2,000 unit) tablet telmisartan 20 mg tablet 20 mg PO DAILY blood pressure #90 03/23/23 Unknown Rx tabs levothyroxine 75 mcg tablet 75 mcg PO QDAY 05/08/24 Unknown History ticagrelor 60 mg tablet (Brilinta) 60 mg PO BID #180 tabs 05/08/24 Unknown Rx ezetimibe 10 mg tablet (Zetia) 10 mg PO DAILY #30 tabs 05/30/24 Unknown Rx Allergy/AdvReac Type Severity Reaction Status Date / Time atorvastatin Allergy Severe myalgias Verified 02/24/25 06:40 rosuvastatin AdvReac Severe myalgias Verified 02/24/25 06:40 [id number]-[id number]-[id number] Reductase AdvReac Severe myalgias Verified 02/24/25 06:40 Inhibitor Family History Other Diabetes Heart disease Surgical History H/O spinal fusion Presence of coronary angioplasty implant and graft (~09/19/22) Social History Smoking Status: Never smoker alcohol intake: never substance use type: does not use caffeine: Yes Type: tea Number of servings: 3 ROS ROS ED Constitutional Constitutional ED: Denies chills or weight loss Eyes Eyes: Denies change in vision or diplopia ENT ENT ED: Denies ear pain, rhinorrhea or sore throat Cardiovascular Cardiovascular: Denies chest pain, orthopnea, palpitations or racing heartbeat Respiratory/Chest Respiratory/Chest: Denies cough, dyspnea or orthopnea Gastrointestinal Gastrointestinal: Denies abdominal pain, diarrhea, nausea or vomiting Genitourinary Genitourinary ED: Reports other Details: See history of present illness ; Denies dysuria, hematuria or urinary frequency Musculoskeletal Musculoskeletal: Denies arthralgias or myalgias Integumentary Denies abscess or rash Neurologic Neurologic: Denies headache(s) or weakness Psychiatric Psychiatric: Denies anxiety, depression, suicidal ideation or suicidal thoughts Endocrine Endocrinology: Denies polydipsia, polyphagia or polyuria Allergic/Immunologic Allergic/Immunologic ED: Denies mouth swelling, tongue swelling or urticaria EXAM Physical Exam Const Vital Signs: 02/24/25 06:40 02/24/25 06:43 02/24/25 08:43 Temperature 99.2 F H 99.2 F H 98.8 F Temperature Source Oral Oral Oral Pulse Rate 117 H 117 H 100 Respiratory Rate 18 18 18 Blood Pressure 185/84 H 185/84 H 183/77 H Blood Pressure Mean 117 117 112 Pulse Ox 97 99 98 Oxygen Delivery Method Room Air Room Air Room Air 02/24/25 10:05 Temperature 98.7 F Temperature Source Oral Pulse Rate 86 Respiratory Rate 18 Blood Pressure 169/56 H Blood Pressure Mean 93 Pulse Ox 98 Oxygen Delivery Method Room Air Positive well nourished and well developed General Appearance ED: well developed and NAD HEENT Reports normocephalic, head/scalp atraumatic and moist mucous membranes Eyes PERRL and EOMs intact bilaterally Neck no lymphadenopathy, supple and no JVD Resp normal respiratory effort and clear to auscultation bilaterally Cardio regular rate, regular rhythm and no murmurs Rate: tachycardic GI soft to palpation and non-distended GI Narrative: Patient notes tenderness in the right lower quadrant of her abdomen without guarding or rebound. I would not characterize it as a surgical abdomen Auscultation: normoactive bowel sounds Palpation: soft and tender RLQ; Negative for guarding or rigid Narrative: Pelvic examination performed in the presence of female nurse (Marilou). I do not see any active bleeding or clots. There is no noted significant vaginal discharge. The vaginal mucosa is pink. There are numerous darkened spots that are ovoid in shape and about 2 to 3 mm in length throughout. The cervix does not demonstrate friable tissue. There is no significant tenderness on bimanual examination. Back/Spine no CVA tenderness and normal ROM Extremity normal to inspection General Extremety ED: Negative for edema General Extremity: Negative for edema Neuro oriented x3 and CN's II-XII intact bilaterally Sensorium / Orientation: alert Motor Exam: strength 5/5 throughout Psych mental status grossly normal Mood & Affect: Negative for depressed or tearful Skin no rashes or lesions noted and no wounds MDM MDM MDM Narrative Medical decision making narrative: Differential diagnosis includes but not limited to infection malignancy coagulopathy anemia uterine fibroids dysplasia As the patient was tachycardic on my examination and in triage an EKG was obtained which demonstrates a normal sinus rhythm at a rate of 94 bpm. Her heart rate has subsequently decreased down into the 80s. White count 5.3 with a hemoglobin 11.9 platelet count of 162. LFTs are within normal limits. Glucose of 112. Creatinine is normal at 1. Urinalysis shows relatively clear urine with no obvious infection or gross hematuria. Pelvic ultrasound was obtained. This was read by radiology and reviewed by myself this demonstrates an endometrial thickening of 5 mm and an apparent endometrial polyp (3 x 3 x 3 mm). Please see radiologist read. Case was discussed with on-call workers' compensation magistrate Dr. Car. Patient will need to follow-up in the office. The office will call her today to set up an appointment as I do not see active or heavy bleeding I do not feel the patient necessarily needs to discontinue her Brilinta. She is to notify the office when they set up her appointment that she is on Brilinta and whether or not they want her to continue prior to her appointment History & Record Review Discussion w/independent historian: Patient and Significant other Additional record(s) reviewed:: Prior outpatient record, Prior ED visit and Prior labs Lab Data Attestation: I reviewed the patient's lab results. Labs: Laboratory Results - last 24 hr 02/24/25 02/24/25 06:52 08:50 WBC 5.3 RBC 4.08 L Hgb 11.9 L Hct 36.7 L MCV 90.0 MCH 29.2 MCHC 32.4 RDW Std Deviation 48.2 H RDW Coeff of Claude 14.6 Plt Count 162 MPV 11.3 Immature Gran % (Auto) 0.400 Neut % (Auto) 66.8 Lymph % (Auto) 21.3 [place] % (Auto) 10.5 H Eos % (Auto) 0.8 Baso % (Auto) 0.2 Absolute Neuts (auto) 3.5 Absolute Lymphs (auto) 1.12 Nucleated RBC % 0 Sodium 142 Potassium 3.8 Chloride 106 Carbon Dioxide 21.1 Anion Gap 14 BUN 18 Creatinine 1.00 Estim Creat Clear Calc 38.32 L Est GFR (MDRD) Non-Af 56 L BUN/Creatinine Ratio 17.5 Glucose 112 H Calcium 9.1 Total Bilirubin 0.52 Direct Bilirubin 0.20 AST 19 ALT 11 Alkaline Phosphatase 57 Total Protein 6.9 Albumin 4.1 Globulin 2.8 Urine Color Straw Urine Clarity Clear Urine pH 7.0 Ur Specific [place] 1.010 Urine Protein 15 H Urine Glucose (UA) Normal Urine Ketones Negative Urine Occult Blood 50 H Urine Nitrite Negative Urine Bilirubin Negative Urine Urobilinogen Normal Ur Leukocyte Esterase 25 H Urine RBC 0-5 SEEN Urine WBC 0 SEEN Ur Squamous Epith Cells 0 SEEN Urine Bacteria 0 SEEN Urine Mucus 0 SEEN Radiography Diagnostic Testing: Clinical Impression(s) from Imaging Studies Pelvis Ultrasound 02/24/25 08:01 IMPRESSION: Endometrial thickening with fluid and endometrial polyp. Clinical correlation recommended. Reading Location: [place] [id number] Management Discussion w/another healthcare provider: [employer] (Dr Car) Discharge Plan Triage Chief Complaint: Vag Bleeding ED Provider: Alberto Hernandez Dx/Rx/DC Orders Clinical Impression: Abnormal vaginal bleeding, Endometrial polyp Prescriptions: No Action telmisartan 20 mg tablet 20 mg PO DAILY Qty: 90 3RF levothyroxine 75 mcg tablet 75 mcg PO QDAY Brilinta 60 mg tablet 60 mg PO BID Qty: 180 3RF cholecalciferol (vitamin D3) 50 mcg (2,000 unit) Tablet 50 mcg PO DAILY ezetimibe [Zetia] 10 mg tablet 10 mg PO DAILY Qty: 30 11RF Primary Care Provider: Andrés Sagastume Referrals: Andrés Sagastume MD [Primary Care Provider] - Fadia Car MD [Med Staff - Active Staff] - As soon as possible Print Language: Thai Disposition Disposition: Home, Self Care
[2025-02-24 08:12] LABS: Absolute Lymphocyte Count 1.12 X10^3/uL (0.83-4.51); Absolute Neutrophil Count 3.5 X10^3/uL (2.0-7.7); Basophil# 0.01 X10^3/uL; Basophil% 0.2 % (0-1); Eosinophil# 0.04 X10^3/uL; Eosinophils% 0.8 % (0-5); Hematocrit 36.7 % (37-47); Hemoglobin 11.9 g/dL (12.0-15.0); Lymphocyte # 1.12 X10^3/ul (0.83-4.51); Lymphocyte % 21.3 % (19-41); Mean Corp Hgb Conc 32.4 g/dL (32-36); Mean Corpuscular Hgb 29.2 pg (27.0-32.0); Mean Platelet Vol. 11.3 fl (6.2-12.0); Monocyte# 0.55 X10^3/uL; Monocyte% 10.5 % (0-10); NRBC Flagged by Analyzer 0 % (0-5); Neutrophil # 3.51 X10^3/uL (2.7-7.7); Neutrophil % 66.8 % (47-70); Platelet Count 162 K/mm3 (150-450); RBC Distribution Width CV 14.6 % (11.6-14.6); RBC Distribution Width SD 48.2 fl (35.1-43.9); Red Blood Count 4.08 M/mm3 (4.2-5.4); White Blood Count 5.3 K/mm3 (4.4-11.0)
[2025-02-24 08:43] VITALS: BP 183/77; PULSE 100; RESP 18; TEMP 37.1; O2SAT 98
[2025-02-24 08:54] LABS: Bacteria 0 SEEN /hpf (None Seen); Mucous, Urine 0 SEEN /hpf (<or=2+); Squamous Epithelial Cells - UA 0 SEEN /hpf (5-10); White Blood Cells 0 SEEN /hpf (0-5)
[2025-02-24 08:59] LABS: Color, Urine Straw (Yellow); Glucose, Dipstick Normal (Normal); Ketone-Dipstick Negative (Negative); Leukocyte Esterase-Dipstick 25 /ul (Negative); Nitrite-Dipstick Negative (Negative); Occult Blood-Urine 50 /ul (Negative); Protein-Dipstick 15 mg/dl (Negative); Urine Bilirubin Dipstick Negative (Negative); Urine Clarity Clear (Clear); Urine Urobilinogen Normal (Normal)
[2025-02-24 09:05] LABS: AST(SGOT) 19 U/L (<=31); Alanine Aminotransfer ALT/SGPT 11 U/L (<=34); Albumin, Serum 4.1 g/dL (3.4-4.8); Alkaline Phosphatase 57 U/L (35-104); Anion Gap 14 (5-15); BUN 18 mg/dL (4-19); BUN/Creat Ratio 17.5 RATIO (10-20); Calcium,Total 9.1 mg/dL (7.6-11.0); Carbon Dioxide 21.1 mmol/L (21.0-32.0); Chloride 106 mmol/L (98-108); EST Glomerular Filtration Rate 56 (>60); Estimated Creatinine Clearance 38.32 ml/min (50-250); Globulin 2.8 g/dL (2.2-4.2); Glucose 112 mg/dL (70-99); Potassium 3.8 mmol/L (3.3-5.1); Protein, Total 6.9 g/dL (5.9-8.4); Sodium Level 142 mmol/L (133-145); Total Bilirubin 0.52 mg/dL (0.00-1.30)
[2025-02-24 09:07] LABS: Red Blood Cells-Urine 0-5 SEEN /hpf (0-5)
[2025-02-24 10:05] VITALS: BP 169/56; PULSE 86; RESP 18; TEMP 37.1; O2SAT 98
[2025-02-24 10:39] VITALS: BP 188/77; PULSE 85; RESP 18; TEMP 37.1; O2SAT 98
== END 2025-02-24 10:47 | disposition home or self-care (01) ==
PROVIDERS: Emergency Provider Emergency Medicine; PCP Family Medicine; Visit Provider Emergency Medicine
DX: N93.9 Abnormal uterine and vaginal bleeding, unspecified (principal); N84.0 Polyp of corpus uteri; I10 Essential (primary) hypertension; E78.5 Hyperlipidemia, unspecified; E03.9 Hypothyroidism, unspecified; I25.10 Atherosclerotic heart disease of native coronary artery without angina pectoris; M81.0 Age-related osteoporosis without current pathological fracture; Z95.1 Presence of aortocoronary bypass graft; Z79.890 Hormone replacement therapy; Z79.899 Other long term (current) drug therapy
CPT/HCPCS: 76856; 80048; 80076; 81001; 85025; 93005; 99283; A4216

== ENCOUNTER 2025-04-02 07:59 | Day surgery (SDC) | payer MEDICARE, OTHER, SELFPAY ==
--- NOTE | 2025-03-18 09:52 | PCM.HP.BLA ---
History and Physical Date of Admission: 04/02/25 HPI: The patient is a 84 year old female presenting for pre-operative visit. She is scheduled for hysteroscopy D&C with polyp resection, for PMB, thickened endometrium on 04/02/25. Procedure discussed along with risks, benefits and complications. Other alternatives discussed for management. Consent form signed? Yes. 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•Congenital tracheoesophageal fistula, esophageal atresia and stenosis (HCC) esophageal stricutres•DDD (degenerative disc disease), lumbosacral •Diaphragmatic hernia without mention of obstruction or gangrene •Diarrhea •Dysphagia •Esophagitis, unspecified •Esophagitis, unspecified •Essential hypertension •GERD (gastroesophageal reflux disease) •Gout •Hyperparathyroidism, secondary renal (HCC) •Hypothyroidism •Left knee pain •Metabolic syndrome •Osteoporosis, post menopausal •Prediabetes •Pure hypercholesterolemia •Radiculopathy of leg •Spinal stenosis •Tinea cruris •Unspecified hypothyroidism PAST SURGICAL HISTORY PAST SURGICAL HISTORYProcedureLateralityDate•CHOLECYSTECTOMY 2003 Cholecystectomy•COLONOSCOPY FLX DX W/COLLJ SPEC WHEN PFRMD 12/31/2002 Colonoscopy•COLONOSCOPY SCREENING 01/2025•EGD TRANSORAL BIOPSY SINGLE/MULTIPLE 12/18/2006•ESOPHAGOGASTRODUODENOSCOPY TRANSORAL DIAGNOSTIC 08/14/2002 EGD•ESOPHAGOGASTRODUODENOSCOPY TRANSORAL DIAGNOSTIC 08/24/2003 EGD•ESOPHAGOGASTRODUODENOSCOPY TRANSORAL DIAGNOSTIC 11/27/2012 EGD•PAST SURGICAL HISTORY OF vocal chord•PAST SURGICAL HISTORY OF spinal fusion rods placed•REMV CATARACT EXTRACAP,INSERT LENS CURRENT MEDICATIONS Current Outpatient MedicationsMedicationSigDispenseRefill•telmisartan (MICARDIS) 40 mg tabletTake 40 mg by mouth once daily. •levothyroxine (SYNTHROID) 50 mcg tabletTake 50 mcg by mouth once daily. •aspirin 81 mg capTake by mouth. •BRILINTA 60 mg tabletTake 1 tablet by mouth every 12 hours. •ezetimibe (ZETIA) 10 mg tabletTake 1 tablet by mouth every afternoon. •ubidecarenone (ULTRA COQ10 ORAL)Take by mouth once daily. •Cholecalciferol, Vitamin D3, 2,000 unit capTake by mouth once daily. •THERAPEUTIC MULTIVITAMIN TABTake one(1) tablet daily. 0•omeprazole (PRILOSEC) 40 mg capsuleTake 1 capsule by mouth two times a day. (Patient not taking: Reported on 03/17/2025)180 capsule1 No current facility-administered medications for this visit. ALLERGIES: Atorvastatin, Rosuvastatin, and Ldehdhn-Kbz-Ydq Reductase Inhibitors PERSONAL HISTORY: SOCIAL HISTORY Social History Tobacco Use•Smoking status:Never•Smokeless tobacco:NeverVaping Use•Vaping status:Never UsedSubstance Use Topics•Alcohol use:No•Drug use:Never FAMILY HISTORY: FAMILY HISTORY FAMILY HISTORY ProblemRelationAge of Onset•other (alzehimers [Other])Mother •HypertensionMother •Alzheimer's DiseaseMother •HeartFather •Breast CancerSister •HeartBrother •DiabetesBrother •ArthritisMaternal Grandfather •other (CHF)Maternal Grandfather •Ischemic Heart DiseaseMaternal Grandfather REVIEW OF SYMPTOMS: GENERAL: denies fevers or chills ENDOCRINOLOGY: has not been on steroids Cardiology : denies palpitations or chest pain Respiratory: denies SOB or cough Hematology: denies history of prolonged bleeding or easy bruising or VTE Allergy: Denies history of personal or family history of allergy to anesthesia PHYSICAL EXAMINATION: VITALS: Blood pressure 126/76, pulse 75, height 157.5 cm (5' 2"), weight 58.1 kg (128 lb), SpO2 99%. GENERAL: The patient is well nourished, well hydrated in no acute distress. , The patient is oriented to time, place, and person. NECK: Supple. No lynphadenopathy, normal thyroid, no thyromegaly. LUNGS: Clear to auscultation bilaterally. no wheezes, rhonchi or rales HEART: Regular rate and rhythm, Normal heart sounds, and No murmurs or gallops IMPRESSION: PMB, thickened endometrium PLAN: The risks/benefits/alternatives and personal involved for the planned hysteroscopy D&C with polyp resection were reviewed with the patient. Her questions were answered to her satisfaction and she desires to proceed. Consent was signed. I reviewed with her postop instructions and expectations. I have reviewed and updated past medical and surgical history, medications and allergies Assessment & Plan Assessment/Plan (1) PMB (postmenopausal bleeding): (2) Thickened endometrium:
--- NOTE | 2025-03-19 21:01 | PAT.ANESEVAL ---
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 When Was Last Pacemaker Check QUESTION #4 FULL TEXT: You/Your Family Experience fever (hyperthermia) with Anesthesia Last Oral Intake Last Oral intake: Last Oral Intake NPO since Meds taken in AM with sips of water? Meds patient instructed to take am of surgery PONV PONV - needle process felt goods supervisor: PONV - needle process felt goods supervisor Female Yes 03/19/25 08:16 HX of Motion Sickness No 03/19/25 08:16 HX of N/V After Surgery No 03/19/25 08:16 Non-Smoker Yes 03/19/25 08:16 Duration of Surgery greater No 03/19/25 08:16 than 60 minutes Number of Risk Factors 2 03/19/25 08:16 PONV Score Moderate Risk 03/19/25 08:16 Height & Weight Height & Weight: Anesthesia: Height & Weight Height 5 ft 2 in 03/09/25 13:07 Respiratory Assessment Respiratory Assessment - needle process felt goods supervisor: Respiratory Tract Infection Hx - needle process felt goods supervisor Hx Respiratory Tract Infection No 03/19/25 08:16 STOP Sleep Apnea STOP Sleep Apnea - needle process felt goods supervisor: STOP Sleep Apnea - needle process felt goods supervisor Hx Hypertension Yes 03/19/25 08:16 Hx Sleep Apnea No 03/19/25 08:16 CPAP BIPAP Do you snore loudly (louder No 03/19/25 08:16 than talking or can be heard Do you often feel tired/ No 03/19/25 08:16 fatigued/ sleepy during daytime? Has anyone observed you stop No 03/19/25 08:16 breathing during sleep? STOP Results Negative 03/19/25 08:16 QUESTION #5 FULL TEXT : Do you snore loudly (louder than talking or can be heard through closed doors)? Tobacco Use History Tobacco Use History - needle process felt goods supervisor: Tobacco Use History - needle process felt goods supervisor Tobacco Use Non-smoker 02/27/21 07:18 Smoking Status Never smoker 03/19/25 08:16 Hx Tobacco Use No 03/19/25 08:16 Years Smoking Packs Smoked per Day Smoking Cessation Date was within the last 15 years Hx Smoking Cessation Date Hx Smoking Cessation Counseling Hematologic Medial History Hematologic Hx - needle process felt goods supervisor: Hematologic Medical Hx - globe tester Hx of Blood Transfusion No 03/19/25 08:16 Hx of Transfusion in last 3 No 03/19/25 08:16 Months Date of Last Transfusion (if within last 3 months) Ever experience any problems No 03/19/25 08:16 with transfusion(s)? Specify any problems Hx of Preganancy in last 3 No 03/19/25 08:16 Months Nurse Filling Out Transfusion [id number] 03/19/25 08:16 & Questions: Date: 03/19/25 03/19/25 08:16 Time: 08:20 03/19/25 08:16 Patient unable to answer at this time (ie. confused, unrespo /Reproduction History /Reproductive History - needle process felt goods supervisor: /Reproductive Hx- needle process felt goods supervisor Hx Now Gestational Age (in weeks): EDC: Hx Hx Para Hx Section SAB PFSH Medical History (Updated 03/19/25 @ 08:29 by Gordo Mcneill) Chest pain Wears contact lenses Wears dentures Easy bruising Gastric reflux Hoarseness Non-smoker History of stress test History of echocardiogram Cardiology follow-up encounter Essential hypertension Presence of stent in coronary artery (~09/19/22) Hematoma Atherosclerosis of coronary artery of [place] heart without angina pectoris Hypothyroidism Hypertension Medication reaction DAGO (acute kidney injury) History of throat cancer Osteoporosis Lumbago Hypothyroidism HLD (hyperlipidemia) GERD (gastroesophageal reflux disease) Home Medications Medication Instructions Recorded Last Taken Type cholecalciferol (vitamin D3) 50 50 mcg PO DAILY SUPPLEMENT 09/19/22 09/18/22 History mcg (2,000 unit) tablet coenzyme Q10 100 mg tablet 100 mg PO QDAY 03/09/25 Unknown History levothyroxine 50 mcg tablet 50 mcg PO QDAY 03/09/25 Unknown History multivitamin 1 tab PO QAM 03/09/25 Unknown History telmisartan 40 mg tablet 40 mg PO DAILY blood pressure #90 03/09/25 Unknown Rx tabs ezetimibe 10 mg tablet (Zetia) 10 mg PO DAILY #90 tabs 03/12/25 Unknown Rx ticagrelor 60 mg tablet (Brilinta) 60 mg PO BID 03/19/25 Unknown History Allergy/AdvReac Type Severity Reaction Status Date / Time atorvastatin Allergy Severe myalgias Verified 03/19/25 08:14 rosuvastatin AdvReac Severe myalgias Verified 03/19/25 08:14 Pxazfnw-HJV-QuX Reductase AdvReac Severe myalgias Verified 03/19/25 08:14 Inhibitor Family History Other Diabetes Heart disease Surgical History H/O spinal fusion Presence of coronary angioplasty implant and graft (~09/19/22) Social History Smoking Status: Never smoker alcohol intake: never substance use type: does not use caffeine: Yes Type: tea Number of servings: 3 Audit: Pertinent Findings Pertinent Findings EKG Perinent findings: 02/24/2025. Normal sinus rhythm. Stress test pertinent findings: 02/28/2021. EF is 83%. No areas of reversibility are noted to suggest ischemia. No previous infarct. Echo (EF%) pertinent findings: 09/20/2022. EF 55%. RVSP is 27 mmHg. No aortic stenosis is noted. Heart catheterization pertinent findings: 09/19/2022. EF of 55%. OM1 proximal is occluded. OM2 mid 95% stenosis. Left main is a 25 to 50% stenosis. The D1 ostium has a 50% stenosis. 09/19/2022. The lower left main coronary artery has a oblong residual lumen at the 55 to 60% stenosis. Successful PTCA/NATANAEL of the proximal OM1. Successful PTCA/NATANAEL of the mid OM 2. Consult pertinent findings: 03/09/2025. [employer]. 1. Stents x 2 in the coronary arteries–chronic-patient's chest pain is thought to be noncardiac related at this point. Continue current medical therapy. Switch Brilinta to aspirin 81 mg. 2. Hypertension–chronic-elevated today. Increase telmisartan to 40 mg p.o. 3. Preop cardiovascular exam–acute-patient able to climb 4 flights of stairs without chest pain or shortness of breath. No acute ST or T wave changes on EKG of 02/24/2025. Patient may proceed with surgery. Recommendation Anesthesia Recommendation Anesthesia recommendation: OPTIMIZED for anesthesia
[2025-04-02] VITALS (10 sets, daily range): BP systolic 116–181; BP diastolic 72–89; PULSE 65–102; RESP 16–18; TEMP 36.4–36.7; O2SAT 96–99; BMI 22.9
[2025-04-02] MEDS: Lactated Ringers 1,000 ML 15 ML IV (08:42)
--- NOTE | 2025-04-02 08:53 | PCM.PRE.AN2 ---
ASA Classification* ASA Classification ASA Classification: 3 Assessment & Plan Anesthesia* Anesthesia Assessment Anesthesia Assessment: Discussed sedation and/or anesthesia options, risks, benefits, and alternatives with patient/parents/legal guardian/POA. Questions invited. The patient/parents/legal guardian/POA seems to understand and agrees to proceed with anesthesia plan. Reviewed the physical assessment, medical history, allergy history and patient home medications list prior to surgery/procedure/anesthetic and documented any changes. Performed airway and anesthesia risk assessments. Anesthesia Type Anesthesia Type: General and MAC History Source History Obtained from:: Patient and Chart Anesthesia Focused Assessment* Temperature: 98.1 F Pulse Rate: 102 Blood Pressure: 181/83 Respiratory Rate: 18 Pulse Ox: 99 Airway Assessment Mouth opens: >3 cm Mallampati Score: I Teeth Condition: Dentures (removed for surgery) Neck Range of motion (ROM): Full ROM Labs Anesthesia Preop lab: CBC WBC 5.3 K/mm3 (4.4-11.0) 02/24/25 06:52 02/24/25 RBC 4.08 M/mm3 (4.2-5.4) L 02/24/25 06:52 02/24/25 Hgb 11.9 g/dL (12.0-15.0) L 02/24/25 06:52 02/24/25 Hct 36.7 % (37-47) L 02/24/25 06:52 02/24/25 Plt Count 162 K/mm3 (150-450) 02/24/25 06:52 02/24/25 CHEMISTRY Potassium 3.8 mmol/L (3.3-5.1) 02/24/25 06:52 02/24/25 Sodium 142 mmol/L (133-145) 02/24/25 06:52 02/24/25 Magnesium 2.4 mg/dL (1.6-2.6) 09/19/22 09:28 09/19/22 BUN 18 mg/dL (4-19) 02/24/25 06:52 02/24/25 Creatinine 1.00 mg/dL (0.70-1.20) 02/24/25 06:52 02/24/25 Glucose 112 mg/dL (70-99) H 02/24/25 06:52 02/24/25 TSH 0.114 uIU/mL (0.358-3.740) L 07/17/24 10:20 07/17/24 COAG PT 12.8 SECONDS (11.7-14.9) 09/19/22 09:28 09/19/22 Pre-Assessment Diagnosis/Proposed Procedure Planned Operative Procedure(s): hysteroscopy, d&c, polypectomy, symphion Anesthesia History 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 When Was Last Pacemaker Check QUESTION #4 FULL TEXT: You/Your Family Experience fever (hyperthermia) with Anesthesia Last Oral Intake Last Oral intake: Last Oral Intake NPO since 05:00 04/02/25 08:39 Meds taken in AM with sips of Yes 04/02/25 08:39 water? 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 operator Female Yes 03/19/25 08:16 HX of Motion Sickness No 03/19/25 08:16 HX of N/V After Surgery No 03/19/25 08:16 Non-Smoker Yes 03/19/25 08:16 Duration of Surgery greater No 03/19/25 08:16 than 60 minutes Number of Risk Factors 2 03/19/25 08:16 PONV Score Moderate Risk 03/19/25 08:16 Height & Weight Height & Weight: Anesthesia: Height & Weight Height 5 ft 2 in 04/02/25 08:39 Weight: 57 kg 04/02/25 08:39 Body Mass Index (BMI) 22.9 04/02/25 08:39 Respiratory Assessment Respiratory Assessment - tool lathe operator: Respiratory Tract Infection Hx - tool lathe operator Hx Respiratory Tract Infection No 03/19/25 08:16 STOP Sleep Apnea STOP Sleep Apnea - tool lathe operator: STOP Sleep Apnea - tool lathe operator Hx Hypertension Yes 03/19/25 08:16 Hx Sleep Apnea No 03/19/25 08:16 CPAP BIPAP Do you snore loudly (louder No 03/19/25 08:16 than talking or can be heard Do you often feel tired/ No 03/19/25 08:16 fatigued/ sleepy during daytime? Has anyone observed you stop No 03/19/25 08:16 breathing during sleep? STOP Results Negative 03/19/25 08:16 QUESTION #5 FULL TEXT : Do you snore loudly (louder than talking or can be heard through closed doors)? 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 Specify any problems Hx of Preganancy in last 3 No 03/19/25 08:16 Months Nurse Filling Out Transfusion [email or web address] 03/19/25 08:16 & Questions: Date: 03/19/25 03/19/25 08:16 Time: 08:20 03/19/25 08:16 Patient unable to answer at this time (ie. confused, unrespo /Reproduction History /Reproductive History - tool lathe operator: /Reproductive Hx- tool lathe operator Hx Now Gestational Age (in weeks): EDC: Hx Hx Para Hx Section SAB Active Medications Active Medications: Current Medications Generic Name Dose Route Start Last Admin Trade Name Freq PRN Reason Stop Dose Admin Lactated Ringer's 1,000 mls @ 15 mls/hr 04/02/25 08:15 04/02/25 08:42 IV 15 mls/hr .Q48H JOSE L Administration PFSH Medical History Chest pain Wears contact lenses Wears dentures Easy bruising Gastric reflux Hoarseness Non-smoker History of stress test History of echocardiogram Cardiology follow-up encounter Essential hypertension Presence of stent in coronary artery (~09/19/22) Hematoma Atherosclerosis of coronary artery of [place] heart without angina pectoris Hypothyroidism Hypertension Medication reaction DAGO (acute kidney injury) History of throat cancer Osteoporosis Lumbago Hypothyroidism HLD (hyperlipidemia) GERD (gastroesophageal reflux disease) Home Medications Medication Instructions Recorded Last Taken Type cholecalciferol (vitamin D3) 50 50 mcg PO DAILY SUPPLEMENT 09/19/22 09/18/22 History mcg (2,000 unit) tablet coenzyme Q10 100 mg tablet 100 mg PO QDAY 03/09/25 Unknown History levothyroxine 50 mcg tablet 50 mcg PO QDAY 03/09/25 04/01/25 18:30 History multivitamin 1 tab PO QAM 03/09/25 Unknown History telmisartan 40 mg tablet 40 mg PO DAILY blood pressure #90 03/09/25 Unknown Rx tabs ezetimibe 10 mg tablet (Zetia) 10 mg PO DAILY #90 tabs 03/12/25 Unknown Rx ticagrelor 60 mg tablet (Brilinta) 60 mg PO BID 03/19/25 04/02/25 05:30 History Allergy/AdvReac Type Severity Reaction Status Date / Time atorvastatin Allergy Severe myalgias Verified 04/02/25 08:39 rosuvastatin AdvReac Severe myalgias Verified 04/02/25 08:39 [id number] Reductase AdvReac Severe myalgias Verified 04/02/25 08:39 Inhibitor Family History Other Diabetes Heart disease Surgical History H/O spinal fusion Presence of coronary angioplasty implant and graft (~09/19/22) Social History Smoking Status: Never smoker alcohol intake: never substance use type: does not use caffeine: Yes Type: tea Number of servings: 3 Review of Systems (Anesthesia) ROS Narrative System reviewed and no additional complaints, except as documented.
--- NOTE | 2025-04-02 10:15 | EMB_PTH ---
PATIENT: BUD DIAMOND LOC: [facility] [place] U#:[id number] AGE/SX: 84/F ROOM: RE04/02/[address]: Dr. Fadia Car MD : 1940 BED: DIS: 04/02/2025 SPEC #: [id number] RECD: 04/02/25 13:16 STATUS: RAMONA REShira #: [id number] MILADIS: 04/02/25 10:[address]: Fadia Car DEPT: SURGICAL PATHOLOGY RECD BY: Aureliano cShaeffer ENTERED: 04/02/25 14:03 SP TYPE: ENDOM BX/C OTHR DR: Dr. Andrés Sagastume MD Tissues: A - Endometrium, NOS Procedures: Surgery Specimen Level IV HEADER OPERATION: Hysteroscopy, D&C, polypectomy PRE-OP DIAGNOSIS: Dysmenorrhea, abnormal uterine bleeding, adenomyosis, intramural uterine fibroid, arcuate uterus TISSUE SUBMITTED: A- Endometrial curettings and polyp MICROSCOPIC DIAGNOSIS A. Endometrium, "AUB, polyp", hysteroscopy, dilation and curettage, polypectomy: - Benign endometrial polyp. - Cystic atrophy of the endometrium. - Benign cervical squamous mucosa. MICROSCOPIC DESCRIPTION Slides are reviewed. GROSS DESCRIPTION A. Received in formalin labeled with the patient's name and date of . Designated as "endometrial curettings and polyp" is a 2.2 x 1.6 x 0.3 cm aggregate of barton-pink tissue fragments. Entirely submitted in 1 cassette. IN 04/02/2025 CPT:86275
--- NOTE | 2025-04-02 10:23 | DCINST_ITS ---
Discharge Instructions DC O2, CPAP, BIPAP needs Home O2 Discharge instructions: No Dressing / Incision Discharge Activity: Return to Normal Activity Return to work on:: 04/04/25 May shower in (days): 1 May resume sexual activity in: 2 weeks Lifting Restrictions: none Dressing / Incision Call your doctor if your incision/area has: Sudden Increased Bleeding and Foul Smelling Discharge Call your doctor if you observe: Fever of 101 or Higher and Using more than 1 pad per hour (for 2 hrs in a row) Follow Up Care Please Follow Up With: Fadia Car MD When: We will contact you with your pathology you do not have to schedule a pos top appointment. Call [phone] or send a [employer] message to make an appointment or with any concerns. Test Results: Test results from this visit will be discussed in further detail at your follow- up appointment, if applicable. Discharge Plan Admission Primary Reason for Your Visit: Hysteroscopy D&C Attending Provider: Fadia Car Primary Care Provider: Andrés Sagastume Instructions Print Language: Swedish Discharge Orders/Prescriptions Prescriptions: No Action levothyroxine 50 mcg tablet 50 mcg PO QDAY multivitamin Tablet 1 tab PO QAM coenzyme Q10 100 mg tablet 100 mg PO QDAY telmisartan 40 mg tablet 40 mg PO DAILY Qty: 90 3RF cholecalciferol (vitamin D3) 50 mcg (2,000 unit) Tablet 50 mcg PO DAILY ticagrelor [Brilinta] 60 mg tablet 60 mg PO BID ezetimibe [Zetia] 10 mg tablet 10 mg PO DAILY Qty: 90 3RF Referrals / Follow Up: Andrés Sagastume MD [Primary Care Provider] - Disposition Disposition (needs filled in before D/C Order can be placed): Home, Self Care
[2025-04-02] MEDS: 0.9% Normal Saline (Pres. free 10 ML Vial (10:40)
--- NOTE | 2025-04-02 10:47 | PCM.OPRPT ---
Problems Associated Problem List Diagnoses (1) Thickened endometrium: (2) PMB (postmenopausal bleeding): Operative Report (Standard) Operative Information Date of Procedure: 04/02/25 Pre-Operative Diagnosis: PMB. thickened endometrium Post-Operative Diagnosis: same Surgery/Procedure Performed: hysteroscopy D&C with polyp resection broadcast producer: No Type of Anesthesia: MAC RN Documented Start/Stop Times: Operation Date: 04/02/25 10:15 Case Time Into Pre-Op 04/02/25 08:14 Anesthesia Start 04/02/25 10:21 Into Room 04/02/25 10:21 Procedure Start 04/02/25 10:34 Procedure Start Time: 10:34 Procedure Stop Time: 10:47 Select all DRAINS/GRAFTS/IMPLANTS that apply: None Estimated Blood Loss: 10 Fluids Replaced: 500 cc LR Specimen collected: Yes Description of specimen(s) removed: endometrial polyp and curettings Description of surgery: The patient was taken to the OR where she was prepped and draped in dorsal lithotomy position. The weighted speculum was placed in the vagina and the anterior lip of the cervix was grasped with a single-tooth tenaculum. A paracervical block was administered with 7 cc of dilute vasopressin solution which is 10 units of vasopressin and 20 mL of injectable saline. The cervix was dilated serially with Hegar dilators. The Symphion hysteroscope was placed into the uterine cavity and the above findings were noted. Bilateral tubal ostia were identified. The resection device was inserted and a visual curettage of the endometrium was done and the anterior polyp removed. The instruments were removed from the vagina. The specimen was handed off and sent to pathology. All sponge and needle counts were correct. Vaginal sweep was performed by me. The patient was awakened and taken to the recovery room in stable condition. Calculated fluid deficit is 900 cc of normal saline Surgical Findings: Atrophic normal-appearing cervix and vagina, smooth polypoid material anterior endometrial wall, otherwise thin endometrium no other focal abnormalities noted both tubal ostia noted Complications Complications: No Admit VTE Documentation VTE Present on Admission: No VTE Mechan Device Prophylaxis: SCD's VTE Pharm Prophylaxis ordered?: No Reason prophylaxis not ordered: Treatment Not Indicated
--- NOTE | 2025-04-02 10:59 | PCM.POST.ANE ---
Anesthesia: Postop Eval I Current Vital Signs Temperature: 97.7 F Pulse Rate: 79 Blood Pressure: 148/89 Respiratory Rate: 16 Pulse Ox: 97 Oxygen Delivery Method: Room Air (breathing eassily and regularly) Assessment Airway patent: Yes Spontaneous unlabored respirations: Yes Mental status: Awake nausea: No Vomiting: No Anesthesia Complication: No Fluid Hydration Crystalloid volume administer (ml): 500 Total IV fluid infused: 500 Progress Note Anesthesia document: Postop Eval 1 completed: Yes
--- NOTE | 2025-04-02 12:53 | POSTOPAN2_ITS ---
Anesthesia Postop Eval I Sum Postop Eval Completion status Anesthesia document: Postop Eval 1 completed: Yes Anesthesia Postop Eval I Summary Anesthesia Postop Eval I Summary: Anesthesia Postop Eval I: Assessment Summary Airway patent Yes 04/02/25 11:00 SEED BUYER.ELLIOT Spontaneous unlabored Yes 04/02/25 11:00 SEED BUYER.ELLIOT respirations Mental status Awake 04/02/25 11:00 SEED BUYER.ELLIOT nausea No 04/02/25 11:00 SEED BUYER.ELLIOT Vomiting No 04/02/25 11:00 SEED BUYER.ELLIOT Anesthesia Postop Eval I: Fluid Summary Crystalloid volume administer 500 04/02/25 11:00 SEED BUYER.GOPIAN (ml) Colloids volume administered ( ml) Blood Product volume administered (ml) Total IV fluid infused 500 04/02/25 11:00 SEED BUYER.ELLIOT Anesthesia Postop Eval I: Summary Notes Anesthesia Complication No 04/02/25 11:00 SEED BUYER.ELLIOT Anesthesia Complication Comment: Post-operative progress note Anesthesia: Postop Eval II Evaluation Mental status: Awake and Calm Pain Level: 1 nausea: No Vomiting: No Complications Anesthesia Complication: No
--- NOTE | 2025-04-02 12:53 | PCM.POSTANE2 ---
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.ELLIOT Spontaneous unlabored Yes 04/02/25 11:00 GARLAND MACHINE OPERATOR.ELLIOT respirations Mental status Awake 04/02/25 11:00 GARLAND MACHINE OPERATOR.ELLIOT nausea No 04/02/25 11:00 GARLAND MACHINE OPERATOR.ELLIOT Vomiting No 04/02/25 11:00 GARLAND MACHINE OPERATOR.ELLIOT Anesthesia Postop Eval I: Fluid Summary Crystalloid volume administer 500 04/02/25 11:00 GARLAND MACHINE OPERATOR.GOPIAN (ml) Colloids volume administered ( ml) Blood Product volume administered (ml) Total IV fluid infused 500 04/02/25 11:00 GARLAND MACHINE OPERATOR.ELLIOT Anesthesia Postop Eval I: Summary Notes Anesthesia Complication No 04/02/25 11:00 GARLAND MACHINE OPERATOR.ELLIOT Anesthesia Complication Comment: Post-operative progress note Anesthesia: Postop Eval II Evaluation Mental status: Awake and Calm Pain Level: 1 nausea: No Vomiting: No Complications Anesthesia Complication: No
== END 2025-04-02 12:39 | disposition home or self-care (01) ==
LOC: SDC 07:59 → AC 08:01
PROVIDERS: PCP Family Medicine; Referring Provider Obstetrics & Gynecology; Visit Provider Obstetrics & Gynecology
PROC: 0UB98ZZ Excision of Uterus, Via Natural or Artificial Opening Endoscopic (ICD-10-PCS; CPT 58558; principal; 2025-04-02 10:00)
DX: N84.0 Polyp of corpus uteri (principal); N18.31 Chronic kidney disease, stage 3a; N95.0 Postmenopausal bleeding; Z79.890 Hormone replacement therapy; R93.89 Abnormal findings on diagnostic imaging of other specified body structures; I25.10 Atherosclerotic heart disease of native coronary artery without angina pectoris; I12.9 Hypertensive chronic kidney disease with stage 1 through stage 4 chronic kidney disease, or unspecified chronic kidney disease; K21.9 Gastro-esophageal reflux disease without esophagitis; E03.9 Hypothyroidism, unspecified; Z79.82 Long term (current) use of aspirin; Z79.02 Long term (current) use of antithrombotics/antiplatelets; Z79.899 Other long term (current) drug therapy
CPT/HCPCS: 58558; 00952; 88305; J2405

== ENCOUNTER → 2025-07-22 | Outpatient (CLI) | payer MEDICARE, OTHER, SELFPAY ==
--- NOTE | 2025-07-22 11:15 | RAD_ITS ---
PROCEDURE: HIP, UNI W/ PELVIS 2-3 VIEWS 07/22/2025 REASON FOR EXAM: PAIN DOWN LEFT LEG TECHNIQUE: Procedure Code: RAD Modality: DX Procedure: HIP, UNI W/ PELVIS 2-3 VIEWS Laterality: Left COMPARISON: February 01, 2023 FINDINGS: Fusion hardware is noted at L4-L5. Sacroiliac joints are intact. The symphysis pubis is mildly degenerated. There is no pelvic fracture. The right hip joint is degenerated but intact. There is no acute fracture or dislocation involving the left hip joint. Atherosclerotic vascular calcifications overlie the left hip. RAD/HIP, UNI W/ Pelvis 2-3 Views IMPRESSION: No acute bony abnormality. Degenerative changes and surgical changes as above. Reading [facility]
--- NOTE | 2025-07-22 11:15 | RAD_ITS ---
PROCEDURE: LUMBAR SPINE 2 OR 3 VIEWS 07/22/2025 REASON FOR EXAM: LEFT LEG PAIN. KNOWN LUMBAR DDD TECHNIQUE: Procedure Code: RADSPLL Modality: DX Procedure: LUMBAR SPINE 2 OR 3 VIEWS COMPARISON: February 01, 2023 FINDINGS: There is similar-appearing levoconvex scoliosis of the lumbar spine and fusion hardware at L4-L5. No acute fracture or subluxation. Sacroiliac joints are mildly degenerated. Hip joints are mildly degenerated. There is a large amount of gas noted throughout the colon. The pattern is fairly nonobstructive however. No pathologic calcifications. RAD/Lumbar Spine 2 or 3 Views IMPRESSION: Degenerative disc disease and surgical changes with alignment abnormalities sim ilar to the previous study as detailed above. No acute fracture or subluxation. Reading [facility]
== END | disposition home or self-care (01) ==
LOC: MTRAD 11:15
PROVIDERS: PCP Family Medicine; Referring Provider Family Medicine; Visit Provider Family Medicine
DX: M79.605 Pain in left leg (principal)
CPT/HCPCS: 72100; 73502

== ENCOUNTER → 2025-07-23 | Outpatient (CLI) | payer MEDICARE, OTHER, SELFPAY ==
[2025-07-23 10:29] LABS: Hematocrit 38.5 % (37-47); Hemoglobin 12.3 g/dL (12.0-15.0); Immature Granulocytes Count 0.030 X10^3/uL (0.0-0.0); Mean Corp Hgb Conc 31.9 g/dL (32-36); Mean Corpuscular Volume 89.7 fL (81-99); Mean Platelet Vol. 10.4 fl (6.2-12.0); NRBC Flagged by Analyzer 0 % (0-5); Platelet Count 204 K/mm3 (150-450); RBC Distribution Width CV 14.6 % (11.6-14.6); RBC Distribution Width SD 47.8 fl (35.1-43.9); Red Blood Count 4.29 M/mm3 (4.2-5.4); White Blood Count 5.8 K/mm3 (4.4-11.0)
[2025-07-23 11:11] LABS: PTHIN 77 pg/mL (11-61)
[2025-07-23 11:15] LABS: AST(SGOT) 22 U/L (<=31); Alanine Aminotransfer ALT/SGPT 11 U/L (<=34); Albumin, Serum 4.2 g/dL (3.4-4.8); Alkaline Phosphatase 63 U/L (35-104); Anion Gap 11 (5-15); BUN 16 mg/dL (4-19); BUN/Creat Ratio 15.7 RATIO (10-20); CRP < 3.00 mg/L (0.0-3.0); Calcium,Total 9.3 mg/dL (7.6-11.0); Carbon Dioxide 25.6 mmol/L (21.0-32.0); Chloride 106 mmol/L (98-108); Cholesterol 181 mg/dL (<=200); Globulin 3.1 g/dL (2.2-4.2); Glucose 102 mg/dL (70-99); Low Density Lipoprotein Calc. 116 mg/dL; Potassium 4.4 mmol/L (3.3-5.1); Triglycerides 88 mg/dL; Very Low Density Lipoprotein 18 mg/dL (5-40); Vitamin B12 436 pg/mL (180-914); Vitamin D,25 Hydroxy 38.1 ng/mL (30-100); cholesterol:hdl ratio screen 3.69
[2025-07-23 11:16] LABS: AST(SGOT) 22 U/L (<=31); Alanine Aminotransfer ALT/SGPT 11 U/L (<=34); Albumin, Serum 4.1 g/dL (3.4-4.8); Alkaline Phosphatase 63 U/L (35-104); Bilirubin, Direct 0.20 mg/dL (0.00-0.30); Cholesterol 184 mg/dL (<=200); Globulin 3.2 g/dL (2.2-4.2); Low Density Lipoprotein Calc. 119 mg/dL; Triglycerides 87 mg/dL; Very Low Density Lipoprotein 17 mg/dL (5-40); cholesterol:hdl ratio screen 3.78
[2025-07-24 17:08] LABS: Folate, Hemolysate Test 323.0 ng/mL (Not Estab.); Folate, RBC (Hct) Test 40.5 % (34.0-46.6); Folates, RBC Test 798 ng/mL (>498); PROEL- A/G Ratio 1.0 (0.7-1.7); PROEL- Albumin 3.3 g/dL (2.9-4.4); PROEL- Alpha-1 Globulin 0.2 g/dL (0.0-0.4); PROEL- Alpha-2 Globulin 0.8 g/dL (0.4-1.0); PROEL- Beta Globulin 1.0 g/dL (0.7-1.3); PROEL- Gamma Globulin 1.1 g/dL (0.4-1.8); PROEL- Globulin, Total 3.2 g/dL (2.2-3.9); PROEL- TOTAL PROTEIN 6.5 g/dL (6.0-8.5); PROEL-M-Spike Not Observed g/dL (Not Observed)
== END | disposition home or self-care (01) ==
LOC: MTLAB 07:56
PROVIDERS: Nurse Practitioner Family; PCP Family Medicine; Referring Provider Family Medicine; Visit Provider Family Medicine
DX: N25.81 Secondary hyperparathyroidism of renal origin (principal); N18.32 Chronic kidney disease, stage 3b; R79.89 Other specified abnormal findings of blood chemistry; E78.5 Hyperlipidemia, unspecified; M10.9 Gout, unspecified; M79.605 Pain in left leg
CPT/HCPCS: 36415; 80053; 80061; 80076; 82306; 82607; 82747; 83970; 84165; 84443; 85014; 85025; 86140